=== PATIENT | female | born 1975 | race Two or more races ===

== ENCOUNTER 2021-11-03 13:07 | Emergency (ER) | payer MEDICAID, SELFPAY ==
[2021-11-03 13:34] VITALS: BP 158/85; PULSE 93; RESP 18; TEMP 36.6; O2SAT 100
[2021-11-03 13:57] LABS: MANUAL DIFF FLAG NO
[2021-11-03 14:00] LABS: Basophils Percent Auto 0.3 % (0-2); Eosinophils Absolute Auto 0.1 X10*3/uL (0.0-0.4); Eosinophils Percent Auto 0.8 % (0-4); Hematocrit 40.9 % (37.0-47.0); Hemoglobin 13.8 g/dl (12.0-16.0); Imm Gran Abs Auto 0.03 X10*3/uL (0.00-0.03); Imm Gran Pct Auto 0.4 % (0.0-0.4); Lymphocytes Absolute Auto 1.8 X10*3/uL (1.2-4.9); Lymphocytes Percent Auto 22.6 % (20-40); Mean Corpuscular HGB Conc 33.7 g/dl (31.0-35.0); Mean Corpuscular Hemoglobin 32.9 pg (27.0-33.0); Mean Corpuscular Volume 97.6 fL (80.0-98.0); Mean Platelet Volume 8.8 fL (9.4-12.3); Monocytes Absolute Auto 0.4 X10*3/uL (0.1-1.2); Monocytes Percent Auto 4.5 % (2-11); Neutrophils Absolute Auto 5.6 x10*3/uL (2.0-8.3); Neutrophils Percent Auto 71.4 % (45-73); Platelet Count 179 X10*3/uL (160-400); Red Blood Count 4.19 X10*6/uL (4.20-5.50); Red Cell Distribution Width 12.6 % (11.0-16.0); White Blood Count 7.8 X10*3/uL (4.8-10.8)
[2021-11-03 14:09] LABS: Anion Gap 14 (12-20); Blood Urea Nitrogen 9 mg/dL (9-16); Calcium 9.4 mg/dL (8.4-10.2); Carbon Dioxide 28 mmol/L (22-29); Chloride 103 mmol/L (96-108); Creatinine Clr Calc Pharmacy 69.2; Estimated Glomerular Filt Rate > 60; Glucose Random 119 mg/dL (60-115); Potassium 4.5 mmol/L (3.3-5.1); Sodium 140 mmol/L (135-145)
== END 2021-11-03 16:56 | disposition left against medical advice (07) ==
PROVIDERS: Emergency Provider Emergency Medicine
DX: R51.9 Headache, unspecified (principal); R11.10 Vomiting, unspecified; I10 Essential (primary) hypertension
CPT/HCPCS: 36415; 80048; 85025; 99281; 99283

== ENCOUNTER 2022-01-15 13:10 | Outpatient (REF) | payer MEDICAID, SELFPAY ==
--- NOTE | ~2022-01-15 | MM_ITS ---
EXAMINATION: MM DIAGNOSTIC DIGITAL BREAST TOMOSYNTHESIS, BILATERAL TARGETED LEFT BREAST ULTRASOUND CLINICAL INFORMATION: Left breast pain. COMPARISON: Mammography: 03/10/2018. TECHNIQUE: Digital breast tomosynthesis is performed in both the craniocaudal and mediolateral oblique views along with computer-aided detection (CAD). Synthesized 2D images are generated from the tomosynthesis. Additional right breast exaggerated craniocaudal view was performed. Targeted left breast ultrasound. FINDINGS: There are scattered areas of fibroglandular density (ACR BI-RADS breast composition Category b). There has been symmetric increase in breast density since the previous study of 2019. I have no history of possible breast mammoplasty or significant loss of weight. There are no significant masses, abnormal calcifications, or other abnormalities. There is a question of asymmetric density in the deep lateral aspect of the right breast on craniocaudal view; however, on exaggerated craniocaudal view this is seen to have represented superimposition of fibroglandular tissue with no residual suspicious abnormality. Targeted left breast ultrasound in the region of the patients pain did not demonstrate any abnormal cystic or solid mass. No region of abnormal distal sound shadowing was identified. No edematous change within the parenchyma is seen. The results were discussed with the patient at the time of the visit. MM/MM tomosynthesis diagnostic BI IMPRESSION: No mammographic or ultrasound evidence of malignancy. ASSESSMENT: BI-RADS 1: Negative. RECOMMENDATION: Routine annual mammography screening. Clinical follow up. This patient's information was entered into a reminder system with a target due date for their next mammogram.
== END 2022-01-15 13:11 | disposition home or self-care (01) ==
LOC: HO.MAMMO 13:10
PROVIDERS: PCP Advanced Practice Midwife; Visit Provider Advanced Practice Midwife
DX: N64.4 Mastodynia (principal)
CPT/HCPCS: 76642; 77062; 77066

== ENCOUNTER → 2022-02-18 11:18 | Outpatient (BNVA) | payer MEDICAID, SELFPAY | PROVIDERS: PCP Advanced Practice Midwife; Referring Provider Advanced Practice Midwife; Visit Provider Physician Assistant | DX: Z12.11 Encounter for screening for malignant neoplasm of colon (principal); B20 Human immunodeficiency virus [HIV] disease; F17.210 Nicotine dependence, cigarettes, uncomplicated; F12.20 Cannabis dependence, uncomplicated; F14.20 Cocaine dependence, uncomplicated; Z91.14 Patient's other noncompliance with medication regimen | CPT/HCPCS: 99202 ==

== ENCOUNTER 2022-02-23 09:56 | Outpatient (REF) | payer MEDICAID, SELFPAY ==
--- NOTE | ~2022-02-23 | XR_ITS ---
EXAMINATION: XR chest 2V CLINICAL INFORMATION: Reason for Exam SYMPTOMS AND SIGNS INVOLVING THE CIRC AND RESP SYSTEM COMPARISON: Chest radiograph 04/28/2017 TECHNIQUE: 2 views of the chest FINDINGS: Clear lungs. No pneumothorax or pleural effusion. Normal cardiomediastinal silhouette. XR/XR chest 2V IMPRESSION: * Clear lungs.
== END 2022-02-23 09:57 | disposition home or self-care (01) ==
LOC: HO.RESP 09:56
PROVIDERS: PCP Registered Nurse; Visit Provider Registered Nurse
DX: R09.89 Other specified symptoms and signs involving the circulatory and respiratory systems (principal); R06.02 Shortness of breath
CPT/HCPCS: 71046

== ENCOUNTER 2022-07-13 10:09 | Emergency (ER) | payer MEDICAID, SELFPAY ==
--- NOTE | ~2022-07-13 | CT_ITS ---
EXAMINATION: CT ABDOMEN AND PELVIS WITH CONTRAST CLINICAL INFORMATION: Pelvic pain. Low back pain. COMPARISON: Previous CT of the abdomen and pelvis July 2017 TECHNIQUE: Multidetector volumetric images were obtained from the superior aspect of the liver through the pubic symphysis following administration 85 mL of Omnipaque 350 intravenous contrast. Sagittal and coronal reformatted images were obtained on the technologist's workstation. Oral contrast: Yes This CT examination was performed using dose optimization techniques as appropriate, variously including the following: *Automated exposure control *Adjustment of mA and/or kV according to patient size (this includes techniques or standardized protocols for targeted exams where dose is matched to indication/reason for exam; i.e. extremities or head) *Use of iterative reconstruction technique DLP: 601 mGy-cm FINDINGS: LUNG BASES: The visualized lung bases are unremarkable. LIVER, GALLBLADDER, AND BILIARY TREE: The liver is normal in size, shape and attenuation. No focal hepatic lesion or biliary ductal dilatation is present. The gallbladder has been removed. PANCREAS: Unremarkable. SPLEEN: Unremarkable. ADRENAL GLANDS: Unremarkable. KIDNEYS: Small nonobstructing stone. Small cyst in the upper pole. No imaging follow-up recommended. The right kidney is normal. BLADDER: Unremarkable. GASTROINTESTINAL TRACT: The small and large bowel are unremarkable. The appendix is unremarkable. ABDOMINAL WALL: No significant hernia is appreciated. LYMPH NODES: Normal. VASCULAR: Unremarkable. PELVIC VISCERA: Unremarkable. OSSEOUS STRUCTURES: Curvature of the lower lumbar spine to the left. CT/CT abdomen pelvis w IV con IMPRESSION: Small nonobstructing left renal stone. Fleischner guidelines were followed.
[2022-07-13 10:11] VITALS: BP 158/89; PULSE 108; RESP 17; TEMP 36.6; O2SAT 97; BMI 33.5
[2022-07-13 11:33] LABS: MANUAL DIFF FLAG NO
[2022-07-13 11:40] LABS: Basophils Percent Auto 0.5 % (0-2); Eosinophils Absolute Auto 0.1 X10*3/uL (0.0-0.4); Hematocrit 41.3 % (37.0-47.0); Hemoglobin 14.1 g/dl (12.0-16.0); Imm Gran Abs Auto 0.05 X10*3/uL (0.00-0.03); Imm Gran Pct Auto 0.6 % (0.0-0.4); Lymphocytes Absolute Auto 2.6 X10*3/uL (1.2-4.9); Lymphocytes Percent Auto 29.3 % (20-40); Mean Corpuscular HGB Conc 34.1 g/dl (31.0-35.0); Mean Corpuscular Hemoglobin 32.7 pg (27.0-33.0); Mean Corpuscular Volume 95.8 fL (80.0-98.0); Mean Platelet Volume 9.1 fL (9.4-12.3); Monocytes Absolute Auto 0.6 X10*3/uL (0.1-1.2); Monocytes Percent Auto 6.4 % (2-11); Neutrophils Absolute Auto 5.5 x10*3/uL (2.0-8.3); Neutrophils Percent Auto 62.2 % (45-73); Platelet Count 150 X10*3/uL (160-400); Red Blood Count 4.31 X10*6/uL (4.20-5.50); Red Cell Distribution Width 12.8 % (11.0-16.0); White Blood Count 8.9 X10*3/uL (4.8-10.8)
[2022-07-13 12:28] LABS: Alanine Aminotransferase 19 U/L (0-31); Albumin Level 3.8 g/dL (3.5-5.0); Alkaline Phosphatase 91 U/L (39-117); Anion Gap 13 (12-20); Aspartate Amino Transferase 24 U/L (5-31); Bilirubin Direct 0.2 mg/dL (0.0-0.5); Bilirubin Total 0.6 mg/dL (0.0-1.0); Blood Urea Nitrogen 9 mg/dL (9-16); Calcium 8.6 mg/dL (8.4-10.2); Carbon Dioxide 18 mmol/L (22-29); Chloride 111 mmol/L (96-108); Creatinine Clr Calc Pharmacy 106.5; Estimated Glomerular Filt Rate > 60; Glucose Random 96 mg/dL (60-115); Lipase 16 U/L (8-78); Potassium 4.2 mmol/L (3.3-5.1); Sodium 138 mmol/L (135-145)
--- NOTE | 2022-07-13 12:37 | ED.GENADULT ---
HPI - General Adult General Chief complaint: Abdominal Pain Stated complaint: Back pain/L flank pain Time Seen by Provider: 07/13/22 12:32 Source: patient Mode of arrival: ambulatory Limitations: no limitations History of Present Illness HPI narrative: Patient is a 46 year old female with a past medical history of HIV (viral load undetectable), Hypertension, and Asthma. She had a colposcopy done on 06/04 at and since then has been experiencing pelvic pain radiating to her lower back, and LLQ pain. She also endorses fever, LOPEZ, and SOB. She is able to urinate and stool, but is having pain with urination. She also endorses frequent white vaginal discharge. She states she has not noticed any vaginal bleeding. She has no vaginal itching. She has taken Tylenol for pain which has not helped. She is not experiencing any chest pain. Onset (ago): month(s) (1) Location: back, abdomen and pelvis Radiation: back and flank Severity scale (1-10): 4 Relieving factors: none Exacerbating factors: none Associated symptoms: denies other symptoms Treatments prior to arrival: other (Tylenol) Related Data Home Medications Medication Instructions Recorded Confirmed atovaquone 750 mg/5 mL oral 750 mg PO BID 02/18/22 suspension bictegravir 50 mg-emtricitabine 1 tab PO DAILY 02/18/22 200 mg-tenofovir alafenam 25 mg tablet (Biktarvy) blood pressure test kit-large #1 ea 02/18/22 budesonide-formoterol HFA 160 2 puff inhalation 02/18/22 mcg-4.5 mcg/actuation aerosol inhaler (Symbicort) cyanocobalamin (vitamin B-12) 1,000 mcg PO DAILY 02/18/22 1,000 mcg tablet lisinopril 20 mg tablet 20 mg PO DAILY 02/18/22 multivitamin with folic acid 400 1 tab PO DAILY 02/18/22 mcg tablet (Tab-A-Max) quetiapine 150 mg tablet,extended 150 mg PO QPM 02/18/22 release 24 hr rosuvastatin 20 mg tablet 20 mg PO BEDTIME 02/18/22 sertraline 25 mg tablet 25 mg PO DAILY 02/18/22 sulfamethoxazole 800 1 tab PO DAILY 02/18/22 mg-trimethoprim 160 mg tablet sumatriptan succinate 50 mg tablet 50 mg PO migraine 02/18/22 varenicline 0.5 mg (11)-1 mg (42) ea PO DIRECTED 02/18/22 tablets in a dose pack Previous Rx's Medication Instructions Recorded bisacodyl 5 mg tablet,delayed 10 mg PO ONCE colonoscopy prep 1 02/18/22 release (Dulcolax (bisacodyl)) day #2 tabs polyethylene glycol 3350 17 238 g PO ONCE 1 day #238 grams 02/18/22 gram/dose oral powder (Miralax) cephalexin 500 mg capsule 500 mg PO Q6H 7 days #28 caps 07/13/22 doxycycline hyclate 100 mg tablet 100 mg PO BID 7 days #14 tabs 07/13/22 fluconazole 150 mg tablet 150 mg PO Q3D 2 doses #2 tabs 07/13/22 (Diflucan) metronidazole 500 mg tablet 500 mg PO BID 7 days #14 tabs 07/13/22 naproxen 500 mg tablet 500 mg PO BID 7 days #14 tabs 07/13/22 prednisone 20 mg tablet 20 mg PO DAILY 7 days #7 tabs 07/13/22 tamsulosin 0.4 mg capsule 0.4 mg PO BEDTIME #7 caps 07/13/22 Allergies Allergy/AdvReac Type Severity Reaction Status Date / Time hydrocodone [From VICODIN] Allergy Intermediate RASH, Unverified 02/18/22 11:53 SWELLING acetaminophen [Vicodin] Allergy Unknown Unknown Verified 02/18/22 11:53 Review of Systems Constitutional: Constitutional: Reports fever(s) and Reports headache(s) Eyes: Eyes: Reports no additional eye complaints, Denies blurry vision, Denies change in vision, Denies diplopia, Denies eye discharge, Denies loss of vision and Denies eye pain ENT: Reports headache(s) and Reports nasal discharge Cardiovascular: Cardiovascular: Denies chest pain and Reports dyspnea Respiratory: Respiratory: Reports dyspnea Gastrointestinal: Gastrointestinal: Reports abdominal pain Genitourinary: Genitourinary: Denies abnormal vaginal bleeding, Denies genital pruritis, Reports dysuria, Reports pelvic pain, Reports flank pain and Reports vaginal discharge Musculoskeletal: Musculoskeletal: Reports back pain Neurologic: Reports headache(s) and Denies loss of vision Psychiatric: Psychiatric: Reports no additional psychiatric complaints Endocrine: Endocrine: Reports no additional endocrine complaints Hematologic/Lymphatic: Hematologic/Lymphatic: Reports no additional hematologic/lymphatic complaints Allergic/Immunologic: Allergic/Immunologic: Reports no additional allergic/immunologic complaints [facility] Past Medical History Attestation statement: The following information was validated with the patient. Source: old records reviewed and nursing notes reviewed Medical History HIV (human immunodeficiency virus infection) Surgical History History of esophagogastroduodenoscopy (EGD) Family History Family History Unknown No problems noted. Social History Social History Household Members Other:: Lives with her mother, 4 kids live in [place] Alcohol intake: former Patient Tobacco Use Status: Current everyday Tobacco user Cigarette Packs Per Day: 2 Advance Directives: No Advance Directives Information Provided: Yes Current occupational status: disabled Physical Exam ED Vital Signs: Vital Signs - 24 hr 07/13/22 10:11 07/13/22 14:05 07/13/22 16:00 Temperature 97.9 F 98.2 F Pulse Rate 108 H 109 H 105 H Respiratory Rate 17 16 16 Blood Pressure 158/89 H 151/71 H 158/90 H Pulse Oximetry 97 97 97 Oxygen Delivery Method Nasal Cannula Room Air Room Air BMI result Body Mass Index 33.5 Const General: acute distress and ill appearing Nutritional Appearance: well nourished Orientation/consciousness: patient oriented x3 Limitations: no limitations [facility] Head: Yes normal to inspection and Yes atraumatic Ears: hearing grossly normal bilaterally and external ears normal General nose exam: Normal external nose present, no nasal discharge noted and no epistaxis Face and sinus: Yes normal facial exam, No abrasion and No laceration Mouth: Normal oral and palatal mucosa present, no drooling and no muffled voice Eyes General: appearance normal, both eyes and all related structures Periorbital: periorbital findings normal Eyelids: Yes eyelids normal Conjunctivae: conjunctivae normal Pupils: Equal, round and reactive pupils present EOM: EOMs intact bilaterally Neck Neck: Yes normal visual inspection, Yes full ROM and Yes no lymphadenopathy Chest Chest palpation & inspection: normal inspection of the chest Resp Effort & Inspection: normal respiratory effort Auscultation: clear to auscultation bilaterally, no crackles, no rhonchi and no wheezes Cardio Rate: tachycardic Rhythm: regular rhythm Heart sounds: S1 normal heart sound present and S2 normal heart sound present GI Inspection: Yes normal to inspection Palpation (GI): Soft to palpation and Tenderness to palpation present (GI) Auscultation: normal bowel sounds General: Yes CVA tenderness Back/Spine/Pelvis Back: CVA tenderness and back tenderness Thoracic/Lumbar Spine: lumbar spinal tenderness Pelvis: Other pelvic findings (pelvic tenderness) Sacrum: tenderness Coccyx: Coccyx tenderness present and Other pelvic findings (pelvic tenderness) Neuro General: patient oriented x3 Cranial nerves: Yes Equal, round and reactive pupils present Cognition (Neuro): normal cognition Motor exam (neuro): 5/5 motor strength present throughout Sensory Exam: Normal double simultaneous stimulation for sensation Coordination: [id number] test normal Extrem General: Yes normal to inspection, Yes full ROM and Yes capillary refill normal Psych Appearance: grossly normal Mental Status: mental status grossly normal Affect: normal affect Attitude: cooperative Thought process: Normal thought process present Thought content: Normal thought content present Insight: Good insight present (Psych) Medications Administered Discontinued Medications Generic Name Dose Route Start Last Admin Trade Name Freq PRN Reason Stop Dose Admin Sodium Chloride 1,000 mls @ 999 mls/hr 07/13/22 13:00 07/13/22 14:35 Ns IV 07/13/22 14:00 Infused .Q1H1M JUAN Infusion Ceftriaxone Sodium 2 gm/ 50 mls @ 100 mls/hr 07/13/22 12:54 07/13/22 14:34 Sodium Chloride IV 07/13/22 13:23 Infused ONCE ONE Infusion Iohexol 100 ml 07/13/22 13:57 07/13/22 13:57 Iohexol 350 Mg/Ml 100 Ml Infus..Btl IV 07/13/22 13:58 85 ml ONCE ONE Administration Ketorolac Tromethamine 15 mg 07/13/22 12:48 07/13/22 13:14 Ketorolac Tromethamine 15 Mg/Ml Vial IVPUSH 07/13/22 12:49 15 mg ONCE ONE Administration Morphine Sulfate 4 mg 07/13/22 14:49 07/13/22 14:53 Morphine Sulfate 4 Mg/Ml Cartridge IVPUSH 07/13/22 14:50 4 mg ONCE ONE Administration Protocol Medical Decision Making Medical Decision Making [facility] Narrative: Patient is a 46 year old assigned female at with a history of HIV (non-detectable viral load) presenting to the emergency department today with vaginal discharge and left flank pain. Patient's physical exam showed left sided CVA tenderness. Patient deferred a vaginal examination. Patient's blood work was unremarkable. Patient's urine showed an acute urinary tract infection. Patient's abdomen/pelvis CT showed a left non-obstructing kidney stone. I called and spoke to the provider that performed the colposcopy on 06/04/2022 who agreed with the plan to cover the patient for BV, yeast, and the UTI as well as giving the patient medications to assist the passing of the stone. I explained my physical exam findings as well as all test results to the patient. I answered all questions asked by the patient. I stressed the importance of the patient taking her medication as prescribed. I stressed the importance of the patient following up with her primary care provider, a urologist, and her OBGYN. I stressed the importance of the patient returning to the emergency department immediately if her symptoms were to worsen or if she were to develop any dizziness, shortness of breath, difficulty breathing, chest pain, blurry vision, loss of vision, nausea, vomiting, abdominal pain, fever, chills, back pain, or any other complaints. Patient verbalized agreement and understanding with this treatment plan and discharge. Differential Diagnosis Differential Diagnoses: The differential diagnosis associated with the presentation includes BV, UTI, kidney stone Consult Healthcare Provider Management of the patient was discussed with: Dispatcher Chief [employer] Sl[employer] (as noted in the MDM portion of this chart) Lab Data [facility] Lab Attestation statement: I reviewed the patient's lab results. 07/13/22 11:29 07/13/22 11:30 Labs: Lab Results 07/13/22 07/13/22 07/13/22 Range/Units 11:29 11:29 11:30 WBC 8.9 (4.8-10.8) X10*3/uL RBC 4.31 (4.20-5.50) X10*6/uL Hgb 14.1 (12.0-16.0) g/dl Hct 41.3 (37.0-47.0) % MCV 95.8 (80.0-98.0) fL MCH 32.7 (27.0-33.0) pg MCHC 34.1 (31.0-35.0) g/dl RDW 12.8 (11.0-16.0) % Plt Count 150 L (160-400) X10*3/uL MPV 9.1 L (9.4-12.3) fL Immature Gran % (Auto) 0.6 H (0.0-0.4) % Neut % (Auto) 62.2 (45-73) % Lymph % (Auto) 29.3 (20-40) % Whiteside % (Auto) 6.4 (2-11) % Eos % (Auto) 1.0 (0-4) % Baso % (Auto) 0.5 (0-2) % Lymph # (Auto) 2.6 (1.2-4.9) X10*3/uL Whiteside # (Auto) 0.6 (0.1-1.2) X10*3/uL Eos # (Auto) 0.1 (0.0-0.4) X10*3/uL Baso # (Auto) 0.0 (0.0-0.2) X10*3/uL Abs Immat Gran (auto) 0.05 H (0.00-0.03) X10*3/uL Absolute Neuts (auto) 5.5 (2.0-8.3) x10*3/uL Absolute Nucleated RBC 0.000 (0.0-0.012) X10*3/uL Nucleated RBC % (auto) 0.0 (0.0-0.2) /100WBC ESR 12 (0-20) MM/HR Sodium 138 (135-145) mmol/L Potassium 4.2 (3.3-5.1) mmol/L Chloride 111 H (96-108) mmol/L Carbon Dioxide 18 L (22-29) mmol/L Anion Gap 13 (12-20) BUN 9 (9-16) mg/dL Creatinine 0.59 (0.5-1.4) mg/dL Estim Creat Clear Calc 106.5 Estimated GFR > 60 Random Glucose 96 (60-115) mg/dL Calcium 8.6 D (8.4-10.2) mg/dL Total Bilirubin 0.6 (0.0-1.0) mg/dL Direct Bilirubin 0.2 (0.0-0.5) mg/dL AST 24 (5-31) U/L ALT 19 (0-31) U/L Alkaline Phosphatase 91 (39-117) U/L C-Reactive Protein 0.47 (< or = 0.50) mg/dL Total Protein 7.0 (6.5-8.0) g/dL Albumin 3.8 (3.5-5.0) g/dL Lipase 16 (8-78) U/L Beta HCG, Quant < 2 mIU/mL Urine Color Urine Appearance Urine pH (5.0-9.0) Ur Specific [place] (1.005-1.025) Urine Protein (Neg-Trace) mg/dL Urine Glucose (UA) (Negative) mg/dL Urine Ketones (Negative) mg/dL Urine Blood (Negative) Urine Nitrite (Negative) Ur Leukocyte Esterase (Negative) Urine RBC (0-2) /HPF Urine WBC (0-5) /HPF Ur Squamous Epith Cells (0-2) /HPF Urine Bacteria (None Seen) Hyaline Casts (0-2) /LPF Urine Test (NEGATIVE) 07/13/22 07/13/22 Range/Units 13:04 13:04 WBC (4.8-10.8) X10*3/uL RBC (4.20-5.50) X10*6/uL Hgb (12.0-16.0) g/dl Hct (37.0-47.0) % MCV (80.0-98.0) fL MCH (27.0-33.0) pg MCHC (31.0-35.0) g/dl RDW (11.0-16.0) % Plt Count (160-400) X10*3/uL MPV (9.4-12.3) fL Immature Gran % (Auto) (0.0-0.4) % Neut % (Auto) (45-73) % Lymph % (Auto) (20-40) % Whiteside % (Auto) (2-11) % Eos % (Auto) (0-4) % Baso % (Auto) (0-2) % Lymph # (Auto) (1.2-4.9) X10*3/uL Whiteside # (Auto) (0.1-1.2) X10*3/uL Eos # (Auto) (0.0-0.4) X10*3/uL Baso # (Auto) (0.0-0.2) X10*3/uL Abs Immat Gran (auto) (0.00-0.03) X10*3/uL Absolute Neuts (auto) (2.0-8.3) x10*3/uL Absolute Nucleated RBC (0.0-0.012) X10*3/uL Nucleated RBC % (auto) (0.0-0.2) /100WBC ESR (0-20) MM/HR Sodium (135-145) mmol/L Potassium (3.3-5.1) mmol/L Chloride (96-108) mmol/L Carbon Dioxide (22-29) mmol/L Anion Gap (12-20) BUN (9-16) mg/dL Creatinine (0.5-1.4) mg/dL Estim Creat Clear Calc Estimated GFR Random Glucose (60-115) mg/dL Calcium (8.4-10.2) mg/dL Total Bilirubin (0.0-1.0) mg/dL Direct Bilirubin (0.0-0.5) mg/dL AST (5-31) U/L ALT (0-31) U/L Alkaline Phosphatase (39-117) U/L C-Reactive Protein (< or = 0.50) mg/dL Total Protein (6.5-8.0) g/dL Albumin (3.5-5.0) g/dL Lipase (8-78) U/L Beta HCG, Quant mIU/mL Urine Color Yellow Urine Appearance Cloudy Urine pH 7.0 (5.0-9.0) Ur Specific [place] 1.025 (1.005-1.025) Urine Protein Trace (Neg-Trace) mg/dL Urine Glucose (UA) Negative (Negative) mg/dL Urine Ketones Negative (Negative) mg/dL Urine Blood Negative (Negative) Urine Nitrite Negative (Negative) Ur Leukocyte Esterase Moderate (2+) H (Negative) Urine RBC 3-5 H (0-2) /HPF Urine WBC 21-50 H (0-5) /HPF Ur Squamous Epith Cells 3-5 (0-2) /HPF Urine Bacteria 1+ (None Seen) Hyaline Casts 0-2 (0-2) /LPF Urine Test NEGATIVE (NEGATIVE) Independent Interpretation I performed an independent interpretation of an: CT Scan Interpretation: My interpretation is in agreement with the radiologist's impression of this imaging study. EXAMINATION: CT ABDOMEN AND PELVIS WITH CONTRAST? CLINICAL INFORMATION: Pelvic pain. Low back pain.? COMPARISON: Previous CT of the abdomen and pelvis July 2017 TECHNIQUE: Multidetector volumetric images were obtained from the superior aspect of the liver through the pubic symphysis following administration 85 mL of Omnipaque 350 intravenous contrast. Sagittal and coronal reformatted images were obtained on the technologist's workstation.? Oral contrast: Yes This CT examination was performed using dose optimization techniques as appropriate, variously including the following: *Automated exposure control *Adjustment of mA and/or kV according to patient size (this includes techniques or standardized protocols for targeted exams where dose is matched to indication/reason for exam; i.e. extremities or head) *Use of iterative reconstruction technique DLP: 601 mGy-cm FINDINGS: LUNG BASES: The visualized lung bases are unremarkable.? LIVER, GALLBLADDER, AND BILIARY TREE: The liver is normal in size, shape and attenuation. No focal hepatic lesion or biliary ductal dilatation is present. The gallbladder has been removed. PANCREAS: Unremarkable.? SPLEEN: Unremarkable.? ADRENAL GLANDS: Unremarkable.? KIDNEYS: Small nonobstructing stone. Small cyst in the upper pole. No imaging follow-up recommended. The right kidney is normal. BLADDER: Unremarkable.? GASTROINTESTINAL TRACT: The small and large bowel are unremarkable. The appendix is unremarkable.? ABDOMINAL WALL: No significant hernia is appreciated.? LYMPH NODES: Normal. VASCULAR: Unremarkable. PELVIC VISCERA: Unremarkable.? OSSEOUS STRUCTURES: Curvature of the lower lumbar spine to the left. CT/CT abdomen pelvis w IV con IMPRESSION: Small nonobstructing left renal stone. ? Fleischner guidelines were followed. Dictated By: Tamica Benoit MD Signed By: Electronically signed by Tamica Benoit MD 07/13/22 1526 Critical Care Time Critical Care Time Critical Care Time: Yes Total Critical Care Time: 45 Attestation: I spent 45 minutes of Critical Care Time with this patient. This does not include time spent on separately reported billable procedures. Discharge Plan Discharge Clinical Impression: Kidney stone, Vaginal discharge Patient Disposition: Home, Self-Care Instructions: Kidney Stones (ED), Vaginal Discharge (ED) Additional Instructions: Follow up with your primary care provider, your urologist, and an OBGYN. Keep your appointment at your OBGYN for 07/26/2022. Return to the emergency department immediately if your symptoms worsen or if you develop any dizziness, shortness of breath, difficulty breathing, chest pain, blurry vision, loss of vision, nausea, vomiting, abdominal pain, fever, chills, back pain, or any other complaints. Prescriptions: New fluconazole [Diflucan] 150 mg tablet 150 mg PO Q3D Qty: 2 0RF prednisone 20 mg tablet 20 mg PO DAILY 7 Days Qty: 7 0RF cephalexin 500 mg capsule 500 mg PO Q6H 7 Days Qty: 28 0RF doxycycline hyclate 100 mg tablet 100 mg PO BID 7 Days Qty: 14 0RF naproxen 500 mg tablet 500 mg PO BID 7 Days Qty: 14 0RF tamsulosin 0.4 mg capsule 0.4 mg PO BEDTIME Qty: 7 0RF metronidazole 500 mg tablet 500 mg PO BID 7 Days Qty: 14 0RF No Action Biktarvy 50-200-25 mg tablet 1 tab PO DAILY quetiapine 150 mg tablet extended release 24 hr 150 mg PO QPM sertraline 25 mg tablet 25 mg PO DAILY budesonide-formoterol [Symbicort] 160-4.5 mcg/actuation HFA aerosol inhaler 2 puff inhalation sumatriptan succinate 50 mg tablet 50 mg PO lisinopril 20 mg tablet 20 mg PO DAILY (DME) blood pressure test kit-large Kit See Rx Instructions .ROUTE .MEDSUPPLY Qty: 1 Rx Instructions: As directed varenicline 0.5 mg (11)- 1 mg (42) tablets,dose pack PO DIRECTED cyanocobalamin (vitamin B-12) 1,000 mcg tablet 1,000 mcg PO DAILY sulfamethoxazole-trimethoprim 800-160 mg tablet 1 tab PO DAILY rosuvastatin 20 mg tablet 20 mg PO BEDTIME multivitamin with folic acid [Tab-A-Max] 400 mcg tablet 1 tab PO DAILY atovaquone 750 mg/5 mL suspension 750 mg PO BID bisacodyl [Dulcolax (bisacodyl)] 5 mg tablet,delayed release (DR/EC) 10 mg PO ONCE 1 Days Qty: 2 0RF Rx Instructions: Take 2 tablets by mouth at 12:00pm the day before your procedure. polyethylene glycol 3350 [Miralax] 17 gram/dose powder 238 g PO ONCE 1 Days Qty: 238 0RF Rx Instructions: Take as directed by mouth the day before your procedure. [place]: [facility] [place] [facility] [place]] (Call to establish and follow up with a urologist. ) Fanny Pedersen, TEXTILE SCIENCE TECHNICIAN [Primary Care Provider] - Stand Alone Forms: Work/School Release Print Language: Romansh
[2022-07-13] MEDS: 0.9 % Sodium Chloride 1,000 ML 999 ML IV (13:14)
[2022-07-13] MEDS: Ketorolac Tromethamine 15 MG/ML VIAL IVPUSH (13:14)
[2022-07-13] MEDS: cefTRIAXone sodium 2 GM in 0.9 % Sodium Chloride 50 ML IV (13:14)
[2022-07-13 13:21] LABS: Appearance Urine Cloudy; Color Urine Yellow; Glucose Urine UA Negative (Negative); Leukocyte Esterase Urine Moderate (2+) (Negative); Nitrite Urine Negative (Negative); Specific Gravity - Urine 1.025 (1.005-1.025); UMIC TRIGGER UACC YES; Urine Blood Negative (Negative); Urine Ketones Negative (Negative); Urine Protein Trace mg/dL (Neg-Trace)
[2022-07-13 13:23] LABS: UPreg QC Valid YES; Urine Pregnancy NEGATIVE (NEGATIVE)
[2022-07-13 13:26] LABS: Bacteria Urine 1+ (None Seen); Hyaline Casts Urine 0-2 /LPF (0-2); UACC Culture Trigger YES; WBC Urine 21-50 /HPF (0-5)
[2022-07-13 13:28] LABS: C Reactive Protein 0.47 mg/dL (< or = 0.50)
[2022-07-13 13:46] LABS: HCG Quantitative < 2 mIU/mL
[2022-07-13 13:57] LABS: Erythrocyte Sedimentation Rate 12 MM/HR (0-20)
[2022-07-13] MEDS: iohexoL 350 MG/ML 100 ML INFUS..BTL IV (13:57)
[2022-07-13 14:05] VITALS: BP 151/71; PULSE 109; RESP 16; O2SAT 97
[2022-07-13] MEDS: Morphine Sulfate 4 MG/ML CARTRIDGE IVPUSH (14:53)
[2022-07-13 16:00] VITALS: BP 158/90; PULSE 105; RESP 16; TEMP 36.8; O2SAT 97
[2022-07-13] MEDS: oxyCODONE HCl Immed Release 5 MG TABLET 10 MG PO (17:58)
[2022-07-13] MEDS: cefTRIAXone sodium 500 MG, Lidocaine HCl 1 % MPF 1 ML IM (17:58)
== END 2022-07-13 18:02 | disposition home or self-care (01) ==
PROVIDERS: Physician Assistant Medical; Emergency Provider Emergency Medicine; PCP Registered Nurse
DX: N20.0 Calculus of kidney (principal); N89.8 Other specified noninflammatory disorders of vagina; B20 Human immunodeficiency virus [HIV] disease; F17.210 Nicotine dependence, cigarettes, uncomplicated; Z79.02 Long term (current) use of antithrombotics/antiplatelets; Z79.899 Other long term (current) drug therapy
CPT/HCPCS: 36415; 74177; 80048; 80076; 81001; 81025; 83690; 84702; 85025; 85652; 86140; 87086; 96365; 96372; 96375; 99285; J0696; J1885; J2270; Q9967

== ENCOUNTER 2022-08-26 15:35 | Emergency (ER) | payer MEDICAID, SELFPAY ==
[2022-08-26] VITALS (7 sets, daily range): BP systolic 144–166; BP diastolic 68–81; PULSE 83–92; RESP 16–19; TEMP 36.7–37.3; O2SAT 97–100; BMI 35.9
--- NOTE | ~2022-08-26 | CT_ITS ---
EXAMINATION: CT ABDOMEN AND PELVIS WITHOUT CONTRAST CLINICAL INFORMATION: Left-sided abdominal pain. History of obstructing ureter stone COMPARISON: None available. TECHNIQUE: Multidetector volumetric imaging was performed from the superior aspect of the liver through the pubic symphysis. Sagittal and coronal reformatted images were obtained on the technologist's workstation. This CT examination was performed using dose optimization techniques as appropriate, variously including the following: *Automated exposure control *Adjustment of mA and/or kV according to patient size (this includes techniques or standardized protocols for targeted exams where dose is matched to indication/reason for exam; i.e. extremities or head) *Use of iterative reconstruction technique DLP: 6:30 mGy-cm FINDINGS: LUNG BASES: There is minimal left basilar atelectasis. Heart size is normal. LIVER, GALLBLADDER, AND BILIARY TREE: The liver is normal in size, shape, and attenuation. No focal hepatic lesion or biliary ductal dilatation is present. The gallbladder has been surgically removed. PANCREAS: Unremarkable. SPLEEN: Unremarkable. ADRENAL GLANDS: Unremarkable. KIDNEYS AND URETERS: The kidneys are normal in size, shape, and attenuation. There is a nonobstructive 3 mm radiopaque calculi mid pole left kidney. Right kidney is unremarkable. No caliectasis or hydronephrosis seen. A 7 mm hypodensity seen upper pole left kidney probable small cyst. BLADDER: Unremarkable. GASTROINTESTINAL TRACT: There is a large amount of stool and gas seen in the colon without any significant distention. The small bowel loops are normal caliber. Appendix is normal caliber with intraluminal hyperdense material likely appendicolith. There is no fat stranding. ABDOMINAL WALL: No significant hernia is appreciated. LYMPH NODES: No abnormal retroperitoneal lymph nodes. VASCULAR: There is atherosclerotic calcification of abdominal aorta and common iliac vessels PELVIC VISCERA: There are several phleboliths in the pelvis. The uterus is anteverted and unremarkable. No adnexal mass or free fluid seen. OSSEOUS STRUCTURES: No aggressive lytic or sclerotic process seen. CT/CT abdomen pelvis wo IV con IMPRESSION: 1. Nonobstructive 3 mm radiopaque calculi mid pole left kidney. No caliectasis or hydronephrosis seen. Probable small cyst upper pole left kidney. No change from CT abdomen and pelvis 07/13/2022. 2. Moderate constipation without obstruction. Fleischner guidelines were followed.
--- NOTE | 2022-08-26 15:49 | ED_ITS ---
HPI - General Adult General Chief complaint: Abdominal Pain Stated complaint: Lower back pain/abd pain/feet swollen/n Time Seen by Provider: 08/26/22 19:16 Source: patient and family Mode of arrival: ambulatory Limitations: no limitations History of Present Illness HPI narrative: 46-year-old female presented with left flank pain/left side abdominal pain with the decrease urine output for the last 3 days patient also has been complaining of lower extremity swelling. Patient had a history of kidney stone in the past, patient also feels nauseous. No dysuria, no frequency urination. Normal bowel movement, passing flatus. Related Data Home Medications Medication Instructions Recorded Confirmed atovaquone 750 mg/5 mL oral 750 mg PO BID 02/18/22 suspension bictegravir 50 mg-emtricitabine 1 tab PO DAILY 02/18/22 200 mg-tenofovir alafenam 25 mg tablet (Biktarvy) blood pressure test kit-large #1 ea 02/18/22 budesonide-formoterol HFA 160 2 puff inhalation 02/18/22 mcg-4.5 mcg/actuation aerosol inhaler (Symbicort) cyanocobalamin (vitamin B-12) 1,000 mcg PO DAILY 02/18/22 1,000 mcg tablet lisinopril 20 mg tablet 20 mg PO DAILY 02/18/22 multivitamin with folic acid 400 1 tab PO DAILY 02/18/22 mcg tablet (Tab-A-Max) quetiapine 150 mg tablet,extended 150 mg PO QPM 02/18/22 release 24 hr rosuvastatin 20 mg tablet 20 mg PO BEDTIME 02/18/22 sertraline 25 mg tablet 25 mg PO DAILY 02/18/22 sulfamethoxazole 800 1 tab PO DAILY 02/18/22 mg-trimethoprim 160 mg tablet sumatriptan succinate 50 mg tablet 50 mg PO migraine 02/18/22 varenicline 0.5 mg (11)-1 mg (42) ea PO DIRECTED 02/18/22 tablets in a dose pack Previous Rx's Medication Instructions Recorded bisacodyl 5 mg tablet,delayed 10 mg PO ONCE colonoscopy prep 1 02/18/22 release (Dulcolax (bisacodyl)) day #2 tabs polyethylene glycol 3350 17 238 g PO ONCE 1 day #238 grams 02/18/22 gram/dose oral powder (Miralax) cephalexin 500 mg capsule 500 mg PO Q6H 7 days #28 caps 07/13/22 doxycycline hyclate 100 mg tablet 100 mg PO BID 7 days #14 tabs 07/13/22 fluconazole 150 mg tablet 150 mg PO Q3D 2 doses #2 tabs 07/13/22 (Diflucan) metronidazole 500 mg tablet 500 mg PO BID 7 days #14 tabs 07/13/22 naproxen 500 mg tablet 500 mg PO BID 7 days #14 tabs 07/13/22 prednisone 20 mg tablet 20 mg PO DAILY 7 days #7 tabs 07/13/22 tamsulosin 0.4 mg capsule 0.4 mg PO BEDTIME #7 caps 07/13/22 Allergies Allergy/AdvReac Type Severity Reaction Status Date / Time hydrocodone [From VICODIN] Allergy Intermediate RASH, Verified 08/26/22 20:33 SWELLING acetaminophen [Vicodin] Allergy Unknown Unknown Verified 08/26/22 20:33 Review of Systems Review of Systems: All other systems are reviewed and are negative Constitutional: Reports as per HPI and Reports no additional constitutional complaints Eyes: Reports as per HPI and Reports no additional eye complaints Reports system reviewed and no additional complaints, except as documented Cardiovascular: Reports as per HPI and Reports no additional cardiovascular complaints Respiratory: Reports as per HPI and Reports no additional respiratory complaints Gastrointestinal: Reports as per HPI and Reports no additional gastrointestinal complaints Genitourinary: Reports no additional female genitourinary complaints Musculoskeletal: Reports no additional musculoskeletal complaints Skin/Breast: Reports system reviewed and no additional complaints, except as docu Psychiatric: Reports no additional psychiatric complaints Endocrine: Reports no additional endocrine complaints Hematologic/Lymphatic: Reports no additional hematologic/lymphatic complaints Allergic/Immunologic: Reports no additional allergic/immunologic complaints Reports system reviewed and no additional complaints, except as documented and Reports Abnormal speech present [facility] Past Medical History Medical History HIV (human immunodeficiency virus infection) Surgical History History of esophagogastroduodenoscopy (EGD) Family History Family History Unknown No problems noted. Social History Social History Household Members Other:: Lives with her mother, 4 kids live in [place] Alcohol intake: former Patient Tobacco Use Status: Current everyday Tobacco user Cigarette Packs Per Day: 2 Smoked in Last 30 Days: Yes Advance Directives: No Advance Directives Information Provided: No Current occupational status: disabled Physical Exam ED Vital Signs: Vital Signs - 24 hr 08/26/22 16:13 08/26/22 20:00 08/26/22 20:27 Temperature 98.1 F 99.2 F 98.8 F Pulse Rate 90 92 89 Respiratory Rate 16 18 19 Blood Pressure 166/80 H 150/76 H 149/81 H Pulse Oximetry 99 98 100 Oxygen Delivery Method Room Air Room Air 08/26/22 20:34 08/26/22 21:27 08/26/22 21:54 Temperature 98.4 F Pulse Rate 91 Respiratory Rate 18 16 18 Blood Pressure 144/68 H Pulse Oximetry 97 Oxygen Delivery Method Room Air BMI result Body Mass Index 35.9 Vital signs have been reviewed as appeared to be correct. Blood pressure normal. Heart rate normal. Respiration rate normal. Temperature normal. Oxygen saturation normal. Appearance: Alert. Oriented X3. No acute distress. Head: Normal external exam. Normocephalic. Atraumatic. No Harvey signs noted. No raccoon eyes noted Eyes: PERRLA. EOMI. Conjunctiva and sclera normal. Eyelids normal. ENT: TM's Normal. Pharynx normal. Uvula midline. Moist mucous membranes. No t rismus noted. No drooling noted. No muffled voice noted. Neck: Normal inspection. Neck supple. FROM. No adenopathy. Thyroid Normal. No meningeal signs. No neck mass noted. CVS: Normal heart rate and rhythm. Heart sound normal. No murmurs noted. Pulses normal throughout. Respiratory: No respiratory distress. Painless inspiration. Breath sounds normal. No wheezes/rales/rhonchi noted. Chest nontender. No accessory muscle usage noted or decreased air movement noted. Abdomen: Soft and nontender. Bowel sounds normal in all 4 quadrants. No distention noted. No organomegaly noted. No visible injury noted. Back: Left CVA tenderness. Full range of motion noted. Skin: Skin warm and dry. Normal skin color. Normal skin turgor. No rashes/lesions/lacerations noted. Extremities: No lower extremity edema. Extremities exhibit normal range of motion. Extremities nontender. Neuro: Oriented X 3. Cranial nerve exam: II-XII are grossly intact No motor deficit. No sensory deficit. Reflexes normal. Course Course Course Narrative: 46-year-old female a past history of HIV (viral load undetectable), Hypertension, and Asthma presenting to the emergency for evaluation of left pain and decreased urine output since tuesday. The patient has a history of kidney stones, was seen in July. Vital signs stable. Plan: Labs, UA ordered Reevaluation(s) Reevaluation #1: 46-year-old female came in for evaluation of left-sided abdominal pain and decrease urine output, patient had a CT of the abdomen pelvis which showed nono bstructive uropathy, patient has unremarkable normal BUN/creatinine, no UTI. Patient feels better after was given pain medication in the emergency department. Will discharge to follow-up with PCP. Time: 23:21 Medications Administered Discontinued Medications Generic Name Dose Route Start Last Admin Trade Name Freq PRN Reason Stop Dose Admin Sodium Chloride 1,000 mls @ 999 mls/hr 08/26/22 20:25 08/26/22 20:35 Ns IV 08/26/22 21:25 999 mls/hr .Q1H1M ONE Administration Morphine Sulfate 1 mg 08/26/22 20:25 08/26/22 20:34 Morphine Sulfate 2 Mg/Ml Cartridge IVPUSH 08/26/22 20:26 1 mg ONCE ONE Administration Protocol Morphine Sulfate 2 mg 08/26/22 21:28 08/26/22 21:54 Morphine Sulfate 2 Mg/Ml Cartridge IVPUSH 08/26/22 21:29 2 mg ONCE ONE Administration Protocol Medical Decision Making Differential Diagnosis Differential Diagnoses: The differential diagnosis associated with the presentation includes (UTI, obstructive uropathy, dehydration, electrolytes abn ormalities, severe anemia, .) Admission/Observation Consideration of admission/observation: Escalation of care including admission/observation considered Lab Data MDM Lab Attestation statement: I reviewed the patient's lab results. 08/26/22 16:08 08/26/22 16:08 Labs: Lab Results 08/26/22 08/26/22 08/26/22 Range/Units 16:08 16:08 16:08 WBC 7.7 (4.8-10.8) X10*3/uL RBC 4.23 (4.20-5.50) X10*6/uL Hgb 13.6 (12.0-16.0) g/dl Hct 39.9 (37.0-47.0) % MCV 94.3 (80.0-98.0) fL MCH 32.2 (27.0-33.0) pg MCHC 34.1 (31.0-35.0) g/dl RDW 12.8 (11.0-16.0) % Plt Count 154 L (160-400) X10*3/uL MPV 9.1 L (9.4-12.3) fL Immature Gran % (Auto) 0.7 H (0.0-0.4) % Neut % (Auto) 56.4 (45-73) % Lymph % (Auto) 35.0 (20-40) % Sioux % (Auto) 6.3 (2-11) % Eos % (Auto) 1.2 (0-4) % Baso % (Auto) 0.4 (0-2) % Lymph # (Auto) 2.7 (1.2-4.9) X10*3/uL Sioux # (Auto) 0.5 (0.1-1.2) X10*3/uL Eos # (Auto) 0.1 (0.0-0.4) X10*3/uL Baso # (Auto) 0.0 (0.0-0.2) X10*3/uL Abs Immat Gran (auto) 0.05 H (0.00-0.03) X10*3/uL Absolute Neuts (auto) 4.3 (2.0-8.3) x10*3/uL Absolute Nucleated RBC 0.000 (0.0-0.012) X10*3/uL Nucleated RBC % (auto) 0.0 (0.0-0.2) /100WBC Sodium 139 (135-145) mmol/L Potassium 3.9 (3.3-5.1) mmol/L Chloride 110 H (96-108) mmol/L Carbon Dioxide 24 (22-29) mmol/L Anion Gap 9 L (12-20) BUN 9 (9-16) mg/dL Creatinine 0.65 (0.5-1.4) mg/dL Estim Creat Clear Calc 100.4 Estimated GFR > 60 Random Glucose 95 (60-115) mg/dL Calcium 8.8 (8.4-10.2) mg/dL Total Bilirubin 0.4 (0.0-1.0) mg/dL Direct Bilirubin 0.1 (0.0-0.5) mg/dL AST 19 (5-31) U/L ALT 15 (0-31) U/L Alkaline Phosphatase 81 (39-117) U/L B-Natriuretic Peptide (<100) pg/mL Total Protein 6.9 (6.5-8.0) g/dL Albumin 3.9 (3.5-5.0) g/dL Urine Color Urine Appearance Urine pH (5.0-9.0) Ur Specific Jefferson (1.005-1.025) Urine Protein (Neg-Trace) mg/dL Urine Glucose (UA) (Negative) mg/dL Urine Ketones (Negative) mg/dL Urine Blood (Negative) Urine Nitrite (Negative) Ur Leukocyte Esterase (Negative) Urine Test (NEGATIVE) Influenza Type A (PCR) NEGATIVE (Negative) Influenza Type B (PCR) NEGATIVE (Negative) RSV RNA Qual (PCR) NEGATIVE (Negative) SARS-CoV-2 RNA (RT-PCR) NEGATIVE (Negative) 08/26/22 08/26/22 08/26/22 Range/Units 20:03 20:03 20:08 WBC (4.8-10.8) X10*3/uL RBC (4.20-5.50) X10*6/uL Hgb (12.0-16.0) g/dl Hct (37.0-47.0) % MCV (80.0-98.0) fL MCH (27.0-33.0) pg MCHC (31.0-35.0) g/dl RDW (11.0-16.0) % Plt Count (160-400) X10*3/uL MPV (9.4-12.3) fL Immature Gran % (Auto) (0.0-0.4) % Neut % (Auto) (45-73) % Lymph % (Auto) (20-40) % Sioux % (Auto) (2-11) % Eos % (Auto) (0-4) % Baso % (Auto) (0-2) % Lymph # (Auto) (1.2-4.9) X10*3/uL Sioux # (Auto) (0.1-1.2) X10*3/uL Eos # (Auto) (0.0-0.4) X10*3/uL Baso # (Auto) (0.0-0.2) X10*3/uL Abs Immat Gran (auto) (0.00-0.03) X10*3/uL Absolute Neuts (auto) (2.0-8.3) x10*3/uL Absolute Nucleated RBC (0.0-0.012) X10*3/uL Nucleated RBC % (auto) (0.0-0.2) /100WBC Sodium (135-145) mmol/L Potassium (3.3-5.1) mmol/L Chloride (96-108) mmol/L Carbon Dioxide (22-29) mmol/L Anion Gap (12-20) BUN (9-16) mg/dL Creatinine (0.5-1.4) mg/dL Estim Creat Clear Calc Estimated GFR Random Glucose (60-115) mg/dL Calcium (8.4-10.2) mg/dL Total Bilirubin (0.0-1.0) mg/dL Direct Bilirubin (0.0-0.5) mg/dL AST (5-31) U/L ALT (0-31) U/L Alkaline Phosphatase (39-117) U/L B-Natriuretic Peptide 10 (<100) pg/mL Total Protein (6.5-8.0) g/dL Albumin (3.5-5.0) g/dL Urine Color Yellow Urine Appearance Clear Urine pH 6.5 (5.0-9.0) Ur Specific Jefferson 1.010 (1.005-1.025) Urine Protein Negative (Neg-Trace) mg/dL Urine Glucose (UA) Negative (Negative) mg/dL Urine Ketones Negative (Negative) mg/dL Urine Blood Negative (Negative) Urine Nitrite Negative (Negative) Ur Leukocyte Esterase Negative (Negative) Urine Test NEGATIVE (NEGATIVE) Influenza Type A (PCR) (Negative) Influenza Type B (PCR) (Negative) RSV RNA Qual (PCR) (Negative) SARS-CoV-2 RNA (RT-PCR) (Negative) Independent Interpretation I performed an independent interpretation of an: CT Scan (Abdomen pelvis:1. Nonobstructive 3 mm radiopaque calculi mid pole left kidney. No caliectasis or hydronephrosis seen. Probable small cyst upper pole left kidney. No change from CT abdomen and pelvis 07/13/2022. 2. Moderate constipation without obstruction. ) Radiology Impression Discussion of test interpretation with radiology: I have reviewed the radiologist's reading. Discharge Plan Discharge Clinical Impression: Abdominal pain Patient Disposition: Home, Self-Care Instructions: Abdominal Pain (ED) Prescriptions: No Action fluconazole [Diflucan] 150 mg tablet 150 mg PO Q3D Qty: 2 0RF prednisone 20 mg tablet 20 mg PO DAILY 7 Days Qty: 7 0RF cephalexin 500 mg capsule 500 mg PO Q6H 7 Days Qty: 28 0RF doxycycline hyclate 100 mg tablet 100 mg PO BID 7 Days Qty: 14 0RF naproxen 500 mg tablet 500 mg PO BID 7 Days Qty: 14 0RF tamsulosin 0.4 mg capsule 0.4 mg PO BEDTIME Qty: 7 0RF metronidazole 500 mg tablet 500 mg PO BID 7 Days Qty: 14 0RF Biktarvy 50-200-25 mg tablet 1 tab PO DAILY quetiapine 150 mg tablet extended release 24 hr 150 mg PO QPM sertraline 25 mg tablet 25 mg PO DAILY budesonide-formoterol [Symbicort] 160-4.5 mcg/actuation HFA aerosol inhaler 2 puff inhalation sumatriptan succinate 50 mg tablet 50 mg PO lisinopril 20 mg tablet 20 mg PO DAILY (DME) blood pressure test kit-large Kit See Rx Instructions .ROUTE .MEDSUPPLY Qty: 1 Rx Instructions: As directed varenicline 0.5 mg (11)- 1 mg (42) tablets,dose pack PO DIRECTED cyanocobalamin (vitamin B-12) 1,000 mcg tablet 1,000 mcg PO DAILY sulfamethoxazole-trimethoprim 800-160 mg tablet 1 tab PO DAILY rosuvastatin 20 mg tablet 20 mg PO BEDTIME multivitamin with folic acid [Tab-A-Max] 400 mcg tablet 1 tab PO DAILY atovaquone 750 mg/5 mL suspension 750 mg PO BID bisacodyl [Dulcolax (bisacodyl)] 5 mg tablet,delayed release (DR/EC) 10 mg PO ONCE 1 Days Qty: 2 0RF Rx Instructions: Take 2 tablets by mouth at 12:00pm the day before your procedure. polyethylene glycol 3350 [Miralax] 17 gram/dose powder 238 g PO ONCE 1 Days Qty: 238 0RF Rx Instructions: Take as directed by mouth the day before your procedure. Referrals: Julian,[facility] [Primary Care Provider] -
[2022-08-26 16:13] LABS: MANUAL DIFF FLAG NO
[2022-08-26 16:18] LABS: Basophils Percent Auto 0.4 % (0-2); Eosinophils Absolute Auto 0.1 X10*3/uL (0.0-0.4); Eosinophils Percent Auto 1.2 % (0-4); Hematocrit 39.9 % (37.0-47.0); Hemoglobin 13.6 g/dl (12.0-16.0); Imm Gran Abs Auto 0.05 X10*3/uL (0.00-0.03); Imm Gran Pct Auto 0.7 % (0.0-0.4); Lymphocytes Absolute Auto 2.7 X10*3/uL (1.2-4.9); Mean Corpuscular HGB Conc 34.1 g/dl (31.0-35.0); Mean Corpuscular Hemoglobin 32.2 pg (27.0-33.0); Mean Corpuscular Volume 94.3 fL (80.0-98.0); Mean Platelet Volume 9.1 fL (9.4-12.3); Monocytes Absolute Auto 0.5 X10*3/uL (0.1-1.2); Monocytes Percent Auto 6.3 % (2-11); Neutrophils Absolute Auto 4.3 x10*3/uL (2.0-8.3); Neutrophils Percent Auto 56.4 % (45-73); Platelet Count 154 X10*3/uL (160-400); Red Blood Count 4.23 X10*6/uL (4.20-5.50); Red Cell Distribution Width 12.8 % (11.0-16.0); White Blood Count 7.7 X10*3/uL (4.8-10.8)
[2022-08-26 16:29] LABS: Alanine Aminotransferase 15 U/L (0-31); Albumin Level 3.9 g/dL (3.5-5.0); Alkaline Phosphatase 81 U/L (39-117); Anion Gap 9 (12-20); Aspartate Amino Transferase 19 U/L (5-31); Bilirubin Direct 0.1 mg/dL (0.0-0.5); Bilirubin Total 0.4 mg/dL (0.0-1.0); Blood Urea Nitrogen 9 mg/dL (9-16); Calcium 8.8 mg/dL (8.4-10.2); Carbon Dioxide 24 mmol/L (22-29); Chloride 110 mmol/L (96-108); Creatinine Clr Calc Pharmacy 100.4; Estimated Glomerular Filt Rate > 60; Glucose Random 95 mg/dL (60-115); Potassium 3.9 mmol/L (3.3-5.1); Sodium 139 mmol/L (135-145); Total Protein 6.9 g/dL (6.5-8.0)
[2022-08-26 17:08] LABS: Influenza A PCR NEGATIVE (Negative); Influenza B PCR NEGATIVE (Negative); Resp Syncy Virus RNA Qual PCR NEGATIVE (Negative); SARS COV2 PCR INHOUSE NEGATIVE (Negative)
--- NOTE | 2022-08-26 20:11 | MHC.EDTECH ---
this pct assumed care of pt at 1999 vitals sign taken ,pt watching television .
[2022-08-26 20:17] LABS: Appearance Urine Clear; Color Urine Yellow; Glucose Urine UA Negative (Negative); Leukocyte Esterase Urine Negative (Negative); Nitrite Urine Negative (Negative); PH 6.5 (5.0-9.0); Urine Blood Negative (Negative); Urine Ketones Negative (Negative); Urine Protein Negative (Neg-Trace)
[2022-08-26 20:18] LABS: UPreg QC Valid YES; Urine Pregnancy NEGATIVE (NEGATIVE)
[2022-08-26 20:34] LABS: B Type Natriuretic Peptide 10 pg/mL (<100)
[2022-08-26] MEDS: Morphine Sulfate 2 MG/ML CARTRIDGE 1 MG IVPUSH (20:34)
[2022-08-26] MEDS: 0.9 % Sodium Chloride 1,000 ML 999 ML IV (20:35)
[2022-08-26] MEDS: Morphine Sulfate 2 MG/ML CARTRIDGE IVPUSH (21:54)
== END 2022-08-26 23:46 | disposition home or self-care (01) ==
PROVIDERS: Physician Assistant Medical; Emergency Provider Emergency Medicine
DX: R10.9 Unspecified abdominal pain (principal); N20.0 Calculus of kidney; Z20.822 Contact with and (suspected) exposure to COVID-19; Z20.828 Contact with and (suspected) exposure to other viral communicable diseases; I10 Essential (primary) hypertension; B20 Human immunodeficiency virus [HIV] disease; F17.210 Nicotine dependence, cigarettes, uncomplicated; Z79.899 Other long term (current) drug therapy
CPT/HCPCS: 0241U; 36415; 74176; 80048; 80076; 81003; 81025; 83880; 85025; 96374; 96376; 99284; 99285; J2270

== ENCOUNTER 2022-09-01 15:29 | Outpatient (REF) | payer MEDICAID, SELFPAY ==
--- NOTE | ~2022-09-01 | XR_ITS ---
EXAMINATION: XR CHEST CLINICAL INFORMATION: Shortness of breath for one month COMPARISON: February 23, 2022 TECHNIQUE: 2 views of the chest were obtained. FINDINGS: No significant abnormality is noted involving the heart, lungs, mediastinum, bony thorax or soft tissues. XR/XR chest 2V IMPRESSION: No acute disease.
== END 2022-09-01 15:30 | disposition home or self-care (01) ==
LOC: HO.HHCX 15:29
PROVIDERS: Visit Provider Registered Nurse
DX: R06.02 Shortness of breath (principal); R60.1 Generalized edema
CPT/HCPCS: 71046

== ENCOUNTER 2022-09-17 13:24 | Outpatient (REF) | payer MEDICAID, SELFPAY ==
[2022-09-17 14:58] LABS: MANUAL DIFF FLAG NO
[2022-09-17 16:08] LABS: Basophils Percent Auto 0.3 % (0-2); Eosinophils Absolute Auto 0.1 X10*3/uL (0.0-0.4); Eosinophils Percent Auto 0.8 % (0-4); Hemoglobin 13.5 g/dl (12.0-16.0); Imm Gran Abs Auto 0.06 X10*3/uL (0.00-0.03); Imm Gran Pct Auto 0.7 % (0.0-0.4); Lymphocytes Absolute Auto 2.7 X10*3/uL (1.2-4.9); Lymphocytes Percent Auto 31.6 % (20-40); Mean Corpuscular HGB Conc 34.6 g/dl (31.0-35.0); Mean Corpuscular Hemoglobin 32.3 pg (27.0-33.0); Mean Corpuscular Volume 93.3 fL (80.0-98.0); Mean Platelet Volume 9.2 fL (9.4-12.3); Monocytes Absolute Auto 0.5 X10*3/uL (0.1-1.2); Monocytes Percent Auto 5.7 % (2-11); Neutrophils Absolute Auto 5.2 x10*3/uL (2.0-8.3); Neutrophils Percent Auto 60.9 % (45-73); Platelet Count 195 X10*3/uL (160-400); Red Blood Count 4.18 X10*6/uL (4.20-5.50); Red Cell Distribution Width 12.1 % (11.0-16.0); White Blood Count 8.6 X10*3/uL (4.8-10.8)
== END 2022-09-17 13:25 | disposition home or self-care (01) ==
LOC: HO.LAB 13:24
PROVIDERS: Visit Provider Internal Medicine Pulmonary Disease
DX: J45.909 Unspecified asthma, uncomplicated (principal); R06.09 Other forms of dyspnea; G47.33 Obstructive sleep apnea (adult) (pediatric); Z91.09 Other allergy status, other than to drugs and biological substances; K21.9 Gastro-esophageal reflux disease without esophagitis
CPT/HCPCS: 36415; 82785; 85025; 86003; 99202

== ENCOUNTER 2022-09-17 13:24 | Outpatient (AMB) | payer MEDICAID, SELFPAY ==
[2022-09-17 13:35] VITALS: BP 110/62; PULSE 98; BMI 35.6
--- NOTE | 2022-09-17 13:35 | A.OFFVIS_ITS ---
Intake Vital Signs 09/17/22 13:35 Height 4 ft 11 in Weight 176 lb 5.917 oz BMI 35.6 BP 110/62 Blood Pressure Location Rt brachial Position Sitting Pulse 98 Pulse Source Pulse Oximeter Oxygen Delivery Method Room Air Intake Visit Reasons: Asthma Intake Note: Pt was last seen 02/23/22 for symptoms of circulatory and respiratory systems. Last chest x-ray 09/01/22. Pt reports coughing, wheezing, and short of breath. She has been smoking for 46 years. No previous pulmonary hx. Did not complete breathing test. Allergies hydrocodone [From VICODIN] Allergy (Intermediate, Verified 09/17/22 13:42) RASH, SWELLING acetaminophen [Vicodin] Allergy (Unknown, Verified 09/17/22 13:42) Unknown HPI Asthma HPI Details 46-year-old lady, active 50 pack-year smoker, also smokes marijuana since 10 years of age, HIV on HAART, with clinical history consistent with asthma referred for evaluation of her pulmonary concerns. Patient states that she has been experiencing significant wheezing with dyspnea on exertion and nonproductive cough, particularly at night. She does complain of acid reflux. She denies exposure to industrial dusts. Patient does have family history of asthma in her mother. Patient does have a dog and a cat. She denies seasonal allergies. FOR[facility]LY [facility], [facility] Medical History HIV (human immunodeficiency virus infection) Surgical History History of esophagogastroduodenoscopy (EGD) Family History Unknown No problems noted. Social History (Updated 09/17/22 @ 13:40 by Iliana Hunter CMA) Household Members Other:: Lives with her mother, 4 kids live in [place] Alcohol intake: former Patient Tobacco Use Status: Current everyday Tobacco user Cigarette Packs Per Day: 3 Years Smoked: 46 Current occupational status: disabled Review of Systems Const Denies daytime sleepiness, Denies excessive sweating, Denies fatigue, Denies fever(s), Denies lethargy, Denies malaise, Denies night sweats, Denies snoring and Denies weight loss Eyes Denies blurry vision and Denies itchy eyes ENT Denies nasal congestion, Denies post nasal drip, Denies sinus pain, Denies sinus pressure and Denies other ( Thrush) Card Denies chest pain, Reports pedal edema, Denies dyspnea, Reports dyspnea on exertion, Denies orthopnea and Denies paroxysmal nocturnal dyspnea Resp Denies cough, Denies hemoptysis, Denies excessive phlegm production, Denies dyspnea, Reports dyspnea on exertion, Denies snoring and Reports wheezing GI Denies abdominal pain and Reports heartburn Musc Denies myalgias, Denies arthralgias and Denies joint swelling Skin/Breast Denies rash Neuro Denies memory loss and Denies seizure-like activity Psych Denies abnormal sleep pattern, Denies anxiety and Denies memory loss Endo Denies excessive sweating, Denies fatigue and Denies heat intolerance Itz/Lymph Denies easy bruising Aller/Immun Denies itchy eyes, Denies seasonal rhinorrhea and Reports wheezing Physical Exam Vital Signs: Last Vital Signs Pulse 98 09/17/22 13:35 BP 110/62 09/17/22 13:35 Oxygen Delivery Method Room Air 09/17/22 13:35 BMI result Body Mass Index 35.6 Const General: no acute distress and alert Nutritional Appearance: obese Orientation/consciousness: Other orientation findings ( oriented) HEENT Head: Yes atraumatic Eyes General: appearance normal, both eyes and all related structures Sclerae: sclerae normal EOM: EOMs intact bilaterally Neck Neck: Yes supple Lymphatic: no lymphadenopathy noted Resp Effort & Inspection: normal respiratory effort and no use of accessory muscles Auscultation: clear to auscultation bilaterally Cardio Rate: regular rate Rhythm: regular rhythm Heart sounds: no gallops, no murmurs and no rubs Skin General skin exam: other ( warm) Extrem General: No clubbing, No cyanosis and No edema Assessment & Plan Assessment & Plan (1) SANDOVAL (dyspnea on exertion): Code(s): R06.09 - Other forms of dyspnea Plan: Likely multifactorial with contribution from underlying pulmonary, cardiac, and possible obesity/deconditioning etiologies. Will obtain 2D echocardiogram to evaluate cardiac component. (2) MAURICE (obstructive sleep apnea): Code(s): G47.33 - Obstructive sleep apnea (adult) (pediatric) Plan: Likely underlying obstructive sleep apnea. Unrestful sleep, daytime somnolence. [place] Sleepiness Scale score of 15. Will obtain home sleep study. (3) Asthma: Code(s): J45.909 - Unspecified asthma, uncomplicated Plan: Likely underlying asthma or asthma/COPD overlap syndrome suboptimally controlled on Symbicort. Will switch to Trelegy. Continue albuterol MDI. Will obtain full PFT. Patient previously tried and was unable to complete pulmonary function test. (4) Environmental allergies: Code(s): Z91.09 - Other allergy status, other than to drugs and biological substances Plan: Will obtain IgE level, CBC with differential, and RAST for further evaluation. (5) GERD (gastroesophageal reflux disease): Code(s): K21.9 - Gastro-esophageal reflux disease without esophagitis Plan: Appears to have significant GERD component will start on b.i.d. omeprazole 40 mg. Orders: Orders Rast Allergen Today J45.909 - Unspecified asthma, uncomplicated Complete Blood Count Auto Diff Today J45.909 - Unspecified asthma, uncomplicated PFT pulmonary function test Today J45.909 - Unspecified asthma, uncomplicated CA echo transthorac w con Today R06.09 - Other forms of dyspnea RT home sleep study Today G47.33 - Obstructive sleep apnea (adult) (pediatric) Medications: New Trelegy Ellipta 100-62.5-25 mcg ([id number]) 1 inh inhalation DAILY 30 days 1 ea 6RF NS omeprazole 40 mg PO BID 60 caps 6RF 30 days G47.33 - Obstructive sleep apnea (adult) (pediatric) Coding Level of Care Code New Pt Level 5 (79832) Diagnoses SANDOVAL (dyspnea on exertion) R06.09 MAURICE (obstructive sleep apnea) G47.33 Asthma J45.909 Environmental allergies Z91.09 GERD (gastroesophageal reflux disease) K21.9
== END 2022-09-17 14:19 | disposition home or self-care (01) ==
PROVIDERS: Visit Provider Internal Medicine Pulmonary Disease
DX: R06.09 Other forms of dyspnea (principal); G47.33 Obstructive sleep apnea (adult) (pediatric); J45.909 Unspecified asthma, uncomplicated; Z91.09 Other allergy status, other than to drugs and biological substances; K21.9 Gastro-esophageal reflux disease without esophagitis
CPT/HCPCS: 99204

== ENCOUNTER → 2022-09-24 13:15 | Outpatient (REF) | payer MEDICAID, SELFPAY ==
--- NOTE | 2022-09-24 13:17 | CA_ITS ---
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 There is mildly increased left ventricular wall thickness. The visually estimated ejection fraction is between 60-65%. There is no evidence of regional wall motion abnormalities. Diastolic function is normal for age. - Normal right ventricular cavity size and systolic function. - There is mild dilatation of the ascending aorta measuring 3.50 cm. Findings Left Ventricle Normal left ventricular size and systolic function. There is mildly increased left ventricular wall thickness. The visually estimated ejection fraction is between 60-65%. There is no evidence of regional wall motion abnormalities. Diastolic function is normal for age. Right Ventricle Normal right ventricular cavity size and systolic function. Atria The left atrium is normal in size. Aortic Valve Normal aortic valve structure and function. There is no aortic valve stenosis. There is trace (trivial) aortic valve regurgitation. Mitral Valve Normal mitral valve structure and function. There is no mitral valve regurgitation. There is no mitral valve stenosis. Pulmonic Valve Normal pulmonic valve structure and function. There is no pulmonic valve regurgitation. Tricuspid Valve Normal tricuspid valve structure and function. Normal right atrial pressure. There is no evidence of pulmonary hypertension. Great Vessels There is mild dilatation of the ascending aorta measuring 3.50 cm. The visualized portions of the pulmonary artery and branches are normal. Venous The inferior vena cava is normal in size and collapses greater than 50% with inspiration. Pericardium/Pleural There is no evidence of pericardial effusion. Prior Study Comparison No prior study available for comparison. Measurements 2D Linear Measurements IVSd: 1.30 0.6-0.9/0.6-1.0 cm LVIDd: 4.10 3.9-5.3/4.2-5.9 cm LVIDd Index: 2.37 2.4-3.2/2.2-3.1 cm/m2 LVIDs: 2.70 2.0-3.6 cm LVPWd: 0.90 0.7-1.1 cm LA Diam: 3.20 2.7-3.8/3.0-4.0 cm LAIDs Index: 1.85 1.5-2.3 cm/m2 LV Mass: 188.37 67-162/88-224 g LV Mass Index: 108.88 43-95/49-115 g/m2 LVOT Diam: 2.00 3.0+(-)1.3 cm 2D Systolic Function EF 4C: 63.50 >55% EF 2C: 60.00 >55% EF BiP: 63.00 >55% Mitral Valve MV Pk E: 0.53 MV PK A: 0.65 MV Decel Time: 114.00 E/A: 0.80 E'Lateral: 11.70 E'Medial: 9.68 E/E' Med: 5.50 E/E' Lat: 4.50 PHT: 33.00 MVA PHT: 6.67 Decel [place]: 4.67 Aortic Valve AoV Pk Wood: 1.39 AoV Mn Wood: 0.94 AoV VTI: 0.22 AoV Pk Grad: 8.00 Aov Mn Grad: 4.00 TI Cont.VTI: 2.42 LVOT LVOT Pk Wood: 0.88 LVOT Mn Wood: 0.63 LVOT VTI: 0.17 LVOT Pk Grad: 3.00 LVOT Mn Grad: 2.00 LVOT Diam: 2.00 LVOT Area: 3.14 Diastolic Function MV Pk E: 0.53 MV Pk A: 0.65 E/A: 0.80 E'Medial: 9.68 E/E' Med: 5.50 E' Laterial: 11.70 E/E' Lat: 4.50 Right Ventricle TAPSE (mm): 19.10 TVS' Wood: 10.10 Tricuspid Valve RA Press: 3.00 Great Vessels Aorta Sinus of Valsalva: 3.00 2.0-3.[address] [place]: 2.10 1.7-3.4 cm Ao Asc: 3.50 2.1-3.4 cm Updated in Other Vendor System with Status of Final Derick Swan MD electronically signed on 09/25/2022 9:19:00 PM with status of Final
== END ==
LOC: HO.CARD 13:15
PROVIDERS: PCP Registered Nurse; Visit Provider Registered Nurse
DX: R60.1 Generalized edema (principal)
CPT/HCPCS: 93306

== ENCOUNTER → 2022-09-24 13:17 | Outpatient (BNV) | payer MEDICAID, SELFPAY | PROVIDERS: PCP Registered Nurse; Visit Provider Internal Medicine Cardiovascular Disease | DX: R06.09 Other forms of dyspnea (principal) | CPT/HCPCS: 93306 ==

== ENCOUNTER → 2022-10-15 13:04 | Outpatient (BNVA) | payer MEDICAID, SELFPAY | PROVIDERS: PCP Registered Nurse; Visit Provider Urology ==

== ENCOUNTER → 2022-10-25 10:44 | Outpatient (REF) | payer MEDICAID, SELFPAY | LOC: HO.SL 10:44 | PROVIDERS: PCP Registered Nurse; Visit Provider Internal Medicine Pulmonary Disease | DX: G47.33 Obstructive sleep apnea (adult) (pediatric) (principal) | CPT/HCPCS: 95806 ==

== ENCOUNTER → 2022-10-25 10:50 | Outpatient (BNV) | payer MEDICAID, SELFPAY | PROVIDERS: PCP Registered Nurse; Visit Provider Internal Medicine | DX: R06.83 Snoring (principal) | CPT/HCPCS: 95806 ==

== ENCOUNTER 2022-10-27 15:19 | Outpatient (AMB) | payer MEDICAID, SELFPAY ==
--- NOTE | 2022-10-27 11:14 | A.OFFVIS_ITS ---
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-Renal Calculi Intake Note: NEW Patient presents today to established treatment for Renal Calculi: Meds- None Allergies to Antibiotic- No Known Allergies Blood Thinner- None Safety Deposit Boxes Custodian Required: No Accompanied by: Self / Same As Patient Allergies hydrocodone [From VICODIN] Allergy (Intermediate, Verified 11/02/22 13:43) RASH, SWELLING acetaminophen [Vicodin] Allergy (Unknown, Verified 11/02/22 13:43) Unknown Medication List - Last Reconciled 10/27/22 by Tracey Allan MD atovaquone 750 mg PO BID yoibkpebi-dfzpcsvo-uuoueon ala 50-200-25 mg (Biktarvy) 1 tab PO DAILY blood pressure test kit-large As directed chlorhexidine gluconate 0.12% 15 mL PO chlorthalidone 25 mg PO QAM cyanocobalamin (vitamin B-12) 1,000 mcg PO DAILY fluticasone furoate-vilanterol 200-25 mcg/dose (Breo Ellipta) 1 inh inhalation DAILY 30 days ibuprofen 800 mg PO TID PRN multivitamin with folic acid 400 mcg (Tab-A-Max) 1 tab PO DAILY omeprazole 40 mg PO BID 30 days quetiapine 400 mg PO BEDTIME rosuvastatin 20 mg PO BEDTIME sumatriptan succinate 50 mg PO umeclidinium 62.5 mcg/actuation (Incruse Ellipta) 1 inh inhalation DAILY 30 days HPI HPI Comments History of Present Illness Details Ishmael is a 47-year-old female who presents today to the office to establish as a new patient for an evaluation of renal calculi. 10/27/2022? 47-year-old female a past history of HIV (viral load undetectable), Hypertension, and Asthma presented to the emergency 08/26/22 for back pain. Ishmael is present today for an evaluation of renal calculi. I reviewed the CT scan of the abdomen/pelvis without IV contrast results from 08/26/2022 revealed nonobstructive 3 mm radiopaque calculi mid pole left kidney.? No caliectasis or hydronephrosis seen. Probable small cyst upper pole left kidney. No change from CT abdomen and pelvis 07/13/2022. Moderate constipation without obstruction. I reviewed the urine culture results from 07/13/2022 which came back 50,000 to 100,000 cfu/ml mixed bacterial khurram characteristic of urogenital contamination. Patient has a history of kidney stones. She denies any kidney procedure done, and she has not passed any kidney stones. She reports intermittent left kidney pain which is getting worse. She reports mild burning with urination. Diet sheet for renal calculi prevention was provided to the patient. Discussed to reduce sodium intake. Discussed to consume adequate amount of water. Discussed Low oxalate diet---green leafy vegetable, nuts, and tea in moderation as they are rich in oxalate. Plan: 24-hour urine collection was ordered. Renal US was ordered. Diet sheet for renal calculi prevention was provided to the patient. Discussed to reduce sodium intake. Discussed to consume adequate amount of water. Discussed Low oxalate diet---green leafy vegetable, nuts, and tea in moderation as they are rich in oxalate. Follow up in 2 months to discuss the results. [facility] Medical History HIV (human immunodeficiency virus infection) Surgical History History of esophagogastroduodenoscopy (EGD) History of partial hysterectomy Family History Unknown No problems noted. Social History Household Members Other:: Lives with her mother, 4 kids live in [place] Alcohol intake: former Patient Tobacco Use Status: Current everyday Tobacco user Cigarette Packs Per Day: 3 Years Smoked: 46 Current occupational status: disabled Review of Systems Const All systems reviewed & are unremarkable except as noted in HPI and below Reports no additional complaints Eyes Reports no additional complaints ENT Reports no additional complaints Card Denies dyspnea Resp Denies cough and Denies dyspnea GI Reports no additional complaints Reports no additional complaints Musc Reports no additional complaints Skin/Breast Denies rash and Denies unusual bruising Neuro Reports no additional complaints Psych Reports no additional complaints Endo Reports no additional complaints Itz/Lymph Reports no additional complaints Aller/Immun Reports no additional complaints Physical Exam Const General: cooperative, healthy appearing and no acute distress Orientation/consciousness: patient oriented x3 HEENT Head: Yes normal to inspection, Yes normocephalic and Yes atraumatic Eyes Conjunctivae: conjunctivae normal Neck Neck: Yes normal visual inspection and Yes trachea midline Chest Chest palpation & inspection: normal inspection of the chest Resp Effort & Inspection: normal respiratory effort Cardio Rate: regular rate GI Inspection: Yes normal to inspection Skin General skin exam: no rashes or lesions noted Neuro General: patient oriented x3 Extrem General: No edema Psych Appearance: grossly normal Results AMB Urinalysis, Automated UA Leukoctes 0 Yamil/uL Last Edit by Madeline Kulkarni [facility] on 10/27/22 15:46 UA Nitrite Negative Last Edit by Madeline Kulkarni [facility] on 10/27/22 15:46 UA Urobilinogen 0.2 mg/dL Last Edit by Madeline Kulkarni [facility] on 10/27/22 15:4 6 UA Protein 0 mg/dL Last Edit by Madeline Kulkarni [facility] on 10/27/22 15:46 UA pH 6.0 Last Edit by Madeline Kulkarni [facility] on 10/27/22 15:46 UA Blood 0 Haroon/uL Last Edit by Madeline Kulkarni [facility] on 10/27/22 15:46 UA Specific [place] 1.015 Last Edit by Madeline Kulkarni [facility] on 10/27/22 15: 46 UA Ketone Negative Last Edit by Madeline Kulkarni [facility] on 10/27/22 15:46 UA Bilirubin 0 mg/dL Last Edit by Madeline Kulkarni [facility] on 10/27/22 15:46 UA Glucose 0 mg/dL Last Edit by Madeline Kulkarni [facility] on 10/27/22 15:46 Results Reviewed Results Reviewed: Laboratory Last Values Urine pH (Auto) 6.0 10/27/22 15:42 Specific [place] (Auto) 1.015 10/27/22 15:42 Urine Protein (Auto) 0 mg/dL 10/27/22 15:42 Glucose (UA)(Auto) 0 mg/dL 10/27/22 15:42 Urine Ketones (Auto) Negative 10/27/22 15:42 Urine Blood (Auto) 0 Haroon/uL 10/27/22 15:42 Urine Nitrite (Auto) Negative 10/27/22 15:42 Urine Bilirubin (Auto) 0 mg/dL 10/27/22 15:42 Urine Urobilinogen (Auto) 0.2 mg/dL 10/27/22 15:42 Leukocyte Esterase (Auto) 0 Yamil/uL 10/27/22 15:42 Ordered:? Urine Culture? Procedure?Result?Verified?Site ? Urine Culture? Final?07/14/22-1040 ? Report Result?50,000 to 100,000 cfu/ml ? Mixed bacterial khurram characteristic of ? urogenital contamination. Date of Service: 08/26/22 EXAMINATION: CT ABDOMEN AND PELVIS WITHOUT CONTRAST? CLINICAL INFORMATION: Left-sided abdominal pain. History of obstructing ureter stone COMPARISON: None available. FINDINGS: LUNG BASES: There is minimal left basilar atelectasis. Heart size is normal.? LIVER, GALLBLADDER, AND BILIARY TREE: The liver is normal in size, shape, and attenuation. No focal hepatic lesion or biliary ductal dilatation is present. The gallbladder has been surgically removed.? PANCREAS: Unremarkable.? SPLEEN: Unremarkable.? ADRENAL GLANDS: Unremarkable.? KIDNEYS AND URETERS: The kidneys are normal in size, shape, and attenuation. There is a nonobstructive 3 mm radiopaque calculi mid pole left kidney. Right kidney is unremarkable. No caliectasis or hydronephrosis seen. A 7 mm hypodensity seen upper pole left kidney probable small cyst. BLADDER: Unremarkable.? GASTROINTESTINAL TRACT: There is a large amount of stool and gas seen in the colon without any significant distention. The small bowel loops are normal caliber. Appendix is normal caliber with? intraluminal hyperdense material likely appendicolith. There is no fat stranding. ABDOMINAL WALL: No significant hernia is appreciated.? LYMPH NODES: No abnormal retroperitoneal lymph nodes. VASCULAR: There is atherosclerotic calcification of abdominal aorta and common iliac vessels PELVIC VISCERA: There are several phleboliths in the pelvis. The uterus is anteverted and unremarkable. No adnexal mass or free fluid seen.? OSSEOUS STRUCTURES: No aggressive lytic or sclerotic process seen.? IMPRESSION: 1.? Nonobstructive 3 mm radiopaque calculi mid pole left kidney.? No caliectasis or hydronephrosis seen. Probable small cyst upper pole left kidney. No change from CT abdomen and pelvis 07/13/2022. 2.? Moderate constipation without obstruction. Assessment & Plan Assessment & Plan (1) Kidney stone on left side: Code(s): N20.0 - Calculus of kidney Orders: Orders AMB Urinalysis Automated 10/27/22 Z13.9 - Encounter for screening, unspecified US renal BI 10/27/22 N20.0 - Calculus of kidney Patient Instructions: The patient had an opportunity to ask questions regarding treatment plan. All questions were answered. Imaging, Laboratory studies and physical exam results were discussed and reviewed in detail. No major barriers to understanding were identified. The patient expressed understanding and agreement with the above treatment plan.? ? ? The patient is aware they should contact our office by phone for worsening of their current condition or the appearance of new symptoms. Compliance is encouraged with any medications and followup testing that is ordered.? ? ? It is a privilege to be allowed the opportunity to participate in the urologic care of your patient. If you have any questions or concerns regarding treatment for the above conditions please do not hesitate to contact me. The office telephone contact is [phone].? ? ? This note is constructed in part using voice recognition software. While every effort has been made to ensure accuracy accounting advisory services manager errors may have been included.? ? ? Yours sincerely,? ? ? Tracey Allan MD? ? Coding Level of Care Code New Pt Level 4 (91854) Diagnoses Kidney stone on left side N20.0
== END 2022-10-27 16:03 | disposition home or self-care (01) ==
PROVIDERS: PCP Registered Nurse; Visit Provider Urology
DX: N20.0 Calculus of kidney (principal)
CPT/HCPCS: 99204

== ENCOUNTER → 2022-10-27 15:19 | Outpatient (BNVA) | payer MEDICAID, SELFPAY | PROVIDERS: PCP Registered Nurse; Visit Provider Urology | DX: N20.0 Calculus of kidney (principal) | CPT/HCPCS: 81003; 99202 ==

== ENCOUNTER 2022-11-02 13:35 | Outpatient (AMB) | payer MEDICAID, SELFPAY ==
[2022-11-02 13:38] VITALS: BP 107/72; PULSE 127; O2SAT 99; BMI 37.0
--- NOTE | 2022-11-02 13:38 | MHC.OFFVIS ---
Intake Vital Signs 11/02/22 13:38 Height 4 ft 11 in Weight 182 lb 15.739 oz BMI 37.0 BP 107/72 Blood Pressure Location Rt brachial Position Sitting Pulse 127 H Pulse Source Doppler Pulse Oximetry (%) 99 Oxygen Delivery Method Room Air Intake Visit Reasons: Asthma Allergies hydrocodone [From VICODIN] Allergy (Intermediate, Verified 11/02/22 13:43) RASH, SWELLING acetaminophen [Vicodin] Allergy (Unknown, Verified 11/02/22 13:43) Unknown HPI Asthma HPI Details 47-year-old lady, active 50 pack-year smoker, also smokes marijuana since 10 years of age, HIV on HAART, followed for asthma, though patient is unable to tolerate pulmonary function testing. After the last office visit patient was started on Breo, Incruse, and albuterol MDI with significant improvement in her symptom control. She denies any acute exacerbations. She did complete her 2D echocardiogram, sleep study, and immunologic testing that are essentially normal. COUNTS INCLUDE 234 BEDS AT THE [facility] Medical History HIV (human immunodeficiency virus infection) Surgical History History of esophagogastroduodenoscopy (EGD) History of partial hysterectomy Family History Unknown No problems noted. Social History Household Members Other:: Lives with her mother, 4 kids live in [place] Alcohol intake: former Patient Tobacco Use Status: Current everyday Tobacco user Cigarette Packs Per Day: 3 Years Smoked: 47 Current occupational status: disabled Review of Systems Const Denies daytime sleepiness, Denies excessive sweating, Denies fatigue, Denies fever(s), Denies lethargy, Denies malaise, Denies night sweats, Denies snoring and Denies weight loss Eyes Denies blurry vision and Denies itchy eyes ENT Denies nasal congestion, Denies post nasal drip, Denies sinus pain, Denies sinus pressure and Denies other ( Thrush) Card Denies chest pain, Denies pedal edema, Denies dyspnea, Denies orthopnea and Denies paroxysmal nocturnal dyspnea Resp Denies cough, Denies hemoptysis, Denies excessive phlegm production, Denies dyspnea, Denies snoring and Denies wheezing GI Denies abdominal pain and Denies heartburn Musc Denies myalgias, Denies arthralgias and Denies joint swelling Skin/Breast Denies rash Neuro Denies memory loss and Denies seizure-like activity Psych Denies abnormal sleep pattern, Denies anxiety and Denies memory loss Endo Denies excessive sweating, Denies fatigue and Denies heat intolerance Itz/Lymph Denies easy bruising Aller/Immun Denies itchy eyes, Denies seasonal rhinorrhea and Denies wheezing Physical Exam Vital Signs: Last Vital Signs Pulse 127 H 11/02/22 13:38 BP 107/72 11/02/22 13:38 Pulse Ox 99 11/02/22 13:38 Oxygen Delivery Method Room Air 11/02/22 13:38 BMI result Body Mass Index 37.0 Const General: no acute distress and alert Nutritional Appearance: obese Orientation/consciousness: Other orientation findings ( oriented) HEENT Head: Yes atraumatic Eyes General: appearance normal, both eyes and all related structures Sclerae: sclerae normal EOM: EOMs intact bilaterally Neck Neck: Yes supple Lymphatic: no lymphadenopathy noted Resp Effort & Inspection: normal respiratory effort and no use of accessory muscles Auscultation: clear to auscultation bilaterally Cardio Rate: regular rate Rhythm: regular rhythm Heart sounds: no gallops, no murmurs and no rubs Skin General skin exam: other ( warm) Extrem General: No clubbing, No cyanosis and No edema Assessment & Plan Assessment & Plan (1) Asthma: Code(s): J45.909 - Unspecified asthma, uncomplicated Plan: Well controlled on current regimen of Incruse, Breo, and albuterol MDI. Continue current regimen. Coding Level of Care Code Est Pt Level 3 (15284) Diagnoses Asthma J45.909
== END 2022-11-02 13:58 | disposition home or self-care (01) ==
PROVIDERS: Visit Provider Internal Medicine Pulmonary Disease
DX: J45.909 Unspecified asthma, uncomplicated (principal)
CPT/HCPCS: 99213

== ENCOUNTER → 2022-11-02 13:35 | Outpatient (BNVA) | payer MEDICAID, SELFPAY | PROVIDERS: Visit Provider Internal Medicine Pulmonary Disease | DX: J45.909 Unspecified asthma, uncomplicated (principal); F17.210 Nicotine dependence, cigarettes, uncomplicated; Z79.899 Other long term (current) drug therapy | CPT/HCPCS: 99212 ==

== ENCOUNTER 2023-01-04 13:26 | Day surgery (SDC) | payer MEDICAID, SELFPAY ==
[2023-01-04 13:43] VITALS: BMI 35.9
[2023-01-04 13:58] VITALS: BP 150/80; PULSE 102; RESP 20; TEMP 36.3; O2SAT 99
[2023-01-04] MEDS: Lactated Ringers 1,000 ML 100 ML IVCONT (14:02)
--- NOTE | 2023-01-04 14:30 | HO.ANESPROP2 ---
Documented by User: Fabienne Mckenzie NP 01/03/23 11:44 HPI - Anesthesia Eval Consult details Narrative: 47yo F for Colonoscopy PMFSH Active Problems Active Problems: All Active Problems (Updated 10/27/22 @ 15:23 by Tracey Allan MD) Kidney stone on left side (Acute) GERD (gastroesophageal reflux disease) (Acute) Environmental allergies (Acute) MAURICE (obstructive sleep apnea) (Acute) SANDOVAL (dyspnea on exertion) (Acute) HIV (human immunodeficiency virus infection) (Acute) Asthma (Acute) Encounter for screening colonoscopy (Acute) Past Medical History Medical History HIV (human immunodeficiency virus infection) Family History Family History Unknown No problems noted. Surgical History Surgical History History of esophagogastroduodenoscopy (EGD) History of partial hysterectomy Social History Social History Household Members Other:: Lives with her mother, 4 kids live in [place] Alcohol intake: former Patient Tobacco Use Status: Current everyday Tobacco user Cigarette Packs Per Day: 2 Cigarettes Per Day: 40.0 Years Smoked: 47 Use of substances other than those prescribed or required for medical reasons: No Are you DNR?: No Advance Directives: No Advance Directives Information Provided: Yes Patient : No (Partial hysterectomy) Current occupational status: disabled Meds Allergies Allergy/AdvReac Type Severity Reaction Status Date / Time hydrocodone [From VICODIN] Allergy Intermediate RASH, Verified 11/02/22 13:43 SWELLING acetaminophen [Vicodin] Allergy Unknown Unknown Verified 11/02/22 13:43 Home Medications Medication Instructions Recorded Confirmed Last Taken Type atovaquone 750 mg/5 mL oral 750 mg PO BID 02/18/22 10/27/22 Unknown History suspension bictegravir 50 mg-emtricitabine 1 tab PO DAILY 02/18/22 10/27/22 Unknown History 200 mg-tenofovir alafenam 25 mg tablet (Biktarvy) blood pressure test kit-large #1 ea 02/18/22 10/27/22 Unknown History cyanocobalamin (vitamin B-12) 1,000 mcg PO DAILY 02/18/22 10/27/22 Unknown History 1,000 mcg tablet multivitamin with folic acid 400 1 tab PO DAILY 02/18/22 10/27/22 Unknown History mcg tablet (Tab-A-Max) rosuvastatin 20 mg tablet 20 mg PO BEDTIME 02/18/22 10/27/22 Unknown History sumatriptan succinate 50 mg tablet 50 mg PO migraine 02/18/22 10/27/22 Unknown History chlorhexidine gluconate 0.12 % 15 ml PO 09/17/22 10/27/22 Unknown History mouthwash chlorthalidone 25 mg tablet 25 mg PO QAM 09/17/22 10/27/22 Unknown History ibuprofen 800 mg tablet 800 mg PO TID PRN pain 09/17/22 10/27/22 Unknown History quetiapine 400 mg tablet 400 mg PO BEDTIME 09/17/22 10/27/22 Unknown History olmesartan 20 mg tablet 20 mg PO DAILY 01/04/23 01/04/23 01/04/23 07:00 History Exam Exam Date and Time: January 03, 2023 1142 Pertinent Lab Results Pertinent Lab Results: Laboratory Tests 08/26/22 09/17/22 16:08 14:56 WBC 8.6 Hgb 13.5 Hct 39.0 Plt Count 195 D Sodium 139 Potassium 3.9 Chloride 110 H Carbon Dioxide 24 BUN 9 Creatinine 0.65 Narrative Narrative: ECHO 09/2022 Conclusions: - Normal left ventricular size and systolic function. There is mildly increased left ventricular wall thickness. The visually estimated ejection fraction is between 60-65%. There is no evidence of regional wall motion abnormalities. Diastolic function is normal for age. - Normal right ventricular cavity size and systolic function. - There is mild dilatation of the ascending aorta measuring 3.50 cm. Assessment and Plan Assessment Anesthesia Assessment: Chart Reviewed Documented by User: Letty Britt DO 01/04/23 14:34 PMFSH Past Medical History Medical History HIV (human immunodeficiency virus infection) Family History Family History Unknown No problems noted. Surgical History Surgical History History of esophagogastroduodenoscopy (EGD) History of partial hysterectomy History of Problems with Anesthesia: No Social History Social History Household Members Other:: Lives with her mother, 4 kids live in [place] Alcohol intake: former Patient Tobacco Use Status: Current everyday Tobacco user Cigarette Packs Per Day: 2 Cigarettes Per Day: 40.0 Years Smoked: 47 Use of substances other than those prescribed or required for medical reasons: No Are you DNR?: No Advance Directives: No Advance Directives Information Provided: Yes Patient : No (Partial hysterectomy) Current occupational status: disabled Meds Allergies Allergy/AdvReac Type Severity Reaction Status Date / Time hydrocodone [From VICODIN] Allergy Intermediate RASH, Verified 11/02/22 13:43 SWELLING acetaminophen [Vicodin] Allergy Unknown Unknown Verified 11/02/22 13:43 Home Medications Medication Instructions Recorded Confirmed Last Taken Type atovaquone 750 mg/5 mL oral 750 mg PO BID 02/18/22 10/27/22 Unknown History suspension bictegravir 50 mg-emtricitabine 1 tab PO DAILY 02/18/22 10/27/22 Unknown History 200 mg-tenofovir alafenam 25 mg tablet (Biktarvy) blood pressure test kit-large #1 ea 02/18/22 10/27/22 Unknown History cyanocobalamin (vitamin B-12) 1,000 mcg PO DAILY 02/18/22 10/27/22 Unknown History 1,000 mcg tablet multivitamin with folic acid 400 1 tab PO DAILY 02/18/22 10/27/22 Unknown History mcg tablet (Tab-A-Max) rosuvastatin 20 mg tablet 20 mg PO BEDTIME 02/18/22 10/27/22 Unknown History sumatriptan succinate 50 mg tablet 50 mg PO migraine 02/18/22 10/27/22 Unknown History chlorhexidine gluconate 0.12 % 15 ml PO 09/17/22 10/27/22 Unknown History mouthwash chlorthalidone 25 mg tablet 25 mg PO QAM 09/17/22 10/27/22 Unknown History ibuprofen 800 mg tablet 800 mg PO TID PRN pain 09/17/22 10/27/22 Unknown History quetiapine 400 mg tablet 400 mg PO BEDTIME 09/17/22 10/27/22 Unknown History olmesartan 20 mg tablet 20 mg PO DAILY 01/04/23 01/04/23 01/04/23 07:00 History Exam Exam Date and Time: January 04, 2023 1432 Height,Weight and Vital Signs: Vital Signs Temperature 97.3 F 01/04/23 13:58 Pulse Rate 102 H 01/04/23 13:58 Respiratory Rate 20 01/04/23 13:58 Blood Pressure 150/80 H 01/04/23 13:58 Pulse Oximetry 99 01/04/23 13:58 Oxygen Delivery Method Room Air 01/04/23 13:58 Temperature 97.3 F 01/04/23 13:58 Pulse Rate 102 H 01/04/23 13:58 Respiratory Rate 20 01/04/23 13:58 Blood Pressure 150/80 H 01/04/23 13:58 Pulse Oximetry 99 01/04/23 13:58 Oxygen Delivery Method Room Air 01/04/23 13:58 Height 4 ft 11 in Weight 80.739 kg Airway Mallampati Class: II TM Dist: >3cm Neck ROM: Full Loose/Missing/Broken Teeth: No Heart: S1S2 Lungs: CTAB Assessment and Plan Assessment Anesthesia Assessment: Anesthesia Plan Discussed and Chart Reviewed Final Anesthetic Review History of Problems with Anesthesia: No NPO: Yes ASA Class: III Final Preanesthetic Review: No Changes in Pt Med Stat, Meds/Allgs Chart Reviewed, Consent Obtained/Reviewed and Anes Risks/Benef Reviewed Patient Risk: Low Procedure Risk: Low Anesthetic Plan Anesthetic Plan: MAC: and Agree w/ Assess. and Plan Disposition: Standard PACU
--- NOTE | 2023-01-04 14:32 | MHC.SHP ---
Pre-Procedural Eval Section A Date of Service: 01/04/23 Section B Chief Complaint: screening Relevant Family History (Specify if Yes): No Relevant Social History: Tobacco Use Present Medications: see Short Stay Collaborative assessment Medical History: Significant History (HIV (viral load undetectable), Hypertension, and Asthma) History of Previous Operations: Relevant previous surgery/procedure and date(s) (History of esophagogastroduodenoscopy (EGD) History of partial hysterectomy) Allergies: Allergies Allergy/AdvReac Type Severity Reaction Status Date / Time hydrocodone [From VICODIN] Allergy Intermediate RASH, Verified 11/02/22 13:43 SWELLING acetaminophen [Vicodin] Allergy Unknown Unknown Verified 11/02/22 13:43 Review of Systems Sugical H&P ROS: Negative: Constitution, Cardiovascular, Respiratory, Neurological, Psychiatric, Hem-Onc, Allergic/Immunologic, Gastrointestinal, Genitourinary, Musculoskeletal, Integumentary, Endocrine and Eyes/Ears/Nose/Throat Exam Surgical H&P Exam: Normal: HEENT, Normal: Heart, Normal: Lungs, Normal: Extremities, Normal: Abdomen, Normal: Skin and Normal: Neurological Plan Diagnosis/Plan: Unchanged I have reviewed the history and physical and performed a pertinent physical examination on my patient. No changes have occurred unless specified. Time Spent With Patient Time: Total time managing care of this patient today ____ minutes.
--- NOTE | 2023-01-04 14:36 | P.OP_ITS ---
Operative Note Operative Note Date of Service: 01/04/23 Narrative: Operative Information Procedure Description: Colonoscopy Indication: screening Anesthesia: MAC COLONOSCOPY Instrument: Olympus variable stiffness pediatric scope 190L Colonoscopy Monitoring: Vital signs and clinical assessment, continuous EKG monitoring, Pulse oximetry, Carbon Dioxide monitoring and blood pressure monitoring were done throughout the procedure. Colon withdrawal time was 7 minutes. Procedure: The patient was placed in the left lateral decubitis position and pre-procedure medications were administered. After a digital rectal examination of the ano-rectum, the video colonoscope was inserted into the rectum and advanced through the colon to the cecum/TI. The colonoscope was slowly withdrawn in a retrograde panoramic fashion and the colon mucosa was carefully examined including a retroflexed view of the rectum. Findings and interventions are described below. Procedure Difficulty: moderate Findings: Terminal Ileum-not intubated Cecum:normal Ascending Colon: normal Transverse Colon -normal Descending Colon:normal Sigmoid Colon: normal Rectum: Retroflexion done but unable to see due to poor prep Anorectum - normal Colon preparation: [place] Bowel Preparation Scale Right colon; 1 Transverse colon: 1 Left colon; 1 (0 = Unprepared colon segment with mucosa not seen due to solid stool that cannot be cleared. 1 = Portion of mucosa of the colon segment seen, but other areas of the colon segment not well seen due to staining, residual stool and/or opaque liquid. 2 = Minor amount of residual staining, small fragments of stool and/or opaque liquid, but mucosa of colon segment seen well. 3 = Entire mucosa of colon segment seen well with no residual staining, small fragments of stool or opaque liquid) Impression and Post Procedure Diagnosis: poor prep Plan: High fiber diet leaflet Avoid straining at stool, epsom salts and sitz bath, anusol supps or cream Repeat Colonoscopy in 3-6 months with compliance to prep next time or earlier if clinically indicated Above findings were reviewed with the patient and relevant handouts were provided if indicated.
[2023-01-04 15:03] VITALS: BP 157/87; PULSE 105; RESP 18; TEMP 36.3; O2SAT 99
[2023-01-04 15:18] VITALS: BP 156/58; PULSE 101; RESP 18; TEMP 36.6; O2SAT 99
== END 2023-01-04 15:38 | disposition home or self-care (01) ==
PROVIDERS: PCP Registered Nurse; Visit Provider Internal Medicine Gastroenterology
PROC: 0DJD8ZZ Inspection of Lower Intestinal Tract, Via Natural or Artificial Opening Endoscopic (ICD-10-PCS; CPT 45378; principal; 2023-01-04 11:40)
DX: Z12.11 Encounter for screening for malignant neoplasm of colon (principal); K59.00 Constipation, unspecified; K21.9 Gastro-esophageal reflux disease without esophagitis; B20 Human immunodeficiency virus [HIV] disease; J45.909 Unspecified asthma, uncomplicated; G47.33 Obstructive sleep apnea (adult) (pediatric); Z79.899 Other long term (current) drug therapy; Z88.8 Allergy status to other drugs, medicaments and biological substances; F17.210 Nicotine dependence, cigarettes, uncomplicated
CPT/HCPCS: 45378

== ENCOUNTER → 2023-01-04 13:26 | Outpatient (BNV) | payer MEDICAID, SELFPAY | PROVIDERS: PCP Registered Nurse; Visit Provider Internal Medicine Gastroenterology | DX: Z12.11 Encounter for screening for malignant neoplasm of colon (principal); Z91.198 Patient's noncompliance with other medical treatment and regimen for other reason | CPT/HCPCS: 45378 ==

== ENCOUNTER 2023-02-02 14:25 | Outpatient (AMB) | payer MEDICAID, SELFPAY ==
--- NOTE | 2023-02-02 14:28 | A.OFFVIS_ITS ---
Intake Vital Signs 02/02/23 14:31 Height 4 ft 11 in Weight 196 lb BMI 39.6 BP 129/77 Blood Pressure Location Lt brachial Position Sitting Pulse 122 H Intake Visit Reasons: discuss prep colon Intake Note: Patient follow up for discuss pre colonoscopy screening. Patient denies any GI issues. Coo Required: No Accompanied by: Self / Same As Patient Allergies hydrocodone [From VICODIN] Allergy (Intermediate, Verified 02/02/23 14:28) RASH, SWELLING acetaminophen [Vicodin] Allergy (Unknown, Verified 02/02/23 14:28) Unknown Medication List - Last Reconciled 02/02/23 by Aster Cedillo PA-C atovaquone 750 mg PO BID ugrhywhxf-ypuidjfw-hiokfbh ala 50-200-25 mg (Biktarvy) 1 tab PO DAILY blood pressure test kit-large As directed chlorhexidine gluconate 0.12% 15 mL PO chlorthalidone 25 mg PO QAM cyanocobalamin (vitamin B-12) 1,000 mcg PO DAILY fluticasone furoate-vilanterol 200-25 mcg/dose (Breo Ellipta) 1 inh inhalation DAILY 30 days ibuprofen 800 mg PO TID PRN multivitamin with folic acid 400 mcg (Tab-A-Max) 1 tab PO DAILY olmesartan 20 mg PO DAILY omeprazole 40 mg PO BID 30 days quetiapine 400 mg PO BEDTIME rosuvastatin 20 mg PO BEDTIME sumatriptan succinate 50 mg PO umeclidinium 62.5 mcg/actuation (Incruse Ellipta) 1 inh inhalation DAILY 30 days HPI HPI Comments History of Present Illness Details A 47-year-old female follows up after recent colonoscopy with inadequat e prep. Reviewed procedure report, and recommendations to repeat colonoscopy in 3-6 months In she admits she did not follow prep instructions correctly typically her mother is hopeful had however she was not available at the time of prepping. She is here with her nephew she has no GI or general complaints Appetite is good She does have chronic constipation, however she is not using any remedy. She has no nausea, vomiting, hematemesis, hematochezia fever chills she has no abdominal pain [facility] Medical History (Updated 02/02/23 @ 14:59 by Aster Cedillo PA-C) HIV (human immunodeficiency virus infection) Surgical History Hx of colonoscopy History of partial hysterectomy History of esophagogastroduodenoscopy (EGD) Family History Unknown No problems noted. Social History Household Members Other:: Lives with her mother, 4 kids live in [place] Alcohol intake: former Patient Tobacco Use Status: Current everyday Tobacco user Cigarette Packs Per Day: 2 Cigarettes Per Day: 40.0 Years Smoked: 46 Current occupational status: disabled Review of Systems Const All systems reviewed & are unremarkable except as noted in HPI and below Card Denies chest pain and Denies dyspnea Resp Denies dyspnea GI Denies abdominal pain, Reports constipation and Denies heartburn Psych Reports depression, Denies homicidal ideation and Denies suicidal ideation Physical Exam Vital Signs: Last Vital Signs Pulse 122 H 02/02/23 14:31 BP 129/77 02/02/23 14:31 BMI result Body Mass Index 39.6 Const General: cooperative, comfortable and no acute distress Eyes Sclerae: sclerae normal Resp Effort & Inspection: normal respiratory effort and able to speak in complete sentences Auscultation: clear to auscultation bilaterally, no rales, no rhonchi and no wheezes Cardio Rate: tachycardic (apr 100) Rhythm: regular rhythm Heart sounds: S1 normal heart sound present and S2 normal heart sound present GI Palpation (GI): Soft to palpation and nontender Auscultation: normal bowel sounds Skin General skin exam: no rashes or lesions noted Extrem General: Yes full ROM Psych Mental Status: mental status grossly normal Speech and movement: Clear speech present Affect: Labile affect present Attitude: cooperative Thought content: Normal thought content present Results Reviewed Results Reviewed: Impression and Post Procedure Diagnosis: poor prep Plan: High fiber diet leaflet Avoid straining at stool, epsom salts and sitz bath, anusol supps or cream Repeat Colonoscopy in 3-6 months with compliance to prep next time or earlier if clinically indicated Assessment & Plan Assessment & Plan (1) Hx of colonoscopy: Comment: 12/2022 Rebecca-inadequate prep Code(s): Z98.890 - Other specified postprocedural states Plan: Reinforce instructions for prep (2) Chronic constipation: Code(s): K59.09 - Other constipation Plan: Consistent bowel regimen Maintain high-fiber diet Plan Repeat colonoscopy- 3-6 month- Rebecca walshiq- given to pt Orders: Orders Colonoscopy - GI Use Only 02/02/23 Z98.890 - Other specified postprocedural sta donny Medications: New polyethylene glycol 3350 (Miralax) 17 grams PO DAILY 510 grams 6RF calcium polycarbophil (FiberCon) 1,250 mg (2 x 625 mg) PO DAILY 30 days 60 tabs 3RF docusate sodium (Colace) 200 mg (2 x 100 mg) PO BEDTIME 60 caps 5RF Patient Instructions: Repeat colonoscopy- 3-6 month- Rebecca walshiq- given to pt-reviewed instructions Maintain high-fiber diet Maintain consistent bowel regimen Encouraged to call questions or concerns Appreciate the opportunity assist in the care the patient Coding Level of Care Code Est Pt Level 3 (84260) Diagnoses Hx of colonoscopy Z98.890 Chronic constipation K59.09 Time Spent (min) 25
[2023-02-02 14:31] VITALS: BP 129/77; PULSE 122; BMI 39.6
== END 2023-02-02 15:37 | disposition home or self-care (01) ==
PROVIDERS: PCP Registered Nurse; Visit Provider Physician Assistant
DX: K59.09 Other constipation (principal); Z91.199 Patient's noncompliance with other medical treatment and regimen due to unspecified reason
CPT/HCPCS: 99213

== ENCOUNTER → 2023-02-02 14:25 | Outpatient (BNVA) | payer MEDICAID, SELFPAY | PROVIDERS: PCP Registered Nurse; Visit Provider Physician Assistant | DX: K59.09 Other constipation (principal); Z98.890 Other specified postprocedural states | CPT/HCPCS: 99212 ==

== ENCOUNTER 2023-02-14 11:43 | Outpatient (REF) | payer MEDICAID, SELFPAY ==
[2023-02-14 13:25] LABS: MANUAL DIFF FLAG NO
[2023-02-14 13:46] LABS: Basophils Percent Auto 0.5 % (0-2); Eosinophils Absolute Auto 0.1 X10*3/uL (0.0-0.4); Eosinophils Percent Auto 1.2 % (0-4); Hematocrit 38.1 % (37.0-47.0); Hemoglobin 13.1 g/dl (12.0-16.0); Imm Gran Abs Auto 0.05 X10*3/uL (0.00-0.03); Imm Gran Pct Auto 0.8 % (0.0-0.4); Lymphocytes Absolute Auto 2.3 X10*3/uL (1.2-4.9); Lymphocytes Percent Auto 35.6 % (20-40); Mean Corpuscular HGB Conc 34.4 g/dl (31.0-35.0); Mean Corpuscular Hemoglobin 33.6 pg (27.0-33.0); Mean Corpuscular Volume 97.7 fL (80.0-98.0); Mean Platelet Volume 9.5 fL (9.4-12.3); Monocytes Absolute Auto 0.4 X10*3/uL (0.1-1.2); Monocytes Percent Auto 6.3 % (2-11); Neutrophils Absolute Auto 3.6 x10*3/uL (2.0-8.3); Neutrophils Percent Auto 55.6 % (45-73); Platelet Count 212 X10*3/uL (160-400); White Blood Count 6.5 X10*3/uL (4.8-10.8)
[2023-02-14 14:08] LABS: Alanine Aminotransferase 16 U/L (0-31); Albumin Level 3.9 g/dL (3.5-5.0); Alkaline Phosphatase 89 U/L (39-117); Anion Gap 13 (12-20); Aspartate Amino Transferase 17 U/L (5-31); Bilirubin Total 0.2 mg/dL (0.0-1.0); Blood Urea Nitrogen 9 mg/dL (9-16); Calcium 9.2 mg/dL (8.4-10.2); Carbon Dioxide 21 mmol/L (22-29); Chloride 108 mmol/L (96-108); Estimated Glomerular Filt Rate > 60; Glucose Random 107 mg/dL (60-115); Potassium 4.1 mmol/L (3.3-5.1); Sodium 138 mmol/L (135-145); Total Protein 7.4 g/dL (6.5-8.0)
[2023-02-15 11:13] LABS: Absolute CD3 Count 1687 cells/uL (840-3060); Absolute CD4 Count 653 cells/uL (490-1740); Absolute CD8 Count 1048 cells/uL (180-1170); Absolute Lymphocytes 2203 cells/uL (850-3900); CD4 CD8 Ratio 0.62 (0.86-5.00); Percent CD3 Cells 77 % (57-85); Percent CD4 Cells 30 % (30-61); Percent CD8 Cells 48 % (12-42)
[2023-02-15 14:19] LABS: HIV RNA PCR Qn Copies 72 copies/mL (NOT DETECTED); HIV RNA PCR Qn Log Copies 1.86 (NOT DETECTED)
== END 2023-02-14 11:44 | disposition home or self-care (01) ==
LOC: HO.HHCL 11:43
PROVIDERS: Visit Provider Internal Medicine
DX: B20 Human immunodeficiency virus [HIV] disease (principal)
CPT/HCPCS: 36415; 80053; 85025; 86359; 86360; 87536

== ENCOUNTER 2023-03-29 10:26 | Outpatient (REF) | payer MEDICAID, SELFPAY | END 2023-03-29 10:27 | disposition home or self-care (01) | LOC: HO.HHCL 10:26 | PROVIDERS: Visit Provider Internal Medicine | DX: B20 Human immunodeficiency virus [HIV] disease (principal) | CPT/HCPCS: 36415; 82550 ==

== ENCOUNTER 2023-04-20 10:35 | Outpatient (REF) | payer MEDICAID, SELFPAY ==
[2023-04-20 11:26] LABS: MANUAL DIFF FLAG NO
[2023-04-20 11:43] LABS: Basophils Percent Auto 0.5 % (0-2); Eosinophils Absolute Auto 0.1 X10*3/uL (0.0-0.4); Eosinophils Percent Auto 1.3 % (0-4); Hematocrit 41.8 % (37.0-47.0); Hemoglobin 14.4 g/dl (12.0-16.0); Imm Gran Abs Auto 0.06 X10*3/uL (0.00-0.03); Lymphocytes Absolute Auto 2.3 X10*3/uL (1.2-4.9); Lymphocytes Percent Auto 38.5 % (20-40); Mean Corpuscular HGB Conc 34.4 g/dl (31.0-35.0); Mean Corpuscular Hemoglobin 33.2 pg (27.0-33.0); Mean Corpuscular Volume 96.3 fL (80.0-98.0); Monocytes Absolute Auto 0.4 X10*3/uL (0.1-1.2); Monocytes Percent Auto 6.8 % (2-11); Neutrophils Absolute Auto 3.1 x10*3/uL (2.0-8.3); Neutrophils Percent Auto 51.9 % (45-73); Platelet Count 199 X10*3/uL (160-400); Red Blood Count 4.34 X10*6/uL (4.20-5.50); Red Cell Distribution Width 13.2 % (11.0-16.0); White Blood Count 6.1 X10*3/uL (4.8-10.8)
[2023-04-22 13:28] LABS: HIV RNA PCR Qn Copies NOT DETECTED copies/mL (NOT DETECTED); HIV RNA PCR Qn Log Copies NOT DETECTED (NOT DETECTED)
== END 2023-04-20 10:36 | disposition home or self-care (01) ==
LOC: HO.HHCL 10:35
PROVIDERS: Visit Provider Internal Medicine
DX: B20 Human immunodeficiency virus [HIV] disease (principal)
CPT/HCPCS: 36415; 82550; 85025; 87536

== ENCOUNTER 2023-05-19 10:09 | Outpatient (REF) | payer MEDICAID, SELFPAY ==
[2023-05-19 11:32] LABS: MANUAL DIFF FLAG NO
[2023-05-19 11:42] LABS: Basophils Percent Auto 0.5 % (0-2); Eosinophils Absolute Auto 0.1 X10*3/uL (0.0-0.4); Eosinophils Percent Auto 1.1 % (0-4); Hematocrit 43.2 % (37.0-47.0); Hemoglobin 14.8 g/dl (12.0-16.0); Imm Gran Abs Auto 0.05 X10*3/uL (0.00-0.03); Imm Gran Pct Auto 0.6 % (0.0-0.4); Lymphocytes Absolute Auto 2.8 X10*3/uL (1.2-4.9); Lymphocytes Percent Auto 33.3 % (20-40); Mean Corpuscular HGB Conc 34.3 g/dl (31.0-35.0); Mean Corpuscular Hemoglobin 32.7 pg (27.0-33.0); Mean Corpuscular Volume 95.6 fL (80.0-98.0); Mean Platelet Volume 9.5 fL (9.4-12.3); Monocytes Absolute Auto 0.6 X10*3/uL (0.1-1.2); Monocytes Percent Auto 7.3 % (2-11); Neutrophils Absolute Auto 4.8 x10*3/uL (2.0-8.3); Neutrophils Percent Auto 57.2 % (45-73); Platelet Count 193 X10*3/uL (160-400); Red Blood Count 4.52 X10*6/uL (4.20-5.50); White Blood Count 8.5 X10*3/uL (4.8-10.8)
[2023-05-19 12:04] LABS: Cholesterol 124 mg/dL (<200); HDL Cholesterol 27 mg/dL (>40); LDL Cholesterol Calculated 68 mg/dL (<100); Triglycerides 147 mg/dL (<150)
[2023-05-19 12:32] LABS: TSH reflex Free T4 2.81 uIU/mL (0.32-4.0)
== END 2023-05-19 10:10 | disposition home or self-care (01) ==
LOC: HO.HHCL 10:09
PROVIDERS: PCP Internal Medicine; Visit Provider Registered Nurse
DX: B20 Human immunodeficiency virus [HIV] disease (principal); R13.10 Dysphagia, unspecified; E04.9 Nontoxic goiter, unspecified; I10 Essential (primary) hypertension
CPT/HCPCS: 36415; 80061; 82550; 84443; 85025

== ENCOUNTER 2023-06-13 13:35 | Outpatient (REF) | payer MEDICAID, SELFPAY ==
--- NOTE | ~2023-06-13 | US_ITS ---
EXAMINATION: US THYROID CLINICAL INFORMATION: 47-year-old female with dysphagia and questionable goiter on PE. COMPARISON: None available. TECHNIQUE: Linear transducer son-scale and color Doppler examination with attention to the region of the thyroid. FINDINGS: SIZE: Measurements of the thyroid lobes and nodules are given in sagittal, anteroposterior and transverse dimensions respectively. Right Thyroid Lobe: 4.7 x 1.7 x 1.5 cm, volume 6.2 mL. Parenchyma: The gland echotexture is homogeneous. Thyroid vascularity is normal. Left Thyroid Lobe: 3.6 x 0.90 x 1.4 cm, volume 2.3 mL. Parenchyma: The gland echotexture is homogeneous. Thyroid vascularity is normal. Isthmus: 0.58 cm in maximum AP dimension. No focal thyroid nodule is seen. NODES: No lymphadenopathy is seen in the tissue surrounding the thyroid gland. US/US thyroid IMPRESSION: Normal thyroid ultrasound.
== END 2023-06-13 13:36 | disposition home or self-care (01) ==
LOC: HO.US 13:35
PROVIDERS: PCP Registered Nurse; Visit Provider Registered Nurse
DX: R13.10 Dysphagia, unspecified (principal); E04.9 Nontoxic goiter, unspecified
CPT/HCPCS: 76536

== ENCOUNTER 2023-06-14 12:55 | Outpatient (REF) | payer MEDICAID, SELFPAY | END 2023-06-14 12:56 | disposition home or self-care (01) | LOC: HO.HHCL 12:55 | PROVIDERS: Visit Provider Internal Medicine | DX: Z13.89 Encounter for screening for other disorder (principal) ==

== ENCOUNTER 2023-06-15 11:30 | Outpatient (REF) | payer MEDICAID, SELFPAY ==
[2023-06-15 13:33] LABS: MANUAL DIFF FLAG NO
[2023-06-15 13:57] LABS: Basophils Percent Auto 0.4 % (0-2); Eosinophils Absolute Auto 0.1 X10*3/uL (0.0-0.4); Eosinophils Percent Auto 1.8 % (0-4); Hematocrit 39.3 % (37.0-47.0); Hemoglobin 13.4 g/dl (12.0-16.0); Imm Gran Abs Auto 0.03 X10*3/uL (0.00-0.03); Imm Gran Pct Auto 0.4 % (0.0-0.4); Lymphocytes Absolute Auto 2.9 X10*3/uL (1.2-4.9); Lymphocytes Percent Auto 40.6 % (20-40); Mean Corpuscular HGB Conc 34.1 g/dl (31.0-35.0); Mean Corpuscular Hemoglobin 32.4 pg (27.0-33.0); Mean Corpuscular Volume 95.2 fL (80.0-98.0); Mean Platelet Volume 9.7 fL (9.4-12.3); Monocytes Absolute Auto 0.4 X10*3/uL (0.1-1.2); Monocytes Percent Auto 6.2 % (2-11); Neutrophils Absolute Auto 3.6 x10*3/uL (2.0-8.3); Neutrophils Percent Auto 50.6 % (45-73); Platelet Count 198 X10*3/uL (160-400); Red Blood Count 4.13 X10*6/uL (4.20-5.50); Red Cell Distribution Width 12.8 % (11.0-16.0); White Blood Count 7.1 X10*3/uL (4.8-10.8)
[2023-06-15 14:21] LABS: Alanine Aminotransferase 24 U/L (0-31); Albumin Level 4.2 g/dL (3.5-5.0); Alkaline Phosphatase 90 U/L (39-117); Anion Gap 14 (12-20); Aspartate Amino Transferase 22 U/L (5-31); Bilirubin Total 0.3 mg/dL (0.0-1.0); Blood Urea Nitrogen 15 mg/dL (9-16); Calcium 8.9 mg/dL (8.4-10.2); Carbon Dioxide 21 mmol/L (22-29); Chloride 107 mmol/L (96-108); Estimated Glomerular Filt Rate > 60; Glucose Random 121 mg/dL (60-115); Sodium 138 mmol/L (135-145); Total Protein 7.8 g/dL (6.5-8.0)
[2023-06-16 04:46] LABS: Syphilis Screen Reactive (Nonreactive)
[2023-06-16 10:14] LABS: Absolute CD3 Count 2059 cells/uL (840-3060); Absolute CD4 Count 807 cells/uL (490-1740); Absolute CD8 Count 1240 cells/uL (180-1170); Absolute Lymphocytes 2630 cells/uL (850-3900); CD4 CD8 Ratio 0.65 (0.86-5.00); Percent CD3 Cells 78 % (57-85); Percent CD4 Cells 31 % (30-61); Percent CD8 Cells 47 % (12-42)
[2023-06-16 13:59] LABS: HCV Log PCR <1.18 NOT DETECTED Log IU/mL (NOT DETECTED); HepC Viral Load <15 NOT DETECTED IU/mL (NOT DETECTED)
[2023-06-17 14:49] LABS: HIV RNA PCR Qn Copies 199 copies/mL (NOT DETECTED)
[2023-06-17 22:18] LABS: TS Negative Control Passed; TS Panel A 0; TS Panel B 1; TS Positive Control Passed; TSpotTB Negative (Negative)
[2023-06-22 15:17] LABS: RPR Quantitative Reactive 1:8 (Nonreactive); T.Pallidum Particle Agg Test Reactive (Nonreactive)
== END 2023-06-15 11:31 | disposition home or self-care (01) ==
LOC: HO.HHCL 11:30
PROVIDERS: Visit Provider Internal Medicine
DX: Z00.00 Encounter for general adult medical examination without abnormal findings (principal); Z11.4 Encounter for screening for human immunodeficiency virus [HIV]; Z11.1 Encounter for screening for respiratory tuberculosis
CPT/HCPCS: 36415; 80053; 82550; 85025; 86359; 86360; 86481; 86592; 86780; 87522; 87536

== ENCOUNTER 2023-06-27 13:35 | Outpatient (REF) | payer MEDICAID, SELFPAY | END 2023-06-27 13:36 | disposition home or self-care (01) | LOC: HO.MAMMO 13:35 | PROVIDERS: PCP Registered Nurse; Visit Provider Registered Nurse | DX: Z12.31 Encounter for screening mammogram for malignant neoplasm of breast (principal) | CPT/HCPCS: 77063; 77067 ==

== ENCOUNTER → 2023-06-27 14:00 | Outpatient (BNV) | payer MEDICAID, SELFPAY | PROVIDERS: PCP Registered Nurse; Visit Provider Radiology Diagnostic Radiology | DX: Z12.31 Encounter for screening mammogram for malignant neoplasm of breast (principal) | CPT/HCPCS: 77063; 77067 ==

== ENCOUNTER 2023-07-20 06:55 | Day surgery (SDC) | payer MEDICAID, SELFPAY ==
[2023-07-19 09:11] VITALS: BMI 39.6
--- NOTE | 2023-07-19 09:28 | P.CONAN_ITS ---
Documented by User: Fabienne Mckenzie NP 07/19/23 09:29 HPI - Anesthesia Eval Consult details Narrative: 47yo F for Colonoscopy PMFSH Active Problems Active Problems: All Active Problems Chronic constipation (Acute) Hx of colonoscopy (Acute) Kidney stone on left side (Acute) GERD (gastroesophageal reflux disease) (Acute) Environmental allergies (Acute) MAURICE (obstructive sleep apnea) (Acute) SANDOVAL (dyspnea on exertion) (Acute) HIV (human immunodeficiency virus infection) (Acute) Asthma (Acute) Encounter for screening colonoscopy (Acute) Past Medical History Medical History Asthma MAURICE (obstructive sleep apnea) GERD (gastroesophageal reflux disease) HIV (human immunodeficiency virus infection) Family History Family History Unknown No problems noted. Surgical History Surgical History Hx of colonoscopy History of partial hysterectomy History of esophagogastroduodenoscopy (EGD) History of Problems with Anesthesia: No Social History Social History Household Members Other:: Lives with her mother, 4 kids live in [place] Alcohol intake: former Patient Tobacco Use Status: Current everyday Tobacco user Cigarette Packs Per Day: 1.5 Cigarettes Per Day: 30.0 Years Smoked: 46 Smoked in Last 30 Days: Yes Use of substances other than those prescribed or required for medical reasons: No Are you DNR?: No Advance Directives: No Advance Directives Information Provided: Yes Current occupational status: disabled Meds Allergies Allergy/AdvReac Type Severity Reaction Status Date / Time hydrocodone [From VICODIN] Allergy Intermediate RASH, Verified 07/20/23 07:23 SWELLING acetaminophen [Vicodin] Allergy Unknown Unknown Verified 07/20/23 07:23 Home Medications ?Medication ?Instructions ?Recorded ?Confirmed ?Last Taken ?Type atovaquone 750 mg/5 mL oral 750 mg PO BID 02/18/22 07/20/23 Unknown History suspension bictegravir 50 mg-emtricitabine 1 tab PO DAILY 02/18/22 07/20/23 Unknown History 200 mg-tenofovir alafenam 25 mg tablet (vBrandvy) blood pressure test kit-large #1 ea 02/18/22 10/27/22 Unknown History rosuvastatin 20 mg tablet 20 mg PO BEDTIME 02/18/22 07/20/23 Unknown History sumatriptan succinate 50 mg tablet 50 mg PO Q8H PRN migraine 02/18/22 07/20/23 Unknown History chlorthalidone 25 mg tablet 25 mg PO QAM 09/17/22 07/20/23 Unknown History quetiapine 400 mg tablet 400 mg PO BEDTIME 09/17/22 07/20/23 Unknown History olmesartan 20 mg tablet 20 mg PO DAILY 01/04/23 07/20/23 01/04/23 07:00 History Exam Height,Weight and Vital Signs: Height 4 ft 11 in Weight 88.904 kg Assessment and Plan Assessment Anesthesia Assessment: Chart Reviewed Final Anesthetic Review History of Problems with Anesthesia: No Documented by User: Gale Maldonado MD 07/20/23 08:04 [facility] Past Medical History Medical History Asthma MAURICE (obstructive sleep apnea) GERD (gastroesophageal reflux disease) HIV (human immunodeficiency virus infection) Family History Family History Unknown No problems noted. Family history of problems with anesthesia: No Surgical History Surgical History Hx of colonoscopy History of partial hysterectomy History of esophagogastroduodenoscopy (EGD) Social History Social History Household Members Other:: Lives with her mother, 4 kids live in [place] Alcohol intake: former Patient Tobacco Use Status: Current everyday Tobacco user Cigarette Packs Per Day: 1.5 Cigarettes Per Day: 30.0 Years Smoked: 46 Smoked in Last 30 Days: Yes Use of substances other than those prescribed or required for medical reasons: No Are you DNR?: No Advance Directives: No Advance Directives Information Provided: Yes Current occupational status: disabled Meds Allergies Allergy/AdvReac Type Severity Reaction Status Date / Time hydrocodone [From VICODIN] Allergy Intermediate RASH, Verified 07/20/23 07:23 SWELLING acetaminophen [Vicodin] Allergy Unknown Unknown Verified 07/20/23 07:23 Home Medications ?Medication ?Instructions ?Recorded ?Confirmed ?Last Taken ?Type atovaquone 750 mg/5 mL oral 750 mg PO BID 02/18/22 07/20/23 Unknown History suspension bictegravir 50 mg-emtricitabine 1 tab PO DAILY 02/18/22 07/20/23 Unknown History 200 mg-tenofovir alafenam 25 mg tablet (Biktarvy) blood pressure test kit-large #1 ea 02/18/22 10/27/22 Unknown History rosuvastatin 20 mg tablet 20 mg PO BEDTIME 02/18/22 07/20/23 Unknown History sumatriptan succinate 50 mg tablet 50 mg PO Q8H PRN migraine 02/18/22 07/20/23 Unknown History chlorthalidone 25 mg tablet 25 mg PO QAM 09/17/22 07/20/23 Unknown History quetiapine 400 mg tablet 400 mg PO BEDTIME 09/17/22 07/20/23 Unknown History olmesartan 20 mg tablet 20 mg PO DAILY 01/04/23 07/20/23 01/04/23 07:00 History Exam Airway Mallampati Class: III TM Dist: >3cm Neck ROM: Full Heart: rrr Lungs: cta Assessment and Plan Assessment Anesthesia Assessment: Anesthesia Plan Discussed Final Anesthetic Review Family History of Problems with Anesthesia: No NPO: Yes ASA Class: III Final Preanesthetic Review: No Changes in Pt Med Stat, Meds/Allgs Chart Reviewed and Consent Obtained/Reviewed Patient Risk: Low Procedure Risk: Low Anesthetic Plan Anesthetic Plan: MAC: Disposition: Standard PACU
--- NOTE | 2023-07-20 06:25 | P.HPSUR_ITS ---
Pre-Procedural Eval Section A - 24 Hr Update-Section A only Date of Service: 07/20/23 Section B - Complete if H&P > 30 days Chief Complaint: Encounter for screening for malignant neoplasm of Relevant Family History (Specify if Yes): No Relevant Social History: None Present Medications: see Short Stay Collaborative assessment Medical History: Significant History ( HIV (human immunodeficiency virus infec tion)) History of Previous Operations: Relevant previous surgery/procedure and date(s) ( Hx of colonoscopy History of partial hysterectomy History of esophagogastroduodenoscopy (EGD)) Allergies: Allergies Allergy/AdvReac Type Severity Reaction Status Date / Time hydrocodone [From VICODIN] Allergy Intermediate RASH, Verified 02/02/23 14:28 SWELLING acetaminophen [Vicodin] Allergy Unknown Unknown Verified 02/02/23 14:28 Review of Systems Sugical H&P ROS: Negative: Constitution, Cardiovascular, Respiratory, Neurological, Psychiatric, Hem-Onc, Allergic/Immunologic, Gastrointestinal, Genitourinary, Musculoskeletal, Integumentary, Endocrine and E yes/Ears/Nose/Throat Exam Surgical H&P Exam: Normal: HEENT, Normal: Heart, Normal: Lungs, Normal: Extremities, Normal: Abdomen, Normal: Skin and Normal: Neurological Plan Diagnosis/Plan: Unchanged I have reviewed the history and physical and performed a pertinent physical examination on my patient. No changes have occurred unless specified. Time Spent With Patient Time: Total time managing care of this patient today ____ minutes.
[2023-07-20 07:34] VITALS: BP 107/67; PULSE 109; RESP 16; TEMP 36.7; O2SAT 94; BMI 41.6
[2023-07-20] MEDS: Lactated Ringers 1,000 ML 100 ML IVCONT (07:51)
[2023-07-20] MEDS: Albuterol Sulfate (0.083%) 2.5 MG/3 ML VIAL.NEB INHALE (08:04)
[2023-07-20 08:06] VITALS: PULSE 103; RESP 16; O2SAT 100
--- NOTE | 2023-07-20 08:31 | P.OPN-COLO_ITS ---
Colonoscopy Operative Note Operative Note Date of Service: 07/20/23 Narrative: Operative Information Procedure Description: Colonoscopy Indication: screening Anesthesia: MAC COLONOSCOPY Instrument: Olympus variable stiffness ADULT scope 190L Colonoscopy Monitoring: Vital signs and clinical assessment, continuous EKG monitoring, Pulse oximetry, Carbon Dioxide monitoring and blood pressure monitoring were done throughout the procedure. Colon withdrawal time was 7 minutes. Procedure: The patient was placed in the left lateral decubitis position and pre-procedure medications were administered. After a digital rectal examination of the ano-rectum, the video colonoscope was inserted into the rectum and advanced through the colon to the cecum/TI. The colonoscope was slowly withdrawn in a retrograde panoramic fashion and the colon mucosa was carefully examined including a retroflexed view of the rectum. Findings and interventions are described below. Procedure Difficulty: easy Findings: Terminal Ileum-normal Cecum:normal Ascending Colon: normal Transverse Colon -normal Descending Colon:normal Sigmoid Colon: normal Rectum: Retroflexion with small internal hemorrhoids seen, grade I Anorectum - normal Intervention: none Colon preparation: [place] Bowel Preparation Scale Right colon; 1-2 (cecum with thick debris) Transverse colon: 3 Left colon; 3 (0 = Unprepared colon segment with mucosa not seen due to solid stool that cannot be cleared. 1 = Portion of mucosa of the colon segment seen, but other areas of the colon segment not well seen due to staining, residual stool and/or opaque liquid. 2 = Minor amount of residual staining, small fragments of stool and/or opaque liquid, but mucosa of colon segment seen well. 3 = Entire mucosa of colon segment seen well with no residual staining, small fragments of stool or opaque liquid) Impression and Post Procedure Diagnosis: internal hemorrhoids Plan: High fiber diet leaflet Avoid straining at stool, epsom salts and sitz bath, anusol supps or cream Repeat Colonoscopy in 1-2 years due to fair right sided prep or earlier if clinically indicated Above findings were reviewed with the patient and relevant handouts were provided if indicated.
[2023-07-20 08:55] VITALS: BP 93/56; PULSE 110; RESP 16; TEMP 36.6; O2SAT 97
[2023-07-20 09:10] VITALS: BP 94/60; PULSE 103; RESP 18; TEMP 37; O2SAT 97
== END 2023-07-20 10:04 | disposition home or self-care (01) ==
PROVIDERS: PCP Registered Nurse; Visit Provider Internal Medicine Gastroenterology
PROC: 0DJD8ZZ Inspection of Lower Intestinal Tract, Via Natural or Artificial Opening Endoscopic (ICD-10-PCS; CPT 45378; principal; 2023-07-20 08:30)
DX: Z12.11 Encounter for screening for malignant neoplasm of colon (principal); K64.0 First degree hemorrhoids; Z21 Asymptomatic human immunodeficiency virus [HIV] infection status; Z88.5 Allergy status to narcotic agent; Z88.6 Allergy status to analgesic agent
CPT/HCPCS: 45378; 94640; J2704

== ENCOUNTER → 2023-07-20 06:55 | Outpatient (BNV) | payer MEDICAID, SELFPAY | PROVIDERS: PCP Registered Nurse; Visit Provider Internal Medicine Gastroenterology | DX: Z12.11 Encounter for screening for malignant neoplasm of colon (principal); K64.0 First degree hemorrhoids | CPT/HCPCS: 45378 ==

== ENCOUNTER 2023-08-17 15:15 | Outpatient (REF) | payer MEDICAID, SELFPAY ==
[2023-08-17 16:26] LABS: Estimated Average Glucose 128 mg/dL; Hemoglobin A1C 149.0148 umol/L; Hemoglobin A1c % 6.1 % (<6.0)
[2023-08-17 16:42] LABS: Alanine Aminotransferase 26 U/L (0-31); Albumin Level 4.4 g/dL (3.5-5.0); Alkaline Phosphatase 108 U/L (39-117); Anion Gap 13 (12-20); Aspartate Amino Transferase 22 U/L (5-31); Bilirubin Total 0.3 mg/dL (0.0-1.0); Blood Urea Nitrogen 22 mg/dL (9-16); Calcium 9.7 mg/dL (8.4-10.2); Carbon Dioxide 24 mmol/L (22-29); Chloride 104 mmol/L (96-108); Estimated Glomerular Filt Rate 59; Glucose Random 104 mg/dL (60-115); Potassium 3.7 mmol/L (3.3-5.1); Sodium 137 mmol/L (135-145); Total Protein 8.3 g/dL (6.5-8.0)
[2023-08-17 16:59] LABS: Vitamin D 25-OH Total 23.2 ng/mL (>30)
== END 2023-08-17 15:16 | disposition home or self-care (01) ==
LOC: HO.HHCL 15:15
PROVIDERS: Visit Provider Registered Nurse
DX: R63.5 Abnormal weight gain (principal)
CPT/HCPCS: 36415; 80053; 82306; 83036

== ENCOUNTER 2023-09-15 09:26 | Outpatient (REF) | payer MEDICAID, SELFPAY ==
[2023-09-15 11:42] LABS: MANUAL DIFF FLAG NO
[2023-09-15 11:48] LABS: Basophils Percent Auto 0.4 % (0-2); Eosinophils Absolute Auto 0.1 X10*3/uL (0.0-0.4); Eosinophils Percent Auto 1.3 % (0-4); Hematocrit 32.7 % (37.0-47.0); Hemoglobin 11.4 g/dl (12.0-16.0); Imm Gran Abs Auto 0.04 X10*3/uL (0.00-0.03); Imm Gran Pct Auto 0.6 % (0.0-0.4); Lymphocytes Absolute Auto 2.8 X10*3/uL (1.2-4.9); Lymphocytes Percent Auto 39.5 % (20-40); Mean Corpuscular HGB Conc 34.9 g/dl (31.0-35.0); Mean Corpuscular Hemoglobin 33.3 pg (27.0-33.0); Mean Corpuscular Volume 95.6 fL (80.0-98.0); Mean Platelet Volume 9.6 fL (9.4-12.3); Monocytes Absolute Auto 0.4 X10*3/uL (0.1-1.2); Monocytes Percent Auto 5.4 % (2-11); Neutrophils Absolute Auto 3.7 x10*3/uL (2.0-8.3); Neutrophils Percent Auto 52.8 % (45-73); Platelet Count 198 X10*3/uL (160-400); Red Blood Count 3.42 X10*6/uL (4.20-5.50); Red Cell Distribution Width 13.2 % (11.0-16.0); White Blood Count 7.1 X10*3/uL (4.8-10.8)
[2023-09-16 14:33] LABS: HIV RNA PCR Qn Copies 257 copies/mL (NOT DETECTED); HIV RNA PCR Qn Log Copies 2.41 (NOT DETECTED)
[2023-09-16 15:38] LABS: HCG Tumor Marker <5 mIU/mL
[2023-09-16 23:19] LABS: RPR Rapid Plasma Reagin REACTIVE (NON-REACTIVE)
[2023-09-17 14:58] LABS: HCV Log PCR <1.18 NOT DETECTED Log IU/mL (NOT DETECTED); HepC Viral Load <15 NOT DETECTED IU/mL (NOT DETECTED)
[2023-09-17 21:44] LABS: TS Negative Control Passed; TS Panel A 0; TS Panel B 0; TS Positive Control Passed; TSpotTB Negative (Negative)
[2023-09-18 18:13] LABS: Absolute CD3 Count 2758 cells/uL (840-3060); Absolute CD4 Count 1000 cells/uL (490-1740); Absolute CD8 Count 1702 cells/uL (180-1170); Absolute Lymphocytes 3493 cells/uL (850-3900); CD4 CD8 Ratio 0.59 (0.86-5.00); Percent CD3 Cells 79 % (57-85); Percent CD4 Cells 29 % (30-61); Percent CD8 Cells 49 % (12-42)
[2023-09-28 00:54] LABS: HPV mRNA E6/E7 rflx Not Detected (Not Detected)
== END 2023-09-15 09:27 | disposition home or self-care (01) ==
LOC: HO.HHCL 09:26
PROVIDERS: Visit Provider Internal Medicine
DX: B20 Human immunodeficiency virus [HIV] disease (principal)
CPT/HCPCS: 36415; 82550; 84702; 85025; 86359; 86360; 86481; 86592; 86593; 87522; 87536; 87624; 88112

== ENCOUNTER 2023-10-24 09:23 | Outpatient (AMB) | payer MEDICAID, SELFPAY ==
--- NOTE | 2023-10-24 09:34 | MHC.OFFVIS ---
Vital Signs 10/24/23 09:35 Height 4 ft 11 in Weight 199 lb BMI 40.2 BP 121/80 Blood Pressure Location Rt brachial Position Sitting Pulse 108 H Intake Visit Reasons: Dysplasia of Rectum Intake Note: This patient presents for Dysplasia of Rectum, HIV infection. Pt c/o; reports no complaints. 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 Services: Inspector Subassemblies Present Inspector Subassemblies Name: Maddison Information Interpreted: non-clinical & clinical Accompanied by: Self / Same As Patient Allergies hydrocodone [From VICODIN] Allergy (Intermediate, Verified 10/24/23 09:39) RASH, SWELLING acetaminophen [Vicodin] Allergy (Unknown, Verified 10/24/23 09:39) Unknown Medication List - Last Reconciled 10/24/23 by Cesario Lynch MD atovaquone 750 mg PO BID hpjmyqfsn-nhmjyspe-auhmayu ala 50-200-25 mg (Biktarvy) 1 tab PO DAILY blood pressure test kit-large As directed calcium polycarbophil (FiberCon) 1,250 mg (2 x 625 mg) PO DAILY 30 days chlorthalidone 25 mg PO QAM docusate sodium (Colace) 200 mg (2 x 100 mg) PO BEDTIME fluticasone furoate-vilanterol 200-25 mcg/dose (Breo Ellipta) 1 inh inhalation DAILY 30 days olmesartan 20 mg PO DAILY omeprazole 40 mg PO .bid quetiapine 400 mg PO BEDTIME rosuvastatin 20 mg PO BEDTIME sumatriptan succinate 50 mg PO Q8H PRN umeclidinium 62.5 mcg/actuation (Incruse Ellipta) 1 inh inhalation DAILY 30 days HPI HPI Dysplasia of Rectum: Details: 48-year-old female referred for an abnormal anal Pap. She had AIN 1 on anal Pap last September,. She denies any complaints with regards to her anus. She had been diagnosed with HIV since 2009. She says her viral load has been undetectable. She feels well overall. [facility] Medical History (Updated 10/24/23 @ 09:52 by Cesario Lynch MD) AIN grade I Morbid obesity Asthma MAURICE (obstructive sleep apnea) GERD (gastroesophageal reflux disease) HIV (human immunodeficiency virus infection) Surgical History Hx of colonoscopy History of partial hysterectomy History of esophagogastroduodenoscopy (EGD) Family History Unknown No problems noted. Social History Household Members Other:: Lives with her mother, 4 kids live in [place] Alcohol intake: former Patient Tobacco Use Status: Current everyday Tobacco user Cigarette Packs Per Day: 1.5 Cigarettes Per Day: 30.0 Years Smoked: 46 Current occupational status: disabled Review of Systems Const Denies chills and Denies fever(s) Card Denies chest pain, Denies dyspnea and Denies dyspnea on exertion Resp Denies cough, Denies dyspnea and Denies dyspnea on exertion GI Denies hematochezia and Denies change in bowel habits Denies hematuria Musc Denies back pain and Denies limited range of motion Neuro Denies focal weakness and Denies convulsions Psych Denies depression and Denies mood swings Physical Exam Vital Signs: Last Vital Signs Pulse 108 H 10/24/23 09:35 BP 121/80 10/24/23 09:35 BMI result Body Mass Index 40.2 Const General: comfortable and no acute distress Orientation/consciousness: patient oriented x3 Neck Neck: Yes no lymphadenopathy Resp Auscultation: clear to auscultation bilaterally Cardio Rhythm: regular rhythm GI Other: Rectal exam shows no perianal lesions Palpation (GI): Soft to palpation, nontender and no guarding Neuro General: patient oriented x3 Assessment & Plan Assessment & Plan (1) AIN grade I: Code(s): K62.82 - Dysplasia of anus Category: Medical Plan: 48-year-old female with HIV, with AIN 1 on anal Pap. Anoscopy as well as as well as rectal exam does not reveal any suggestion of a high-grade lesion. She denies any history of anoreceptive intercourse. She denies any complaints with regards to her anus I have instructed her to come back to the office in about 6 months so we can repeat her anoscopy. She otherwise seems to be at low risk for higher grade lesions at this time. Coding Level of Care Code New Pt Level 3 (61199) Diagnoses AIN grade I K62.82
[2023-10-24 09:35] VITALS: BP 121/80; PULSE 108; BMI 40.2
== END 2023-10-24 09:53 | disposition home or self-care (01) ==
PROVIDERS: PCP Registered Nurse; Visit Provider Surgery
DX: K62.82 Dysplasia of anus (principal)
CPT/HCPCS: 99203

== ENCOUNTER → 2023-10-24 09:23 | Outpatient (BNVA) | payer MEDICAID, SELFPAY | PROVIDERS: PCP Registered Nurse; Visit Provider Surgery | DX: K62.82 Dysplasia of anus (principal) | CPT/HCPCS: 99202 ==

== ENCOUNTER 2024-01-17 11:28 | Outpatient (REF) | payer MEDICAID, SELFPAY ==
[2024-01-17 13:28] LABS: MANUAL DIFF FLAG NO
[2024-01-17 13:38] LABS: Basophils Percent Auto 0.6 % (0-2); Eosinophils Absolute Auto 0.1 X10*3/uL (0.0-0.4); Eosinophils Percent Auto 1.3 % (0-4); Hematocrit 42.8 % (37.0-47.0); Hemoglobin 14.7 g/dl (12.0-16.0); Imm Gran Abs Auto 0.11 X10*3/uL (0.00-0.03); Imm Gran Pct Auto 1.6 % (0.0-0.4); Lymphocytes Absolute Auto 2.8 X10*3/uL (1.2-4.9); Lymphocytes Percent Auto 40.7 % (20-40); Mean Corpuscular HGB Conc 34.3 g/dl (31.0-35.0); Mean Corpuscular Hemoglobin 32.6 pg (27.0-33.0); Mean Corpuscular Volume 94.9 fL (80.0-98.0); Mean Platelet Volume 9.8 fL (9.4-12.3); Monocytes Absolute Auto 0.4 X10*3/uL (0.1-1.2); Monocytes Percent Auto 5.5 % (2-11); Neutrophils Absolute Auto 3.5 x10*3/uL (2.0-8.3); Neutrophils Percent Auto 50.3 % (45-73); Platelet Count 181 X10*3/uL (160-400); Red Blood Count 4.51 X10*6/uL (4.20-5.50); Red Cell Distribution Width 13.9 % (11.0-16.0); White Blood Count 6.9 X10*3/uL (4.8-10.8)
[2024-01-18 16:39] LABS: HIV RNA PCR Qn Copies 92 copies/mL (NOT DETECTED); HIV RNA PCR Qn Log Copies 1.96 (NOT DETECTED)
[2024-01-20 19:48] LABS: Absolute CD3 Count 1987 cells/uL (840-3060); Absolute CD4 Count 823 cells/uL (490-1740); Absolute CD8 Count 1200 cells/uL (180-1170); Absolute Lymphocytes 2734 cells/uL (850-3900); CD4 CD8 Ratio 0.69 (0.86-5.00); Percent CD3 Cells 73 % (57-85); Percent CD4 Cells 30 % (30-61); Percent CD8 Cells 44 % (12-42)
== END 2024-01-17 11:29 | disposition home or self-care (01) ==
LOC: HO.HHCL 11:28
PROVIDERS: Visit Provider Internal Medicine
DX: Z21 Asymptomatic human immunodeficiency virus [HIV] infection status (principal)
CPT/HCPCS: 36415; 80053; 82550; 85025; 86359; 86360; 87536

== ENCOUNTER 2024-01-28 15:57 | Emergency (ER) | payer MEDICAID, SELFPAY ==
--- NOTE | 2024-01-28 16:02 | ED_ITS ---
HPI - Headache General Chief Complaint: Headache Stated Complaint: headache,fever Time Seen by Provider: 01/28/24 16:42 Source: patient Mode of arrival: ambulatory Limitations: no limitations History of Present Illness ED Provider: librado KAUR Narrative: Patient's history of migraine headache does take Imitrex complaining of similar headache on the right side for last 3 days with nausea and light sensitivity no vomiting no high fever neck pain Related Data Home Medications ?Medication ?Instructions ?Recorded ?Confirmed atovaquone 750 mg/5 mL oral 750 mg PO BID 02/18/22 10/24/23 suspension bictegravir 50 mg-emtricitabine 1 tab PO DAILY 02/18/22 10/24/23 200 mg-tenofovir alafenam 25 mg tablet (Biktarvy) blood pressure test kit-large #1 ea 02/18/22 10/24/23 rosuvastatin 20 mg tablet 20 mg PO BEDTIME 02/18/22 10/24/23 sumatriptan succinate 50 mg tablet 50 mg PO Q8H PRN migraine 02/18/22 10/24/23 chlorthalidone 25 mg tablet 25 mg PO QAM 09/17/22 10/24/23 quetiapine 400 mg tablet 400 mg PO BEDTIME 09/17/22 10/24/23 olmesartan 20 mg tablet 20 mg PO DAILY 01/04/23 10/24/23 Previous Rx's ?Medication ?Instructions ?Recorded calcium polycarbophil 625 mg 1,250 mg (2 x 625 mg) PO DAILY 30 02/02/23 tablet (FiberCon) days #60 tabs omeprazole 40 mg capsule,delayed 40 mg PO .bid #60 caps 05/27/23 release fluticasone furoate 200 1 inh inhalation DAILY 30 days #1 06/21/23 mcg-vilanterol 25 mcg/dose ea inhalation powder (Breo Ellipta) umeclidinium 62.5 mcg/actuation 1 inh inhalation DAILY 30 days #1 06/21/23 blister powder for inhalation ea (Incruse Ellipta) docusate sodium 100 mg capsule 200 mg (2 x 100 mg) PO BEDTIME #60 11/08/23 (Stool Softener) caps xexnzncknl-yghkzmocvmsih-ndckhgyg 1 tab PO Q6H PRN haeadace #20 tabs 01/28/24 50 mg-325 mg-40 mg tablet ondansetron 4 mg disintegrating 4 mg PO Q6-8H PRN nausea and 01/28/24 tablet vomiting #7 tabs sumatriptan succinate 50 mg tablet 50 mg PO Q2H PRN migraine headache 01/28/24 (Imitrex) #10 tabs Allergies Allergy/AdvReac Type Severity Reaction Status Date / Time hydrocodone [From VICODIN] Allergy Intermediate RASH, Verified 01/28/24 16:04 SWELLING Review of Systems 2 Review of Systems: Yes all other systems are reviewed and are negative [facility] Past Medical History Medical History AIN grade I Morbid obesity Asthma MAURICE (obstructive sleep apnea) GERD (gastroesophageal reflux disease) HIV (human immunodeficiency virus infection) Surgical History Hx of colonoscopy History of partial hysterectomy History of esophagogastroduodenoscopy (EGD) Family History Family History Unknown No problems noted. Social History Social History Household Members Other:: Lives with her mother, 4 kids live in [place] Alcohol intake: former Patient Tobacco Use Status: Current everyday Tobacco user Cigarette Packs Per Day: 1.5 Cigarettes Per Day: 30.0 Years Smoked: 46 Smoked in Last 30 Days: Yes Use of substances other than those prescribed or required for medical reasons: No Advance Directives: No Advance Directives Information Provided: No Do you have a plan to hurt others: No Plan Current occupational status: disabled Physical Exam 2 Vital Signs: Vital Signs: Last Vital Signs Temp 97.6 F 01/28/24 18:45 Pulse 88 01/28/24 18:45 Resp 18 01/28/24 18:45 BP 136/59 L 01/28/24 18:45 Pulse Ox 99 01/28/24 18:45 O2 Del Method Room Air 01/28/24 18:45 BMI result Body Mass Index 38.6 Appearance: Alert. Oriented X3. No acute distress. Eyes: No pallor or icterus ENT: Pharynx normal. Oral Mucosa moist temporal artery nontender Neck: Normal inspection. Neck supple. CVS: Normal heart rate and rhythm. Pulses normal. Respiratory: No respiratory distress. Equal air entry bilateral, Abdomen: Soft and nontender. Bowel sounds are present, no mass palpable, no CVA tenderness Skin: Skin warm and dry. Normal skin color. Normal skin turgor. Extremities: No lower extremity edema. No calf tenderness Neuro: Oriented X 3. No motor deficit. Course Course Course Narrative: This is a Rapid Medical Exam performed in triage by Karla Hernández PA-C. Full HPI, ROS and PE to be performed by primary ED provider. 48-year-old female with a past medical history of renal stones, GERD, asthma, MAURICE, HIV, presenting to the ED c/o migraine LOPEZ x3 days w/nausea & vomiting & lightheadedness. Admits suffers from migraines, this is worse than normal, & is out of her Sumatriptan. PE: ambulating w/steady gait, no focal deficits Plan: Labs, viral testing, ur preg Medications Administered Discontinued Medications Generic Name Dose Route Start Last Admin Trade Name Freq PRN Reason Stop Dose Admin Acetaminophen/Butalbital/Caffeine 1 tab 01/28/24 18:29 01/28/24 18:42 Butalb/Acetamin/Caff 50/325/40 Tablet PO 01/28/24 18:30 1 tab ONCE ONE Administration Ondansetron HCl 4 mg 01/28/24 16:50 01/28/24 17:18 Ondansetron Odt 4 Mg Tab.Rapdis TRANSLINGU 01/28/24 16:51 4 mg ONCE ONE Administration Sumatriptan Succinate 6 mg 01/28/24 16:50 01/28/24 17:18 Sumatriptan Succinate 6 Mg/0.5 Ml Vial SUBCUT 01/28/24 16:51 6 mg ONCE ONE Administration Medical Decision Making Medical Decision Making MDM Narrative: Patient's migraine headache improved after Imitrex discharge patient home Lab Data 01/28/24 16:43 01/28/24 16:43 Labs: Lab Results 01/28/24 01/28/24 Range/Units 16:43 17:50 WBC 7.7 (4.8-10.8) X10*3/uL RBC 4.20 (4.20-5.50) X10*6/uL Hgb 13.5 (12.0-16.0) g/dl Hct 39.4 (37.0-47.0) % MCV 93.8 (80.0-98.0) fL MCH 32.1 (27.0-33.0) pg MCHC 34.3 (31.0-35.0) g/dl RDW 13.3 (11.0-16.0) % Plt Count 167 (160-400) X10*3/uL MPV 9.5 (9.4-12.3) fL Immature Gran % (Auto) 0.5 H (0.0-0.4) % Neut % (Auto) 52.3 (45-73) % Lymph % (Auto) 40.4 H (20-40) % [place] % (Auto) 5.5 (2-11) % Eos % (Auto) 0.8 (0-4) % Baso % (Auto) 0.5 (0-2) % Lymph # (Auto) 3.1 (1.2-4.9) X10*3/uL [place] # (Auto) 0.4 (0.1-1.2) X10*3/uL Eos # (Auto) 0.1 (0.0-0.4) X10*3/uL Baso # (Auto) 0.0 (0.0-0.2) X10*3/uL Abs Immat Gran (auto) 0.04 H (0.00-0.03) X10*3/uL Absolute Neuts (auto) 4.0 (2.0-8.3) x10*3/uL Absolute Nucleated RBC 0.000 (0.0-0.012) X10*3/uL Nucleated RBC % (auto) 0.0 (0.0-0.2) /100WBC Sodium 139 (135-145) mmol/L Potassium 4.0 (3.3-5.1) mmol/L Chloride 105 (96-108) mmol/L Carbon Dioxide 27 (22-29) mmol/L Anion Gap 11 L (12-20) BUN 6 L (9-16) mg/dL Creatinine 0.87 (0.5-1.4) mg/dL Estim Creat Clear Calc 76.5 Estimated GFR > 60 Random Glucose 118 H (60-115) mg/dL Calcium 9.4 (8.4-10.2) mg/dL Urine Test NEGATIVE (NEGATIVE) Influenza Type A (PCR) NEGATIVE (Negative) Influenza Type B (PCR) NEGATIVE (Negative) RSV RNA Qual (PCR) NEGATIVE (Negative) SARS-CoV-2 RNA (RT-PCR) NEGATIVE (Negative) Discharge Plan Discharge Clinical Impression: Migraine Patient Disposition: Home, Self-Care Instructions: Migraine Headache (ED) Additional Instructions: Rest at home Take Imitrex and Fioricet as advised Follow up with PCP Prescriptions: New sumatriptan succinate [Imitrex] 50 mg tablet 50 mg PO Q2H PRN (Reason: migraine headache) Qty: 10 0RF Rx Instructions: do not exceed 2 doses per 24 hrs nnstfgnpxi-vcygedljdbfve-glie 50-325-40 mg tablet 1 tab PO Q6H PRN (Reason: haeadace) Qty: 20 0RF ondansetron 4 mg tablet,disintegrating 4 mg PO Q6-8H PRN (Reason: nausea and vomiting) Qty: 7 0RF No Action omeprazole 40 mg capsule,delayed release(DR/EC) 40 mg PO .bid Qty: 60 6RF fluticasone furoate-vilanterol [Breo Ellipta] 200-25 mcg/dose blister with device 1 inh inhalation DAILY 30 Days Qty: 1 6RF Incruse Ellipta 62.5 mcg/actuation blister with device 1 inh inhalation DAILY 30 Days Qty: 1 6RF docusate sodium [Stool Softener] 100 mg capsule 200 mg PO BEDTIME Qty: 60 5RF olmesartan 20 mg tablet 20 mg PO DAILY Biktarvy 50-200-25 mg tablet 1 tab PO DAILY sumatriptan succinate 50 mg tablet 50 mg PO Q8H PRN (Reason: migraine) (DME) blood pressure test kit-large Kit See Rx Instructions .ROUTE .MEDSUPPLY Qty: 1 Rx Instructions: As directed rosuvastatin 20 mg tablet 20 mg PO BEDTIME atovaquone 750 mg/5 mL suspension 750 mg PO BID quetiapine 400 mg tablet 400 mg PO BEDTIME chlorthalidone 25 mg tablet 25 mg PO QAM calcium polycarbophil [FiberCon] 625 mg tablet 1,250 mg PO DAILY 30 Days Qty: 60 3RF Interventions: ED Discharge Assessment Last Done: 01/28/24 18:45 Discharge Date/Time: 01/28/24 18:50 Print Language: French
[2024-01-28 16:03] VITALS: BP 121/70; PULSE 94; RESP 18; TEMP 36.4; O2SAT 100; BMI 38.6
[2024-01-28 16:49] LABS: MANUAL DIFF FLAG NO
[2024-01-28 16:50] LABS: Basophils Percent Auto 0.5 % (0-2); Eosinophils Absolute Auto 0.1 X10*3/uL (0.0-0.4); Eosinophils Percent Auto 0.8 % (0-4); Hematocrit 39.4 % (37.0-47.0); Hemoglobin 13.5 g/dl (12.0-16.0); Imm Gran Abs Auto 0.04 X10*3/uL (0.00-0.03); Imm Gran Pct Auto 0.5 % (0.0-0.4); Lymphocytes Absolute Auto 3.1 X10*3/uL (1.2-4.9); Lymphocytes Percent Auto 40.4 % (20-40); Mean Corpuscular HGB Conc 34.3 g/dl (31.0-35.0); Mean Corpuscular Hemoglobin 32.1 pg (27.0-33.0); Mean Corpuscular Volume 93.8 fL (80.0-98.0); Mean Platelet Volume 9.5 fL (9.4-12.3); Monocytes Absolute Auto 0.4 X10*3/uL (0.1-1.2); Monocytes Percent Auto 5.5 % (2-11); Neutrophils Percent Auto 52.3 % (45-73); Platelet Count 167 X10*3/uL (160-400); Red Cell Distribution Width 13.3 % (11.0-16.0); White Blood Count 7.7 X10*3/uL (4.8-10.8)
[2024-01-28 17:05] LABS: Anion Gap 11 (12-20); Blood Urea Nitrogen 6 mg/dL (9-16); Calcium 9.4 mg/dL (8.4-10.2); Carbon Dioxide 27 mmol/L (22-29); Chloride 105 mmol/L (96-108); Creatinine Clr Calc Pharmacy 76.5; Estimated Glomerular Filt Rate > 60; Glucose Random 118 mg/dL (60-115); Sodium 139 mmol/L (135-145)
[2024-01-28] MEDS: Ondansetron ODT 4 MG TAB.RAPDIS TRANSLINGU (17:18)
[2024-01-28] MEDS: SUMAtriptan succinate 6 MG/0.5 ML VIAL SUBCUT (17:18)
--- NOTE | 2024-01-28 17:37 | ECG_ITS ---
Test Reason : CHEST PAIN Blood Pressure : / mmHG Vent. Rate : 083 BPM Atrial Rate : 083 BPM P-R Int : 170 ms QRS Dur : 078 ms QT Int : 356 ms P-R-T Axes : 036 021 -05 degrees QTc Int : 418 ms Normal sinus rhythm Nonspecific ST and T wave abnormality Abnormal ECG When compared with ECG of 01-AUG-2017 21:54, Non-specific change in ST segment in Inferior leads QT has shortened Referred By: Lopez Scott Electronically Signed By:KAIT MARIEE MD
[2024-01-28 17:39] LABS: Influenza A PCR NEGATIVE (Negative); Influenza B PCR NEGATIVE (Negative); Resp Syncy Virus RNA Qual PCR NEGATIVE (Negative); SARS COV2 PCR INHOUSE NEGATIVE (Negative)
--- NOTE | 2024-01-28 17:54 | PC.NURSE ---
Pt alerted she has chest pain, provider notified. EKG done and placed on gambling monitor.
[2024-01-28 17:58] VITALS: BP 136/59; PULSE 88; RESP 18; O2SAT 99
[2024-01-28 18:03] LABS: UPreg QC Valid YES; Urine Pregnancy NEGATIVE (NEGATIVE)
[2024-01-28] MEDS: Butalb/Acetamin/Caff 50/325/40 TABLET 1 TAB PO (18:42)
[2024-01-28 18:45] VITALS: BP 136/59; PULSE 88; RESP 18; TEMP 36.4; O2SAT 99
== END 2024-01-28 18:50 | disposition home or self-care (01) ==
PROVIDERS: Physician Assistant; Emergency Provider Internal Medicine; PCP Registered Nurse
DX: G43.909 Migraine, unspecified, not intractable, without status migrainosus (principal); Z03.818 Encounter for observation for suspected exposure to other biological agents ruled out; B20 Human immunodeficiency virus [HIV] disease; J45.909 Unspecified asthma, uncomplicated
CPT/HCPCS: 0241U; 80048; 81025; 85025; 93005; 96372; 99284; 99285; J3030

== ENCOUNTER → 2024-01-28 17:37 | Outpatient (BNV) | payer MEDICAID, SELFPAY | PROVIDERS: Emergency Provider Internal Medicine; PCP Registered Nurse; Visit Provider Internal Medicine Cardiovascular Disease | DX: R07.9 Chest pain, unspecified (principal); R94.31 Abnormal electrocardiogram [ECG] [EKG] | CPT/HCPCS: 93010 ==

== ENCOUNTER 2024-04-17 14:15 | Emergency (ER) | payer MEDICAID, SELFPAY ==
--- NOTE | ~2024-04-17 | XR_ITS ---
EXAMINATION: XR CHEST CLINICAL INFORMATION: pneumonia? COMPARISON: 09/01/2022. TECHNIQUE: Frontal view of the chest was obtained. FINDINGS: No significant abnormality is noted involving the heart, lungs, mediastinum, bony thorax or soft tissues. XR/XR chest 1V IMPRESSION: Normal chest. Electronically signed by: Yosef Stephens MD 04/17/2024 04:29 PM [facility]
[2024-04-17 15:32] VITALS: BP 132/69; PULSE 77; RESP 18; TEMP 36.1; O2SAT 99; BMI 40.4
--- NOTE | 2024-04-17 15:37 | ECG_ITS ---
Test Reason : CHEST PAIN Blood Pressure : */* mmHG Vent. Rate : 64 BPM Atrial Rate : 64 BPM P-R Int : 166 ms QRS Dur : 76 ms QT Int : 394 ms P-R-T Axes : 20 19 15 degrees QTcB Int : 406 ms Sinus rhythm with marked sinus arrhythmia Cannot rule out Anterior infarct , age undetermined Abnormal ECG When compared with ECG of 28-Jan-2024 17:41, No significant change was found Referred By: Juan Lees Electronically Signed By: KAIT MARIEE MD
--- NOTE | 2024-04-17 15:40 | ED.GENADULT ---
HPI - General Adult General Chief complaint: General Medical Stated complaint: SOB, nausea, dizziness History of Present Illness HPI narrative: Patient left before completion of treament by ED proider Related Data Home Medications ?Medication ?Instructions ?Recorded ?Confirmed atovaquone 750 mg/5 mL oral 750 mg PO BID 02/18/22 10/24/23 suspension bictegravir 50 mg-emtricitabine 1 tab PO DAILY 02/18/22 10/24/23 200 mg-tenofovir alafenam 25 mg tablet (Biktarvy) blood pressure test kit-large #1 ea 02/18/22 10/24/23 rosuvastatin 20 mg tablet 20 mg PO BEDTIME 02/18/22 10/24/23 sumatriptan succinate 50 mg tablet 50 mg PO Q8H PRN migraine 02/18/22 10/24/23 chlorthalidone 25 mg tablet 25 mg PO QAM 09/17/22 10/24/23 quetiapine 400 mg tablet 400 mg PO BEDTIME 09/17/22 10/24/23 olmesartan 20 mg tablet 20 mg PO DAILY 01/04/23 10/24/23 Previous Rx's ?Medication ?Instructions ?Recorded calcium polycarbophil 625 mg 1,250 mg (2 x 625 mg) PO DAILY 30 02/02/23 tablet (FiberCon) days #60 tabs omeprazole 40 mg capsule,delayed 40 mg PO .bid #60 caps 05/27/23 release fluticasone furoate 200 1 inh inhalation DAILY 30 days #1 06/21/23 mcg-vilanterol 25 mcg/dose ea inhalation powder (Breo Ellipta) umeclidinium 62.5 mcg/actuation 1 inh inhalation DAILY 30 days #1 06/21/23 blister powder for inhalation ea (Incruse Ellipta) docusate sodium 100 mg capsule 200 mg (2 x 100 mg) PO BEDTIME #60 11/08/23 (Stool Softener) caps lxfjwfzkhh-ihxmkxdffbwmd-lnwvarjt 1 tab PO Q6H PRN haeadace #20 tabs 01/28/24 50 mg-325 mg-40 mg tablet ondansetron 4 mg disintegrating 4 mg PO Q6-8H PRN nausea and 01/28/24 tablet vomiting #7 tabs sumatriptan succinate 50 mg tablet 50 mg PO Q2H PRN migraine headache 01/28/24 (Imitrex) #10 tabs Allergies Allergy/AdvReac Type Severity Reaction Status Date / Time hydrocodone [From VICODIN] Allergy Intermediate RASH, Verified 04/17/24 15:34 SWELLING PMFSH Past Medical History Medical History AIN grade I Morbid obesity Asthma MAURICE (obstructive sleep apnea) GERD (gastroesophageal reflux disease) HIV (human immunodeficiency virus infection) Surgical History Hx of colonoscopy History of partial hysterectomy History of esophagogastroduodenoscopy (EGD) Family History Family History Unknown No problems noted. Social History Social History Household Members Other:: Lives with her mother, 4 kids live in [place] Alcohol intake: former Patient Tobacco Use Status: Current everyday Tobacco user Cigarette Packs Per Day: 1.5 Cigarettes Per Day: 30.0 Years Smoked: 46 Advance Directives: No Advance Directives Information Provided: No Do you have a plan to hurt others: No Plan Current occupational status: disabled Physical Exam ED Vital Signs: Vital Signs - 24 hr 04/17/24 15:32 Temperature 97.0 F Pulse Rate 77 Respiratory Rate 18 Blood Pressure 132/69 Pulse Oximetry 99 Oxygen Delivery Method Room Air BMI result Body Mass Index 40.4 Course Course Course Narrative: RME: 48 yold female with pmh of HIV low CD4 count presents to the ED for chest pain, abdominal pain dizziness nausea vomiting for 1 week. Labs EKG chest x-ray ordered Medical Decision Making Lab Data 04/17/24 16:00 04/17/24 16:00 Labs: Lab Results 04/17/24 Range/Units 16:00 WBC 11.4 H (4.8-10.8) X10*3/uL RBC 4.41 (4.20-5.50) X10*6/uL Hgb 14.3 (12.0-16.0) g/dl Hct 41.2 (37.0-47.0) % MCV 93.4 (80.0-98.0) fL MCH 32.4 (27.0-33.0) pg MCHC 34.7 (31.0-35.0) g/dl RDW 14.2 (11.0-16.0) % Plt Count 169 (160-400) X10*3/uL MPV 9.1 L (9.4-12.3) fL Immature Gran % (Auto) 0.5 H (0.0-0.4) % Neut % (Auto) 69.8 (45-73) % Lymph % (Auto) 24.3 (20-40) % [place] % (Auto) 4.9 (2-11) % Eos % (Auto) 0.2 (0-4) % Baso % (Auto) 0.3 (0-2) % Lymph # (Auto) 2.8 (1.2-4.9) X10*3/uL [place] # (Auto) 0.6 (0.1-1.2) X10*3/uL Eos # (Auto) 0.0 (0.0-0.4) X10*3/uL Baso # (Auto) 0.0 (0.0-0.2) X10*3/uL Abs Immat Gran (auto) 0.06 H (0.00-0.03) X10*3/uL Absolute Neuts (auto) 8.0 (2.0-8.3) x10*3/uL Absolute Nucleated RBC 0.000 (0.0-0.012) X10*3/uL Nucleated RBC % (auto) 0.0 (0.0-0.2) /100WBC PT 12.2 (10.9-12.4) SEC INR 1.0 (0.9-1.1) APTT 35.3 (26.0-36.8) SEC Sodium 139 (135-145) mmol/L Potassium 3.9 (3.3-5.1) mmol/L Chloride 107 (96-108) mmol/L Carbon Dioxide 23 (22-29) mmol/L Anion Gap 13 (12-20) BUN 5 L (9-16) mg/dL Creatinine 0.76 (0.5-1.4) mg/dL Estim Creat Clear Calc 89.8 Estimated GFR > 60 Random Glucose 124 H (60-115) mg/dL Calcium 9.3 (8.4-10.2) mg/dL Total Bilirubin 0.4 (0.0-1.0) mg/dL AST 27 (5-31) U/L ALT 23 (0-31) U/L Alkaline Phosphatase 83 (39-117) U/L Troponin I High Sens < 2.7 (<3.5-17.0) ng/L Total Protein 8.1 H (6.5-8.0) g/dL Albumin 4.2 (3.5-5.0) g/dL Lipase 16 (8-78) U/L Beta HCG, Quant < 2 mIU/mL Influenza Type A (PCR) NEGATIVE (Negative) Influenza Type B (PCR) NEGATIVE (Negative) RSV RNA Qual (PCR) NEGATIVE (Negative) SARS-CoV-2 RNA (RT-PCR) NEGATIVE (Negative) Discharge Plan Discharge Clinical Impression: Abdominal pain Patient Disposition: Left W/O Completing Treatment Prescriptions: No Action omeprazole 40 mg capsule,delayed release(DR/EC) 40 mg PO .bid Qty: 60 6RF fluticasone furoate-vilanterol [Breo Ellipta] 200-25 mcg/dose blister with device 1 inh inhalation DAILY 30 Days Qty: 1 6RF Incruse Ellipta 62.5 mcg/actuation blister with device 1 inh inhalation DAILY 30 Days Qty: 1 6RF docusate sodium [Stool Softener] 100 mg capsule 200 mg PO BEDTIME Qty: 60 5RF sumatriptan succinate [Imitrex] 50 mg tablet 50 mg PO Q2H PRN (Reason: migraine headache) Qty: 10 0RF Rx Instructions: do not exceed 2 doses per 24 hrs sxdpptcpov-mjjcqbhipfjdn-bvbh 50-325-40 mg tablet 1 tab PO Q6H PRN (Reason: haeadace) Qty: 20 0RF ondansetron 4 mg tablet,disintegrating 4 mg PO Q6-8H PRN (Reason: nausea and vomiting) Qty: 7 0RF olmesartan 20 mg tablet 20 mg PO DAILY Biktarvy 50-200-25 mg tablet 1 tab PO DAILY sumatriptan succinate 50 mg tablet 50 mg PO Q8H PRN (Reason: migraine) (DME) blood pressure test kit-large Kit See Rx Instructions .ROUTE .MEDSUPPLY Qty: 1 Rx Instructions: As directed rosuvastatin 20 mg tablet 20 mg PO BEDTIME atovaquone 750 mg/5 mL suspension 750 mg PO BID quetiapine 400 mg tablet 400 mg PO BEDTIME chlorthalidone 25 mg tablet 25 mg PO QAM calcium polycarbophil [FiberCon] 625 mg tablet 1,250 mg PO DAILY 30 Days Qty: 60 3RF Discharge Date/Time: 04/17/24 22:46
[2024-04-17 16:08] LABS: MANUAL DIFF FLAG NO
[2024-04-17 16:15] LABS: Prothrombin Time 12.2 SEC (10.9-12.4)
[2024-04-17 16:17] LABS: Basophils Percent Auto 0.3 % (0-2); Eosinophils Percent Auto 0.2 % (0-4); Hematocrit 41.2 % (37.0-47.0); Hemoglobin 14.3 g/dl (12.0-16.0); Imm Gran Abs Auto 0.06 X10*3/uL (0.00-0.03); Imm Gran Pct Auto 0.5 % (0.0-0.4); Lymphocytes Absolute Auto 2.8 X10*3/uL (1.2-4.9); Lymphocytes Percent Auto 24.3 % (20-40); Mean Corpuscular HGB Conc 34.7 g/dl (31.0-35.0); Mean Corpuscular Hemoglobin 32.4 pg (27.0-33.0); Mean Corpuscular Volume 93.4 fL (80.0-98.0); Mean Platelet Volume 9.1 fL (9.4-12.3); Monocytes Absolute Auto 0.6 X10*3/uL (0.1-1.2); Monocytes Percent Auto 4.9 % (2-11); Neutrophils Percent Auto 69.8 % (45-73); Platelet Count 169 X10*3/uL (160-400); Red Blood Count 4.41 X10*6/uL (4.20-5.50); Red Cell Distribution Width 14.2 % (11.0-16.0); White Blood Count 11.4 X10*3/uL (4.8-10.8)
[2024-04-17 16:18] LABS: Partial Thromboplastin Time 35.3 SEC (26.0-36.8)
[2024-04-17 16:32] LABS: Alanine Aminotransferase 23 U/L (0-31); Albumin Level 4.2 g/dL (3.5-5.0); Anion Gap 13 (12-20); Aspartate Amino Transferase 27 U/L (5-31); Bilirubin Total 0.4 mg/dL (0.0-1.0); Blood Urea Nitrogen 5 mg/dL (9-16); Calcium 9.3 mg/dL (8.4-10.2); Carbon Dioxide 23 mmol/L (22-29); Chloride 107 mmol/L (96-108); Creatinine Clr Calc Pharmacy 89.8; Estimated Glomerular Filt Rate > 60; Glucose Random 124 mg/dL (60-115); HCG Quantitative < 2 mIU/mL; Lipase 16 U/L (8-78); Potassium 3.9 mmol/L (3.3-5.1); Sodium 139 mmol/L (135-145); Total Protein 8.1 g/dL (6.5-8.0)
[2024-04-17 16:37] LABS: Troponin-I High Sensitivity < 2.7 ng/L (<3.5-17.0)
[2024-04-17 16:50] LABS: Influenza A PCR NEGATIVE (Negative); Influenza B PCR NEGATIVE (Negative); Resp Syncy Virus RNA Qual PCR NEGATIVE (Negative); SARS COV2 PCR INHOUSE NEGATIVE (Negative)
[2024-04-17 17:10] LABS: Alkaline Phosphatase 83 U/L (39-117)
--- OUTSIDE RECORDS SUMMARY | 2024-04-17 22:47 | XMS_ITS | Clinical Summary ---
Author Organization [facility] Address [address] [place] [address] Care Team Providers Care Wind Turbine Electrical Engineer Name Role Phone Pcp, [facility] Primary Care Provider Unavailabl e Source Comments PLEASE NOTE, if this patient is a minor, it may be UNLAWFUL to discuss sensitive information that is contained in these records (such as FAMILY PLANNING, MENTAL HEALTH or SUBSTANCE ABUSE) with the minor patient's parent or other person without the patient's specific authorization.BURT Allergies Active Allergy Reactions Criticality Noted Date Comments Hydrocodone 04/22/2016 Hydrocodone-Acetaminophen Hives,Rash Low 09/27/2017 Medications cyanocobalamin 1,000 mcg tablet Take 1 Tablet by mouth once daily 2 Active sulfamethoxazol e-trimethoprim (BACTRIM DS) 800-160 mg per tablet Take 1 Tablet by mouth once daily 2 Active lisinopriL 20 mg tablet Take 1 Tablet by mouth nightly at bedtime 2 Active loperamide (IMODIUM A-D) 2 mg capsule Take 1 Capsule by mouth 4 (four) times daily as needed 0 Active rosuvastatin (CRESTOR) 20 mg tablet Take 1 Tablet by mouth once daily 2 Active albuterol HFA 90 mcg/actuation inhaler Inhale 2 Puffs into the lungs every 4 (four) hours as needed 3 Active CABENUVA 600 mg/3 mL- 900 mg/3 mL spER Inject 6 mL into the muscle every 8 (eight) weeks Active fiber (FIBERCON) 625 mg tablet Take 2 Tablets by mouth once daily 3 Active chlorthalidone (HYGROTEN) 25 mg tablet Take 25 mg by mouth every morning Active VITAMIN D3 10 mcg (400 unit) tablet Take 400 Units by mouth once daily 4 Active STOOL SOFTENER 100 mg capsule Take 200 mg by mouth daily. Active BREO ELLIPTA 200-25 mcg/dose Inhale 1 Puff into the lungs daily At same time Active ibuprofen 800 mg tablet Take 800 mg by mouth every 8 (eight) hours 4 Active olmesartan (BENICAR) 40 mg tablet Take 40 mg by mouth once daily Active omeprazole (PRILOSEC) [address] capsule Take 40 mg by mouth every morning before breakfast 3 Active WEGOVY 0.25 mg/0.5 mL pnij Inject 0.25 mg into the skin once a week Active SUMAtriptan succinate (IMITREX) 50 mg tablet Take 50 mg by mouth 1 (one) time as needed TAKE 1 TABLET BY MOUTH AT ONSET OF MIGRAINE. MAY REPEAT ONCE AFTER 2 HOURS IF NEEDED. DO NOT EXCEED 4 TABLETS PER 24 HOURS. 3 Active INCRUSE ELLIPTA 62.5 mcg/actuation dsdv Inhale 1 Puff into the lungs daily. Same time Active cloNIDine (CATAPRES) 0.1 mg tabletIndicatio ns:Generalized anxiety disorder Take 1 Tablet by mouth 2 (two) times daily for 30 days 60 Tablet 5 04/21/19 25 Active QUEtiapine 150 mg tabIndications: Severe recurrent major depression w/psychotic features, mood-congruent (HCC-CMS) Take 1 Tab PO nightly. 30 Tablet 5 Active cloNIDine (CATAPRES) 0.1 mg tabletIndicatio ns:Generalized anxiety disorder Take 1 Tablet by mouth 2 (two) times daily for 30 days 60 Tablet 5 03/22/19 25 Discontinu ed(Reorder (E-Cancel Not Sent)) perphenazine 2 mg tabletIndicatio ns:Severe recurrent major depression w/psychotic features, mood-congruent (HCC-CMS) Take 1 Tablet by mouth 2 (two) times daily for 7 days, THEN 0.5 Tablets 2 (two) times daily for 7 days. Then STOP. 21 Tablet 5 03/22/19 25 Discontinu ed(Therapy completed/ Not needed) QUEtiapine 150 mg tabIndications: Severe recurrent major depression w/psychotic features, mood-congruent (HCC-CMS) Take 1 Tab PO nightly. 15 Tablet 5 03/22/19 25 Discontinu ed(Reorder (E-Cancel Not Sent)) Active Problems Problem Noted Date Diagnosed Date Cervical stenosis (uterine cervix) 12/22/2023 History of cervical dysplasia 12/22/2023 HIV carrier ([facility]) 12/22/2023 FH: total abdominal hysterec prachi and bilateral salpingo-oophorectomy 08/17/2023 Severe recurrent major depre ssion w/psychotic features, mood-congruent ([facility]) 06/07/2023 Overview (12/29/2023): Patient presents with a complex psychiatric history including mood disorder with psychotic features, PTSD, and anxiety disorder, complicated by history of substance use disorder and significant trauma. Current symptoms appear exacerbated by discontinuation of Seroquel, however, I will continue to optimize perphenazine to manage psychosis. Last Assessment & Plan: PHQ9, WILLIAM-7 PHQ9: 27 GAD7: 21 STAGES OF CHANGE PREPARATION PLAN: (check all that apply) Behavioral Health Integration Plan Internal Follow up with [facility] 06/08 @ 11am Rule Out Diagnoses n/a Behavioral Health Diagnoses At this time Ishmael meets criteria for Visit Diagnoses: Problem List Items Addressed This Visit Generalized anxiety disorder PTSD (post-traumatic stress disorder) Cocaine abuse ([facility]) Severe major depression ([facility]) Assessment & Plan (03/22/2024 4:09 PM EST): Assessment: reports improved mood since stopping Perphenazine Plan Continue Seroquel to 150 mg nightly Follow- up in 4 weeks Monitor for auditory hallucinations and mood symptoms Assessment & Plan (03/08/2024 12:38 PM EST): Assessment: improving, no rebound AH, tolerating cross titration Plan Reduce Perphenazine to 2mg BID x 7 days then 0.5 tab BID x 7 days then STOP Increase Seroquel to 150 mg nightly Follow- up in two weeks Monitor for auditory hallucinations and mood symptoms Assessment & Plan (02/23/2024 2:45 PM EST): Assessment and Plan: Mood is depressed, irritable, self isolative, poor sleep and anhedonia, AV did resolve. Cross titrate perphenazine to 4mg three times daily to Seroquel Continue Perphenazine as ordered for 7 days Start Seroquel 50 mg for 4 days then then increase to 100 mg Starting day 8 take Perphenazine 4 mg in the morning and 0.5 tab at HS Follow- up in two weeks Stop Trazodone 50 mg PRN for sleep Monitor for auditory hallucinations and mood symptoms Assessment & Plan (12/29/2023 1:41 PM EDT): Assessment and Plan: Mood/Psychosis/Sleep Increase perphenazine to 4mg three times daily Start Trazodone 50 mg PRN for sleep Monitor for auditory hallucinations and mood symptoms Dysplasia of cervix, high grade DENISE 2 05/26/2023 Overview (12/22/2023): Last Assessment & Plan: Post surgery Rectal screening Pap done today. Severe obesity ([facility]) 05/15/2023 Periodontal disease 08/20/2022 Symptomatic irreversible pulpitis 08/20/2022 History of cocaine use 05/25/2022 Overview (12/22/2023): Last Assessment & Plan: Continue Clonidine 0.1 mg BID. F/U with [facility] and cocaine support group. Dental caries 05/21/2022 Health care maintenance 04/09/2022 Overview (12/22/2023): Pap: 12/2021 NIL, HPV +, referred to TELECOMMUNICATIONS SWITCH TECHNICIAN for colpo 02/2022- DENISE II, tx w/ cold knife cone 12/2022 ASCUS HPV +; ECC negative-->S/p YEYO. Needs yearly pap Anal pap: Needs yearly pap-->was followed by [facility] TELECOMMUNICATIONS SWITCH TECHNICIAN. Need records. Message sent to Infectious Disease to follow up Mammogram: 06/2023, Bi-rads 1 BMD: Routine age 66 CRC: 12/2022-poor prep repeat done 07/2023. Need records. Repeat 1 year per patient STI screening: Hx of syphilis dx/tx 2018 Last Assessment & Plan: Updated mammogram ordered today Discuss anal pap screening at follow up Declines flu/covid vaccine PTSD (post-traumatic stress disorder) 04/05/2022 Overview (12/22/2023): Last Assessment & Plan: With hx multiple traumas, multisubstance abuse. Presenting symptoms included constant frightening hallucinations: auditory commands; visual of person in the room. Poor sleep with nightmares. Hypervigilance. She had been doing very well without mood swings or hallucinations, and sleeping well with Seroquel 200 mg TID, plus Seroquel 400 mg at bedtime. Also Clonidine 0.1 mg BID for anxiety and cocaine cravings. Unfortunately she became very concerned about excessive weight gain which she attributed to the Seroquel, therefore stopped taking it abruptly a week ago and symptoms have recurred. She will be referred urgently to new [facility] Psychiatric prescriber for first appt within 1-2 months, but should not be without medication during that time. Therefore she will be started on Perphenazine 4 mg BID. Explained that this was a relatively low dose and would likely not be sufficient, but can be changed or adjusted by new provider. Continue Clonidine 0.1 mg BID. She is aware that appts will be via televisit and that the new provider will not be an employee of [facility]. Therefore she gives consent to share PHI. She will also F/U with [facility] Clinician as usual. Call [facility] with any issues or concerns. All her questions were answered and I have wished her well. She agrees with the plan. Assessment & Plan (03/22/2024 4:10 PM EST): A: Hypervigilance. P: Continue therapy Assessment & Plan (03/08/2024 12:41 PM EST): A: Hypervigilance. P: Continue therapy Assessment & Plan (12/29/2023 1:54 PM EDT): A: Poor sleep. Hypervigilance. P: Continue therapy Low vitamin B12 level 04/30/2021 Hyperlipemia 04/30/2021 Body mass index (BMI) of 21.0 to 21.9 in adult 0 04/28/2021 Encounter for screening exam ination for sexually transmitted disease 04/28/2021 Counseling on health promotion and disease preve ntion 04/28/2021 Encounter for dietary counseling and surveillanc e 04/28/2021 Exercise counseling 04/28/2021 General counseling and advice for contraceptive management 04/28/2021 Hypertension 04/28/2021 High risk HPV infection 04/01/2021 Overview (12/22/2023): COLPOSCOPY FLOWSHEET HIV Status Positive 03/27/21: VL 64,827 CD4: 719 Date PAP Colpo Biopsy ECC 03/19/21 NILM, hrHPV pos (16 neg, 18/45 pos) [ ] colposcopy - no show 07/02/21 final colpo letter sent PID (acute pelvic inflammatory disease) 03/19/19 Intractable abdominal pain 03/18/2021 Body mass index (BMI) of 23.0 to 23.9 in adult 0 11/01/2019 Chronic diarrhea 11/01/2019 Elevated LFTs 11/01/2019 Abnormal glucose 11/01/2019 Elevated cholesterol 11/01/2019 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

per [facility]. [facility] no record found and should be treated.

RN and HIV coordinator unable to reach pt by phone. Positive depression screening 08/04/2018 Tobacco dependence syndrome 03/08/2012 Overview (12/22/2023): ?? Decreased from 3 PPD from 1 PPD ?? Patches at home Last Assessment & Plan: Patches if needed. Patient precontemplative. Cessation tobacco health benefits discussed. Human immunodeficiency virus infection ([facility]) 08/04/2011 Overview (12/22/2023): ?? Followed by [facility] ID ?? Well controlled with Biktarvy ?? HBV immune 12/2021 Last Assessment & Plan: She is doing well. She has been taking Cabenuva and received it today. She has been undetectable viral load 04/2023. Would continue Cabenuva,which was given with 2 inch needle today. Await viral load for HIV. See as scheduled. Check CD4 count and viral load every 4-6 month HIV (human immunodeficiency virus infection) 03/2008 Overview (01/04/2022): Not been by provider today Human immunodeficiency virus [HIV] disease (diagnosed 2008, prior on odefsey; HSX) 03/07/2008 Generalized anxiety disorder 03/07/1958 Overview (12/22/2023): Assessment and Plan: Ishmael was engaged with active reflective listening and open-ended questions. Assessed symptoms, risks, and social supports with direct questions. Discussed current symptoms intensity and frequency. Emotions were normalized and validated. She identified caring for her nephews as coping mechanisms and support from her family as protective factors. Provided psychoeducation around Coping Mechanisms about depression and anxiety. Discussed OP therapy she agreed top referral. Provided education around integrated medicine and the options of follow up BE's as needed. Provided contact information should questions or concerns arise. Plan: Ishmael will engage in effective coping mechanisms discussed. Will be referred for Ind. Therapy and will continue to engage in Med. Management. Patient with lack of motivation, hopelessness, sleep disturbance, lack of energy, over eating, feeling like a failure, trouble concentrating, passive thoughts, persistent worry, unable to relax, unable to seat still, irritability fear of something bad would happens. Hx of AVH, Hx of SI, by cutting, taking pills, drinking perfume bottle. He denies SI, HI, or self-harm, in the context of living with parents, not been working and struggling financially. Patient will benefit from Ind. Therapy. At this time Ishmael Guadarrama meets criteria for Visit Diagnoses: Problem List Items Addressed This Visit Other Mixed anxiety and depressive disorder Cocaine abuse (CMS/HCC) Patient ready to address current needs Yes Strengths include Ishmael is in action stage of change and her motivation will serve as treatment engagement. PLAN: 1. Follow up with [facility]: Recommended for follow-up: During Id appts 2. Patient goal is to become mentally stable and sober 3. Behavioral Recommendations a. Ind. Therapy b. Engagement in ID Clinic c. Coping Mechanisms to address sxs. Last Assessment & Plan: She is seeing counseling today. She is not suicidal. Assessment & Plan (03/22/2024 4:09 PM EST): A: Symptoms under reasonable control P: Continue clonidine twice daily Monitor effectiveness for anxiety and cravings Assessment & Plan (12/29/2023 1:44 PM EDT): Anxiety/Irritability: Continue clonidine twice daily Monitor effectiveness for anxiety and cravings Migraine Asthma Mood disorder Encounters Date Type Department Care Team Description 03/22/2024 12:30 PM EST Behavioral Health Visit [facility] [address] [place] [address] [place] [phone] Kavya Martinez APRN Severe recurrent major depression w/psychotic features, mood-congruent (HCC-CMS) (Primary Dx); Generalized anxiety disorder; PTSD (post-traumatic stress disorder) 03/08/2024 12:00 PM EST Behavioral Health Visit [facility] [address] [place] [address] [place] [phone] Kavya Martinez APRN PTSD (post-traumatic stress disorder) (Primary Dx); Generalized anxiety disorder; Severe recurrent major depression w/psychotic features, mood-congruent (HCC-CMS) 02/23/2024 1:00 PM EST Behavioral Health Visit [facility] [address] [place] [phone] Kavya Martinez APRN Severe recurrent major depression w/psychotic features, mood-congruent (HCC-CMS) (Primary Dx); Generalized anxiety disorder from Last 3 Months Immunizations Name Administration Dates Next Due Flu, Preservative Free 11/12/2021 Hep A, adult 11/20/2009,09/01/2009 Hep B, Adult/Adol (ENERGIX/RECOMBIVAX) 2,11/20/2009,09/01/2009 INFLUENZA, SEASONAL, INJECTABLE 12/27/2013,11/24 MANOLO COVID-19 VACCINE 08/29/2020 MENINGOCOCCAL MCV4P (MENACTRA) 05/26/2017 MMR (MMR II/Priorix) 04/13/2012 PNEUMOCOCCAL CONJUGATE PCV 13 12/27/2013 PNEUMOCOCCAL CONJUGATE PCV 20 (Prevnar) 01/31/20 23 PNEUMOCOCCAL POLYSACCHARIDE PPV23 05/26/2017, [facility] State Funded Flu Vaccine 01/10/2013, 012 TDAP 02/04/2022,10/28/2011 Td(adult),2 Lf tetanus toxoi d,preservative free 09/01/2009 Family History Medical History Relation Name Comments No Known Problems Brother No Known Problems Mother Relation Name Status Comments Brother Alive Daughter has four kids t maria [place]ia away from [facility] 24 years ago, no connection to them. Father Mother Alive Social History Tobacco Use Types Packs/Day Years Used Date Smoking Tobacco: Every Day Cigarettes 1.5 32.1 Started: 1992 Smokeless Tobacco: Never Tobacco Cessation:Ready to Q uit: No; Counseling Given: Yes Alcohol Use Standard Drinks/Week Comments Never 0 (1 standard drink = 0.6 oz pur e alcohol) Social Connections Answer Date Recorded Connectedness 0 11/23/2023 Financial Resource Strain Answer Date R ecorded Financial Resource Strain 0 2021 Stress Answer Date Recorded Stress 0 01/04/2022 Physical Activity Answer Date Recorded Physical Activity 0 01/04/2022 Food Insecurity Answer Date Recorded Food 0 12/01/2023 Transportation Needs Answer Date Record ed Transportation 0 01/04/2022 Housing Stability Answer Date Recorded Housing 0 01/04/2022 Safety and Environment Answer Date Shlomo rded Safety 0 01/04/2022 Utilities Answer Date Recorded Utilities 0 01/04/2022 Employment Answer Date Recorded Stress 0 11/23/2023 Comments Unknown Sex and Gender Information Value Date Recorded Sex Assigned at Not on file Legal Sex Female 8:51 PM PDT Gender Identity Female 12/23/2021 8:51 PM PDT Sexual Orientation Choose not to disclose 2021 8:51 PM PDT Last Filed Vital Signs Vital Sign Reading Time Taken Comments Blood Pressure 153/89 04/28/2021 10:10 AM PST Pulse 103 04/28/2021 10:10 AM PST Temperature 36.4 ??C (97.6 ??F) 04/28/2021 10:[address] Respiratory Rate - - Oxygen Saturation 98% 11/01/2019 5:39 AM PDT Inhaled Oxygen Concentration - - Weight 47.8 kg (105 lb 6 oz) 04/28/2021 10:10 AM PST Height 147.4 cm (4' 10.05 ) 04/28/2021 10:10 AM PST Body Mass Index 21.99 04/28/2021 10:10 AM PST Plan of Treatment Upcoming Encounters Date Type Department Care Team ([facility] st Contact Info) Description 04/19/2024 1:30 PM EST Behavioral Health Visit [facility] [address] [place] [phone] Kavya Martinez, SHIRA [address] [facility] [place] [phone] Health Maintenance Due Date Last Done Comments Depression Monitoring 1976 LTBI Screening (#1) 1976 Relationship Safety Screening/Counseling 09/23/1991 Imm-Zoster, Recombinant (1 of 2) 09/23/1995 Imm-MMR (2 of 2 - Risk 2-dos e series) 05/11/2012 04/13/2012 Breast Cancer Screening (Mammogram) 2016 Imm-Meningococcal (2 - Risk 2-dose series) 07/21/2017 05/26/2017 CT Colonography 2021 Colonoscopy 2021 Colorectal Cancer Screening 2021 FIT/gFOBT 2021 Fecal DNA 2021 Flexible Sigmoidoscopy 2021 [id number] ( season) 2023 02/03/2022, 12/03/2021, 11/12/2021, Additional history exists Imm-Influenza (#1) 2023 11/12/2021, 1 , 01/10/2013, Additional history exists Alcohol and Drug Screen 03/07/2024 Lipid Screening 05/18/2024 05/19/2023, 04/08, 11/01/2019 Diabetes Screening 08/16/2024 08/17/2023, 0 04/28/2021, 04/28/2021, Additional history exists Tobacco Cessation Counseling (#1) 12/21/2024 Imm-DTaP/Tdap/Td (3 - Td or Tdap) 02/05/2032 02/04/2022, 10/28/2011, 09/01/2009 Imm-Hepatitis A Discontinued 11/20/2009, 09/01/2009 Imm-Hepatitis B Completed 07/01/2011, 11/05, 09/01/2009 Hepatitis C Screening Completed 11/01/2019 Imm-Pneumococcal Completed 04/06/2022, , 12/27/2013, Additional history exists Procedures Procedure Name Priority Date/Time Associated Diagnosis Comments A1C ROUTINE -GLYHB Routine 04/28/2021 10 :40 AM PST LIPID PANEL Routine 04/28/2021 10:40 AM PST HEPATITIS C ANTIBODY-HCVAB Routine 11/01/2019 5:24 AM PDT from Last 3 Months or Most Recently Relevant to Health Maintenance Results * (ABNORMAL) LIPID PANEL (04/28/2021 10:40 AM PST) TRIGLYCERIDES 68 0 - 149 mg/dL 04/30/2021 3:10 AM PST DATA CONVERSION LDL CHOL CALC (NIH) 53 0 - 99 mg/dL 04/30/2021 3:10 AM PST DATA CONVERSION HDL CHOLESTEROL 37(A) >39 mg/dL 3:10 AM PST DATA CONVERSION CHOLESTEROL, TOTAL 105 100 - 199 mg/dL 04/30/2021 3:10 AM PST DATA CONVERSION VLDL CHOLESTEROL JOSE L 15 5 - 40 mg/dL 04/30/2021 3:10 AM PST DATA CONVERSION 04/28/2021 10:4 0 AM PST [facility] Provider Default HIE LAB Final Resu lt DATA CONVERSION * (ABNORMAL) A1C ROUTINE -GLYHB (04/28/2021 10:40 AM PST) HEMOGLOBIN A1C 5.7(A) 4.8 - 5.6 % 04/29/2021 3:10 AM PST DATA CONVERSION 04/28/2021 10:4 0 AM PST [facility] Provider Default HIE LAB Final Resu lt DATA CONVERSION * HEPATITIS C ANTIBODY-HCVAB (11/01/2019 5:24 AM PDT) HEPATITIS C ANTIBODY NON-REACTI VE NON-REACTI VE 11/03/2019 11:00 AM PDT DATA CONVERSION SIGNAL TO CUT-OFF 0.03 <1.00 11/03/2019 11:00 AM PDT DATA CONVERSION 11/01/2019 5:24 AM PDT [facility] Provider Default HIE LAB Final Resu lt DATA CONVERSION from Last 3 Months or Most Recently Relevant to Health Maintenance Insurance [place] MEDICA[place] [facility] Care Teams Wind Turbine Electrical Engineer Relationship Specialty Start Date End Date Pcp, [facility] PCP - General 11/14/23
== END 2024-04-17 22:46 | disposition left against medical advice (07) ==
LOC: HO.ED 22:45
PROVIDERS: Physician Assistant; Emergency Provider Emergency Medicine; PCP Registered Nurse
DX: R06.02 Shortness of breath (principal); R42 Dizziness and giddiness; R11.2 Nausea with vomiting, unspecified; R10.2 Pelvic and perineal pain; F17.210 Nicotine dependence, cigarettes, uncomplicated; Z03.818 Encounter for observation for suspected exposure to other biological agents ruled out; Z79.899 Other long term (current) drug therapy
CPT/HCPCS: 0241U; 36415; 71045; 80053; 83690; 84484; 84702; 85025; 85610; 85730; 93005; 99281; 99283

== ENCOUNTER → 2024-04-17 15:37 | Outpatient (BNV) | payer MEDICAID, SELFPAY | PROVIDERS: Emergency Provider Emergency Medicine; PCP Registered Nurse; Visit Provider Internal Medicine Cardiovascular Disease | DX: R07.9 Chest pain, unspecified (principal); R94.31 Abnormal electrocardiogram [ECG] [EKG] | CPT/HCPCS: 93010 ==

== ENCOUNTER → 2024-04-17 15:39 | Outpatient (BNV) | payer MEDICAID, SELFPAY | PROVIDERS: PCP Registered Nurse; Visit Provider Radiology Diagnostic Radiology | DX: R06.02 Shortness of breath (principal) | CPT/HCPCS: 71045 ==

== ENCOUNTER 2024-05-03 13:15 | Outpatient (REF) | payer MEDICAID, SELFPAY ==
--- OUTSIDE RECORDS SUMMARY | 2024-05-03 15:46 | XMS_ITS | Clinical Summary ---
Author Organization [facility] Address [address] [place] [address] Care Team Providers Care Static Balancer Name Role Phone Pcp, Non-[facility] Primary Care [...] into the lungs daily. Same time Active QUEtiapine 150 mg tabIndications: Severe recurrent major depression w/psychotic features, mood-congruent ([facility]-CMS) Take 1 Tab PO nightly. 30 Tablet 5 Active cloNIDine (CATAPRES) 0.1 mg tabletIndicatio ns:Generalized anxiety disorder Take 1 Tablet by mouth 2 (two) times daily for 30 days 60 Tablet 5 05/20/19 25 Active cloNIDine (CATAPRES) 0.1 mg tabletIndicatio ns:Generalized anxiety disorder Take 1 Tablet by mouth 2 (two) times daily for 30 days 60 Tablet 5 04/19/19 25 Discontinu ed(Reorder (E-Cancel Not Sent)) QUEtiapine 150 mg tabIndications: Severe recurrent major depression w/psychotic features, mood-congruent (HCC-CMS) Take 1 Tab PO nightly. 30 Tablet 5 04/19/19 25 Discontinu ed(Reorder (E-Cancel Not Sent)) Active Problems Problem Noted Date Diagnosed Date Cervical stenosis (uterine cervix) 12/22/2023 History of cervical dysplasia 12/22/2023 HIV carrier (HCC-CMS) 12/22/2023 FH: total abdominal hysterec prachi and bilateral salpingo-oophorectomy 08/17/2023 Severe recurrent major depre ssion w/psychotic features, mood-congruent ([facility]) 06/07/2023 Overview (12/29/2023): Patient presents with a [...] Health Integration Plan Internal Follow up with [facility] 06/08 @ 11am [place] Out Diagnoses n/a Behavioral Health Diagnoses At this time Ishmael meets criteria for Visit Diagnoses: Problem List Items Addressed This Visit Generalized anxiety disorder PTSD (post-traumatic stress disorder) Cocaine abuse ([facility]) Severe major depression ([facility]) Assessment & Plan (04/19/2024 1:26 PM EST): Assessment: symptoms under control Plan Continue Seroquel to 150 mg nightly Follow- up in 4 weeks Monitor for auditory hallucinations and mood symptoms Assessment & Plan (03/22/2024 4:09 PM EST): [...] Rectal screening Pap done today. Severe obesity (HCC-CMS) 05/15/2023 Periodontal disease 08/20/2022 Symptomatic irreversible pulpitis 08/20/2022 History of cocaine use 05/25/2022 Overview (12/22/2023): Last Assessment & Plan: Continue Clonidine 0.1 mg BID. F/U with [employer] and cocaine support group. Dental caries 05/21/2022 Health care maintenance 04/09/2022 Overview (12/22/2023): Pap: 12/2021 NIL, HPV +, referred to C PROGRAMMER for colpo 02/2022- DENISE II, tx w/ cold knife cone 12/2022 ASCUS HPV +; ECC negative-->S/p YEYO. Needs yearly pap Anal pap: Needs yearly pap-->was followed by [facility] PROGRAMMER. Need records. Message sent to Infectious Disease [...] She will be referred urgently to new [facility] Psychiatric prescriber for first appt within [...] provider will not be an employee of [facility]. Therefore she gives consent to share PHI. She will also F/U with [facility] Clinician as usual. Call [facility] with any issues or concerns. All her questions were answered and I have wished her well. She agrees with the plan. Assessment & Plan (04/19/2024 1:27 PM EST): A: Symptoms under control P: Continue therapy Assessment & Plan (03/22/2024 4:10 PM EST): [...] 08/12/19 Overview (01/04/2022): pt previously resided in [place]

per portillo. [facility] no record found and should be treated.

RN and HIV coordinator unable to reach pt by phone. Positive depression screening 08/04/2018 Tobacco dependence syndrome 03/08/2012 Overview (12/22/2023): ?? Decreased from 3 PPD from 1 PPD ?? Patches at home Last Assessment & Plan: Patches if needed. Patient precontemplative. Cessation tobacco health benefits discussed. Human immunodeficiency virus infection ([facility]) 08/04/2011 Overview (12/22/2023): ?? Followed by [facility] ID ?? Well controlled with Biktarvy [...] treatment engagement. PLAN: 1. Follow up with [facility]: Recommended for follow-up: During Id appts 2. [...] Encounters Date Type Department Care Team Description 04/19/2024 1:30 PM EST Behavioral Health Visit [facility] [address] [place] [phone] Kavya Martinez APRN PTSD (post-traumatic stress disorder) (Primary Dx); Severe recurrent major depression w/psychotic features, mood-congruent (HCC-CMS); Generalized anxiety disorder 03/22/2024 12:30 PM EST Behavioral Health Visit [facility] [address] [place] [phone] Kavya Martinez APRN Severe recurrent major depression w/psychotic features, mood-congruent (HCC-CMS) (Primary Dx); Generalized anxiety disorder; PTSD (post-traumatic stress disorder) 03/08/2024 12:00 PM EST Behavioral Health Visit [facility] [address] [place] [phone] Kavya Martinez APRN PTSD (post-traumatic stress disorder) (Primary Dx); Generalized anxiety disorder; Severe recurrent major depression w/psychotic features, mood-congruent (HCC-CMS) 02/23/2024 1:00 PM EST Behavioral Health Visit [facility] [address] [place] [phone] Kavya Martinez APRN Severe recurrent major depression [...] 13 12/27/2013 PNEUMOCOCCAL CONJUGATE PCV 20 (Prevnar) 04/06/19 23 PNEUMOCOCCAL POLYSACCHARIDE PPV23 05/26/2017, [facility] State Funded Flu Vaccine 01/10/2013, 012 TDAP 02/04/2022,10/28/2011 Td(adult),2 Lf tetanus toxoi d,preservative free 09/01/2009 Family History Medical History Relation Name Comments No Known Problems Brother No Known Problems Mother Relation Name Status Comments Brother Alive Daughter has four kids t aken away from [facility] 24 years ago, no connection to them. Father Mother Alive Social History Tobacco Use Types Packs/Day Years Used Date Smoking Tobacco: Every Day Cigarettes 1.5 32.2 Started: 1992 Smokeless Tobacco: Never Tobacco Cessation:Ready [...] Upcoming Encounters Date Type Department Care Team (Late st Contact Info) Description 05/17/2024 2:00 PM EDT Behavioral Health Visit [facility] [address] [place] [phone] Kavya Martinez, SHIRA [address] [facility] [place] [phone] Health Maintenance Due Date Last Done Comments [...] 2021 Fecal DNA 2021 Flexible Sigmoidoscopy 2021 [id number] ( season) 2023 02/03/2022, 12/03/2021, 11/12/2021, Additional [...] DATA CONVERSION 04/28/2021 10:4 0 AM PST us [facility] Provider Default HIE LAB Final Resu lt DATA CONVERSION * (ABNORMAL) A1C ROUTINE -GLYHB (04/28/2021 10:40 AM PST) HEMOGLOBIN A1C 5.7(A) 4.8 - 5.6 % 04/29/2021 3:10 AM PST DATA CONVERSION 04/28/2021 10:4 0 AM PST [facility] Provider Default HIE LAB Final Resu lt DATA CONVERSION * HEPATITIS C ANTIBODY-HCVAB (11/01/2019 5:24 AM PDT) HEPATITIS C ANTIBODY NON-REACTI VE NON-REACTI VE 11/03/2019 11:00 AM PDT DATA CONVERSION SIGNAL TO CUT-OFF 0.03 <1.00 11/03/2019 11:00 AM PDT DATA CONVERSION 11/01/2019 5:24 AM PDT [facility] Provider Default HIE LAB Final Resu lt Performing Organization Address City/[facility] de Phone Number DATA CONVERSION from Last 3 Months or Most Recently Relevant to Health Maintenance Insurance [place] [facility] [employer] Care Teams Static Balancer Relationship Specialty Start Date End Date Pcp, Non-[facility] PCP - General 11/14/23
--- OUTSIDE RECORDS SUMMARY | 2024-05-03 15:46 | XMS_ITS | Encounter Summary ---
Author Organization [facility] Address [address] [place] [address] Care Team Providers Care Cigar Packer And Picker Name Role Phone Pcp, Non-[facility] Primary Care Provider Unavailabl e Reason for Visit * Reason Comments Follow Up Encounter Details Date Type Department Care Team (Latest Contact Info) Description 04/19/2024 1:30 PM EST Behavioral Health Visit [facility] [address] [place] [phone] Kavya Martinez, INFRASTRUCTURE ADMINISTRATOR [address] [facility] [place] [id number] PTSD (post-traumatic stress disorder) (Primary Dx); Severe recurrent major depression w/psychotic features, mood-congruent (HCC-CMS); Generalized anxiety disorder Social History Tobacco Use Types Packs/Day Years Used Date Smoking Tobacco: Every Day Cigarettes 1.5 32.2 Started: 1992 Smokeless Tobacco: Never Alcohol Use Standard Drinks/Week Comments Never 0 [...] not to disclose 2021 8:51 PM PDT documented as of this encounter Progress Notes * aKvya Martinez APRN - 04/19/2024 1:27 PM ESTAssociated Problem(s): PTSD (post- traumatic stress disorder) A: Symptoms under control P: Continue therapy * Kavya Martinez APRN - 04/19/2024 1:26 PM ESTAssociated Problem(s): Severe recurrent major depression w/psychotic features, mood-congruent (HCC-CMS) Assessment: symptoms under control Plan Continue Seroquel to 150 mg nightly Follow- up in 4 weeks Monitor for auditory hallucinations and mood symptoms * Kavya Martinez APRN - 04/19/2024 1:12 PM EST [place] OFFICE VISIT Name: Ishmael Guadarrama : 1975 PCP: Non-[facility] Pcp ASSESSMENT AND PLAN Problem List Items Addressed This Visit BH/MH Problems Severe recurrent major depression w/psychotic features, mood-congruent (HCC-CMS) (Chronic) Assessment: symptoms under control Plan Continue Seroquel to 150 mg nightly Follow- up in 4 weeks Monitor for auditory hallucinations and mood symptoms Relevant Medications QUEtiapine 150 mg tab Generalized anxiety disorder Relevant Medications cloNIDine (CATAPRES) 0.1 mg tablet PTSD (post-traumatic stress disorder) - Primary A: Symptoms under control P: Continue therapy Follow-up: No follow-ups on file. Kavya Martinez APRN 04/19/2024 1:12 PM EST REASON FOR VISIT No chief complaint on file. HPI/ROS Patient seen for medication follow-up, continues to do well on current regiment, denies any depressive, anxiety or PTSD symptoms, sleep is good, insight is good, denies SI/HI/Plan, denies AVH, thought process is linear, denies mood irritability, appetite is poor, taking Wegovy for weight loss, denies illicit drug use. PHQ No data to display Review of Systems Constitutional: Negative. HENT: Negative. Eyes: Negative. Respiratory: Negative. Cardiovascular: Negative. Breasts: Negative. Gastrointestinal: Negative. Endocrine: Negative. Genitourinary: Negative. Musculoskeletal: Negative. Skin: Negative. Allergic/Immunologic: Negative. Neurological: Negative. Hematological: Negative. Psychiatric/Behavioral: Negative. VITALS: There were no vitals filed for this visit. Physical Exam Neurological: Mental Status: She is alert and oriented to person, place, and time. Psychiatric: Attention and Perception: Attention and perception normal. Mood and Affect: Mood and affect normal. Speech: Speech normal. Behavior: Behavior normal. Behavior is cooperative. Thought Content: Thought content normal. Cognition and Memory: Cognition normal. Judgment: Judgment normal. Visit conducted via Telehealth with video.. Telehealth Provided Other than in Patient's Home. TELEMEDICINE ATTESTATION I verified the patient by the patients name, date of and insurance ID. I disclosed my identity and credentials. I reviewed, as appropriate, relevant history and medical records with the patient. I determined that I could provide the same standard of care and if I determined I could not do that during the telemedicine visit, I directed the patient to seek in person care. I discussed confidentiality rights with the patient. I disclosed my location and discussed the patient location. I discussed how the patient can see a clinician in-person in the event of an emergency or as otherwise needed. . Kavya Martinez APRN 04/19/2024 documented in this encounter Plan of Treatment Upcoming Encounters Date Type Department Care Team ([facility] st Contact Info) Description 05/17/2024 2:00 PM EDT Behavioral Health Visit [facility] [address] [place] [phone] Kavya Martinez APRN [address] [facility] [place] [id number] documented as of this encounter Visit Diagnoses Diagnosis PTSD (post-traumatic stress disorder)- Primary Posttraumatic stress disorder Severe recurrent major depression w/psychotic features, mood-congruent (HCC-CMS) Major depressive disorder, recurrent episode, severe, specified as with psychotic behavior Generalized anxiety disorder documented in this encounter Care Teams Cigar Packer And Picker Relationship Specialty Start Date End Date Pcp, Non-[facility] PCP - General 11/14/23 documented as of this encounter
[2024-05-03 16:48] LABS: Alanine Aminotransferase 42 U/L (0-31); Albumin Level 4.3 g/dL (3.5-5.0); Alkaline Phosphatase 100 U/L (39-117); Anion Gap 16 (12-20); Aspartate Amino Transferase 42 U/L (5-31); Bilirubin Total 0.4 mg/dL (0.0-1.0); Blood Urea Nitrogen 5 mg/dL (9-16); Calcium 9.4 mg/dL (8.4-10.2); Carbon Dioxide 18 mmol/L (22-29); Chloride 109 mmol/L (96-108); Estimated Glomerular Filt Rate > 60; Glucose Random 98 mg/dL (60-115); Potassium 3.9 mmol/L (3.3-5.1); Sodium 139 mmol/L (135-145); Total Protein 8.4 g/dL (6.5-8.0)
== END 2024-05-03 13:16 | disposition home or self-care (01) ==
LOC: HO.HHCL 13:15
PROVIDERS: Visit Provider Internal Medicine
DX: Z21 Asymptomatic human immunodeficiency virus [HIV] infection status (principal)
CPT/HCPCS: 36415; 80053; 82550

== ENCOUNTER 2024-05-14 09:18 | Outpatient (REF) | payer MEDICAID, SELFPAY ==
--- OUTSIDE RECORDS SUMMARY | 2024-05-14 09:54 | XMS_ITS | Clinical Summary ---
Author Organization [facility] Address [address] [place] [address] Care Team Providers Care Aqueduct And Reservoir Keeper Name Role Phone Pcp, Non-[facility] Primary Care [...] Severe recurrent major depression w/psychotic features, mood-congruent ([facility]-CMS) Take 1 Tab PO nightly. 30 Tablet [...] recurrent major depre ssion w/psychotic features, mood-congruent ([facility]) 06/07/2023 Overview (12/29/2023): Patient presents with a [...] Health Integration Plan Internal Follow up with [facility] 06/08 @ 11am [place] Out Diagnoses n/a Behavioral Health Diagnoses At this time Ishmael meets criteria for Visit Diagnoses: Problem List Items Addressed This Visit Generalized anxiety disorder PTSD (post-traumatic stress disorder) Cocaine abuse ([facility]) Severe major depression ([facility]) Assessment & Plan (04/19/2024 1:26 PM EST): [...] Continue Clonidine 0.1 mg BID. F/U with [employer] and cocaine support group. Dental caries 05/21/2022 Health care maintenance 04/09/2022 Overview (12/22/2023): Pap: 12/2021 NIL, HPV +, referred to GANG DRILL PRESS OPERATOR for colpo 02/2022- DENISE II, tx w/ cold knife cone 12/2022 ASCUS HPV +; ECC negative-->S/p YEYO. Needs yearly pap Anal pap: Needs yearly pap-->was followed by [facility] G[facility] DRILL PRESS OPERATOR. Need records. Message sent to Infectious Disease [...] She will be referred urgently to new [facility] Psychiatric prescriber for first appt within [...] provider will not be an employee of [facility]. Therefore she gives consent to share PHI. She will also F/U with [facility] Clinician as usual. Call [facility] with any issues or concerns. All [...] 08/12/19 Overview (01/04/2022): pt previously resided in [place]

per portillo. [facility] no record found and should be treated.

RN and HIV coordinator unable to reach pt by phone. Positive depression screening 08/04/2018 Tobacco dependence syndrome 03/08/2012 Overview (12/22/2023): ?? Decreased from 3 PPD from 1 PPD ?? Patches at home Last Assessment & Plan: Patches if needed. Patient precontemplative. Cessation tobacco health benefits discussed. Human immunodeficiency virus infection ([facility]) 08/04/2011 Overview (12/22/2023): ?? Followed by [facility] ID ?? Well controlled with Biktarvy [...] EST Behavioral Health Visit [facility] [address] [place] [phone] Kavya Martinez APRN PTSD (post-traumatic stress disorder) (Primary Dx); Severe recurrent major depression w/psychotic features, mood-congruent (HCC-CMS); Generalized anxiety disorder 03/22/2024 12:30 PM EST Behavioral Health Visit [facility] [address] [place] [phone] Kavya Martinez APRN Severe recurrent major depression w/psychotic features, mood-congruent (HCC-CMS) (Primary Dx); Generalized anxiety disorder; PTSD (post-traumatic stress disorder) 03/08/2024 12:00 PM EST Behavioral Health Visit [facility] [address] [place] [phone] Kavya Martinez APRN PTSD (post-traumatic stress disorder) (Primary Dx); Generalized anxiety disorder; Severe recurrent major depression w/psychotic features, mood-congruent (HCC-CMS) 02/23/2024 1:00 PM EST Behavioral Health Visit [facility] [address] [place] [phone] Kavya Martinez APRN Severe recurrent major depression [...] (Prevnar) 04/06/19 23 PNEUMOCOCCAL POLYSACCHARIDE PPV23 05/26/2017, [facility] State Funded Flu Vaccine 01/10/2013, 012 TDAP 02/04/2022,10/28/2011 Td(adult),2 Lf tetanus toxoi d,preservative free 09/01/2009 Family History Medical History Relation Name Comments No Known Problems Brother No Known Problems Mother Relation Name Status Comments Brother Alive Daughter has four kids t aken away from [facility] 24 years ago, no connection to them. [...] EDT Behavioral Health Visit [facility] [address] [place] [phone] Kavya Martinez, SHIRA [address] [facility] [place] [address] Health Maintenance Due Date Last Done Comments [...] 2021 Fecal DNA 2021 Flexible Sigmoidoscopy 2021 [id number] ( season) 2023 02/03/2022, 12/03/2021, 11/12/2021, Additional [...] CONVERSION 04/28/2021 10:4 0 AM PST us [facility] Provider Default HIE LAB Final Resu lt DATA CONVERSION * (ABNORMAL) A1C ROUTINE -GLYHB (04/28/2021 10:40 AM PST) HEMOGLOBIN A1C 5.7(A) 4.8 - 5.6 % 04/29/2021 3:10 AM PST DATA CONVERSION 04/28/2021 10:4 0 AM PST [facility] Provider Default HIE LAB Final Resu lt DATA CONVERSION * HEPATITIS C ANTIBODY-HCVAB (11/01/2019 5:24 AM PDT) HEPATITIS C ANTIBODY NON-REACTI VE NON-REACTI VE 11/03/2019 11:00 AM PDT DATA CONVERSION SIGNAL TO CUT-OFF 0.03 <1.00 11/03/2019 11:00 AM PDT DATA CONVERSION 11/01/2019 5:24 AM PDT [facility] Provider Default HIE LAB Final Resu lt Performing Organization Address City/[facility] de Phone Number DATA CONVERSION from Last 3 Months or Most Recently Relevant to Health Maintenance Insurance [place] MEDICAID [facility] [employer] Care Teams Aqueduct And Reservoir Keeper Relationship Specialty Start Date End Date Pcp, Non-[facility] PCP - General 11/14/23
--- OUTSIDE RECORDS SUMMARY | 2024-05-14 09:54 | XMS_ITS | Encounter Summary ---
Author Organization [facility] Address [address] [place] [address] Care Team Providers Care Disability Rater Name Role Phone Pcp, Non-[facility] Primary Care Provider Unavailabl e Reason for Visit * Reason Comments Follow Up Encounter Details Date Type Department Care Team (Latest Contact Info) Description 04/19/2024 1:30 PM EST Behavioral Health Visit [facility] [address] [place] [phone] Kavya Martinez, SUPERVISOR UNDERWRITING CLERKS [address] [facility][1] [place] [id number] PTSD (post-traumatic stress disorder) (Primary Dx); Severe [...] as of this encounter Progress Notes * Kavya Martinez APRN - 04/19/2024 1:27 PM ESTAssociated [...] Martinez APRN - 04/19/2024 1:12 PM EST [facility] OFFICE VISIT Name: Ishmael Guadarrama : 1975 PCP: Non-[facility] Pcp ASSESSMENT AND PLAN Problem List [...] Upcoming Encounters Date Type Department Care Team ([facility] st Contact Info) Description 05/17/2024 2:00 PM EDT Behavioral Health Visit [facility] [address] [place] [phone] Kavya Martinez APRN [address] [facility][1] [place] [id number] documented as of this encounter Visit Diagnoses Diagnosis PTSD (post-traumatic stress disorder)- Primary Posttraumatic stress disorder Severe recurrent major depression w/psychotic features, mood-congruent (HCC-CMS) Major depressive disorder, recurrent episode, severe, specified as with psychotic behavior Generalized anxiety disorder documented in this encounter Care Teams Disability Rater Relationship Specialty Start Date End Date Pcp, Non-[facility] PCP - General 11/14/23 documented as of this encounter
[2024-05-16 15:33] LABS: HIV RNA PCR Qn Copies NOT DETECTED copies/mL (NOT DETECTED); HIV RNA PCR Qn Log Copies NOT DETECTED (NOT DETECTED)
== END 2024-05-14 09:19 | disposition home or self-care (01) ==
LOC: HO.HHCL 09:18
PROVIDERS: Visit Provider Internal Medicine
DX: Z21 Asymptomatic human immunodeficiency virus [HIV] infection status (principal)
CPT/HCPCS: 36415; 87536

== ENCOUNTER 2024-05-18 09:48 | Emergency (ER) | payer MEDICAID, SELFPAY ==
--- NOTE | ~2024-05-18 | XR_ITS ---
EXAMINATION: XR CHEST 2 VIEWS HISTORY: cough, pain COMPARISON: Comparison is made with the prior examination dated 04/17/2024. FINDINGS: PA and lateral views of the chest are submitted. The lungs are expanded and clear. There is no pleural effusion, pneumothorax, or pulmonary vascular congestion. The heart is normal in size. The bones are intact. XR/XR chest 2V IMPRESSION: No acute cardiopulmonary abnormality. Electronically signed by: Kar Cochran MD 05/18/2024 10:42 AM EDT
[2024-05-18 10:22] VITALS: BP 125/69; PULSE 98; RESP 18; TEMP 36.6; O2SAT 97; BMI 35.7
--- NOTE | 2024-05-18 10:23 | ED_ITS ---
HPI - Nausea/Vomiting/Diarrhea General Chief complaint: General Medical Stated complaint: Vomiting 3 days, SOB Time Seen by Provider: 05/18/24 11:16 Source: patient Mode of arrival: ambulatory Limitations: no limitations History of Present Illness ED Provider: Monica Cisse PA-C HPI Narrative: Patient is a 48 year old female with a past medical history of HIV, asthma, and GERD who presents to the ED for fevers, nausea, vomiting, chest pain, and shortness of breath. She states that 3 days ago she began experiencing fevers, headaches, nausea, vomiting, and general malaise. The next day she states she began to experience left sided, dull chest pain and shortness of breath that is worse on exertion. She continues to have reported chest pain and shortness of breath. She used her albuterol inhaler x2 with relief this am. Last vomited this morning. last bowel movement yesterday. Denies abdominal pain, dysuria, hematuria. Denies recent sick contacts. Patient states that she is compliant with all of her medications including her anti-virals. MD elicited complaint: nausea, vomiting and other Onset (ago): day(s) Associated nausea: Yes Associated abdominal pain: No Location of pain: chest Radiation: does not radiate Pain consistency: constant Quality: dull Exacerbating factors: exertion Relieving factors: rest Associated symptoms: chest pain, fever/chills, headaches and nausea/vomiting Related Data Home Medications ?Medication ?Instructions ?Recorded ?Confirmed atovaquone 750 mg/5 mL oral 750 mg PO BID 02/18/22 10/24/23 suspension bictegravir 50 mg-emtricitabine 1 tab PO DAILY 02/18/22 10/24/23 200 mg-tenofovir alafenam 25 mg tablet (Biktarvy) blood pressure test kit-large #1 ea 02/18/22 10/24/23 rosuvastatin 20 mg tablet 20 mg PO BEDTIME 02/18/22 10/24/23 sumatriptan succinate 50 mg tablet 50 mg PO Q8H PRN migraine 02/18/22 10/24/23 chlorthalidone 25 mg tablet 25 mg PO QAM 09/17/22 10/24/23 quetiapine 400 mg tablet 400 mg PO BEDTIME 09/17/22 10/24/23 olmesartan 20 mg tablet 20 mg PO DAILY 01/04/23 10/24/23 Previous Rx's ?Medication ?Instructions ?Recorded calcium polycarbophil 625 mg 1,250 mg (2 x 625 mg) PO DAILY 30 02/02/23 tablet (FiberCon) days #60 tabs omeprazole 40 mg capsule,delayed 40 mg PO .bid #60 caps 05/27/23 release fluticasone furoate 200 1 inh inhalation DAILY 30 days #1 06/21/23 mcg-vilanterol 25 mcg/dose ea inhalation powder (Breo Ellipta) umeclidinium 62.5 mcg/actuation 1 inh inhalation DAILY 30 days #1 06/21/23 blister powder for inhalation ea (Incruse Ellipta) docusate sodium 100 mg capsule 200 mg (2 x 100 mg) PO BEDTIME #60 11/08/23 (Stool Softener) caps nmzgatgoyu-sivdhmsonogfe-ggakqlif 1 tab PO Q6H PRN haeadace #20 tabs 01/28/24 50 mg-325 mg-40 mg tablet ondansetron 4 mg disintegrating 4 mg PO Q6-8H PRN nausea and 01/28/24 tablet vomiting #7 tabs sumatriptan succinate 50 mg tablet 50 mg PO Q2H PRN migraine headache 01/28/24 (Imitrex) #10 tabs cefuroxime axetil 250 mg tablet 250 mg PO BID 7 days #14 tabs 05/18/24 Allergies Allergy/AdvReac Type Severity Reaction Status Date / Time hydrocodone [From VICODIN] Allergy Intermediate RASH, Verified 05/18/24 10:25 SWELLING Review of Systems 2 Constitutional: Constitutional: Reports as per HPI Eyes: Eyes: Reports no additional eye complaints, Denies blurry vision, Denies change in vision, Denies diplopia, Denies eye discharge, Denies loss of vision and Denies eye pain ENT: Denies dizziness Cardiovascular: Cardiovascular: Reports no additional cardiovascular complaints, Reports chest pain (now resolved), Denies lightheadedness, Denies Loss of Consciousness and Reports dyspnea (now resolved) Respiratory: Respiratory: Reports no additional respiratory complaints, Reports cough and Reports dyspnea (now resolved) Gastrointestinal: Gastrointestinal: Reports nausea and Reports vomiting Genitourinary: Genitourinary: Denies hematuria, Denies urinary frequency, Denies dysuria, Denies urinary incontinence, Denies urinary hesitancy and Denies urinary urgency Musculoskeletal: Musculoskeletal: Reports no additional musculoskeletal complaints, Denies numbness and Denies tingling Neurologic: Denies dizziness, Denies loss of vision, Denies numbness and Denies tingling Psychiatric: Psychiatric: Reports no additional psychiatric complaints Endocrine: Endocrine: Reports no additional endocrine complaints Hematologic/Lymphatic: Hematologic/Lymphatic: Reports no additional hematologic/lymphatic complaints Allergic/Immunologic: Allergic/Immunologic: Reports no additional allergic/immunologic complaints PMFSH Past Medical History Attestation statement: The following information was validated with the patient. Source: old records reviewed and nursing notes reviewed Medical History AIN grade I Morbid obesity Asthma MAURICE (obstructive sleep apnea) GERD (gastroesophageal reflux disease) HIV (human immunodeficiency virus infection) Surgical History Hx of colonoscopy History of partial hysterectomy History of esophagogastroduodenoscopy (EGD) Family History Family History Unknown No problems noted. Social History Social History Household Members Other:: Lives with her mother, 4 kids live in [place] Alcohol intake: former Patient Tobacco Use Status: Current everyday Tobacco user Cigarette Packs Per Day: 1.5 Cigarettes Per Day: 30.0 Years Smoked: 46 Smoked in Last 30 Days: Yes Use of substances other than those prescribed or required for medical reasons: No Advance Directives: No Advance Directives Information Provided: No Do you have a plan to hurt others: No Plan Patient : No Current occupational status: disabled Physical Exam 2 Vital Signs: Vital Signs: Last Vital Signs Temp 98.2 F 05/18/24 14:03 Pulse 74 05/18/24 14:03 Resp 15 05/18/24 14:03 BP 123/62 05/18/24 14:03 Pulse Ox 99 05/18/24 14:03 O2 Del Method Room Air 05/18/24 14:03 BMI result Body Mass Index 35.7 Const: General: cooperative, no acute distress, alert and awake Nutritional Appearance: well nourished Orientation/consciousness: patient oriented x3 Limitations: no limitations HEENT: Head: Yes normal to inspection and Yes atraumatic Ears: hearing grossly normal bilaterally and external ears normal General nose exam: Normal external nose present, no nasal discharge noted and no epistaxis Face and sinus: Yes normal facial exam, No abrasion and No laceration Mouth: Normal oral and palatal mucosa present, no drooling and no muffled voice Eyes: General: appearance normal, both eyes and all related structures P eriorbital: periorbital findings normal Eyelids: Yes eyelids normal C onjunctivae: conjunctivae normal Pupils: Equal, round and reactive pupils present EOM: EOMs intact bilaterally Neck: Neck: Yes normal visual inspection, Yes full ROM and Yes no lymphadenopathy Chest: Chest palpation & inspection: normal inspection of the chest Resp: Effort & Inspection: normal respiratory effort and able to speak in complete sentences Auscultation: clear to auscultation bilaterally Cardio: Rate: regular rate Rhythm: regular rhythm Heart sounds: S1 normal heart sound present, S2 normal heart sound present, no gallops, no murmurs and no rubs GI: Inspection: Yes normal to inspection Palpation (GI): Soft to palpation, not firm, nontender, no guarding and not rigid Neuro: General: patient oriented x3, moves all extremities and CN's II-XI intact bilaterally Cranial nerves: Yes Equal, round and reactive pupils present Cognition (Neuro): normal cognition Extrem: General: Yes normal to inspection, Yes full ROM and Yes capillary refill normal Psych: Appearance: grossly normal Mental Status: mental status grossly normal Affect: normal affect Attitude: cooperative Thought process: N ormal thought process present Thought content: Normal thought content present Insight: Good insight present (Psych) Course Course Course Narrative: 48 yo female with PMH of obesity, GERD, kidney stone, HIV - reports her viral load is detectable but very low, HTN, GERD, HLD, migraines, here with c/o feeling her chest is tight and feels SANDOVAL, felt feverish last night. Chest tightness and breathing worse when she walks. She had these symptoms before. She also reports nausea, vomiting, no diarrhea. Denies sick contacts, travel, abx use. She is compliant with all of her medications. At this time viral panel, labs, CXR, EKG. this is a RAPID medical screening exam the rest of the history and physical exam is to be done by the main provider. KATRIN Medications Administered Discontinued Medications Generic Name Dose Route Start Last Admin Trade Name Kenroy PRN Reason Stop Dose Admin Acetaminophen 975 mg 05/18/24 11:15 05/18/24 11:18 Acetaminophen 325 Mg Tablet PO 05/18/24 11:16 975 mg ONCE ONE Administration Albuterol/Ipratropium 3 ml 05/18/24 13:27 05/18/24 13:30 Albuterol/Iprat 2.5/0.5mg 3 Ml Ampul.Neb INHALE 05/18/24 13:28 3 ml ONCE ONE Administration Ceftriaxone Sodium 1 gm 05/18/24 12:16 05/18/24 12:51 Ceftriaxone Sodium 1 Gm Vial IVPUSH 05/18/24 12:17 1 gm ONCE ONE Administration Diphenhydramine HCl 25 mg 05/18/24 12:16 05/18/24 12:51 Diphenhydramine Hcl 50 Mg/Ml Vial IVPUSH 05/18/24 12:17 25 mg ONCE ONE Administration Sodium Chloride 1,000 mls @ 999 mls/hr 05/18/24 12:30 05/18/24 13:53 Ns IV 05/18/24 13:30 Infused .Q1H1M JUAN Infusion Ketorolac Tromethamine 15 mg 05/18/24 12:16 05/18/24 12:51 Ketorolac Tromethamine 15 Mg/Ml Vial IVPUSH 05/18/24 12:17 15 mg ONCE ONE Administration Methylprednisolone Sodium Succinate 60 mg 05/18/24 12:33 05/18/24 12:51 Methylprednisolone Sod Succ 125 Mg/2 Ml Vial IVPUSH 05/18/24 12:34 60 mg ONCE ONE Administration Medical Decision Making Medical Decision Making [facility] Narrative: Patient is a 48 year old assigned female at with a history of HIV, GERD, and asthma presenting to the emergency department today with nausea, vomiting, intermittent fevers, now resolved shortness of breath and chest pain. Patient's physical exam was unremarkable. Patient's blood work showed no gross abnormalities. Patient's urine showed evidence of a UTI. Patient's EKG was unremarkable. Patient's chest x-ray showed no acute process. Patient's clinical presentation is most consistent with a viral illness and a UTI. I explained my physical exam findings as well as all test results to the patient. I answered all questions asked by the patient. I stressed the importance of the patient taking her medication as directed (either prescribed or as the over the counter packaging recommends). I stressed the importance of the patient following up with her primary care provider. I stressed the importance of the patient returning to the emergency department immediately if her symptoms were to worsen or if she were to develop any dizziness, shortness of breath, difficulty breathing, chest pain, blurry vision, loss of vision, nausea, vomiting, abdominal pain, fever, chills, back pain, or any other complaints. Patient verbalized agreement and understanding with this treatment plan and discharge. Differential Diagnosis Differential Diagnoses: The differential diagnosis associated with the presentation includes Viral illness URI COVID-19 Influenza RSV UTI Admission/Observation Consideration of admission/observation: Escalation of care including admission/observation considered Patient would have been admitted to the hospital had her work up had any findings where hospital admission was appropriate and her clinical presentation warranted hospital admission. Lab Data [facility] Lab Attestation statement: I reviewed the patient's lab results. My interpretation of these results are in the [facility] Rationale portion of this note. 05/18/24 10:50 05/18/24 10:50 Labs: Lab Results 05/18/24 05/18/24 Range/Units 10:50 11:20 WBC 8.7 (4.8-10.8) X10*3/uL RBC 4.60 (4.20-5.50) X10*6/uL Hgb 15.1 (12.0-16.0) g/dl Hct 42.9 (37.0-47.0) % MCV 93.3 (80.0-98.0) fL MCH 32.8 (27.0-33.0) pg MCHC 35.2 H (31.0-35.0) g/dl RDW 14.4 (11.0-16.0) % Plt Count 146 L (160-400) X10*3/uL MPV 9.6 (9.4-12.3) fL Immature Gran % (Auto) 0.7 H (0.0-0.4) % Neut % (Auto) 65.3 (45-73) % Lymph % (Auto) 26.9 (20-40) % [place] % (Auto) 6.2 (2-11) % Eos % (Auto) 0.6 (0-4) % Baso % (Auto) 0.3 (0-2) % Lymph # (Auto) 2.3 (1.2-4.9) X10*3/uL [place] # (Auto) 0.5 (0.1-1.2) X10*3/uL Eos # (Auto) 0.1 (0.0-0.4) X10*3/uL Baso # (Auto) 0.0 (0.0-0.2) X10*3/uL Abs Immat Gran (auto) 0.06 H (0.00-0.03) X10*3/uL Absolute Neuts (auto) 5.7 (2.0-8.3) x10*3/uL Absolute Nucleated RBC 0.000 (0.0-0.012) X10*3/uL Nucleated RBC % (auto) 0.0 (0.0-0.2) /100WBC Sodium 140 (135-145) mmol/L Potassium 3.8 (3.3-5.1) mmol/L Chloride 107 (96-108) mmol/L Carbon Dioxide 23 (22-29) mmol/L Anion Gap 14 (12-20) BUN 5 L (9-16) mg/dL Creatinine 0.73 (0.5-1.4) mg/dL Estim Creat Clear Calc 87.1 Estimated GFR > 60 Random Glucose 127 H (60-115) mg/dL Calcium 9.1 (8.4-10.2) mg/dL Magnesium 1.6 (1.6-2.6) mg/dL Total Bilirubin 0.4 (0.0-1.0) mg/dL Direct Bilirubin 0.2 (0.0-0.5) mg/dL AST 42 H (5-31) U/L ALT 44 H (0-31) U/L Alkaline Phosphatase 97 (39-117) U/L Troponin I High Sens < 2.7 (<3.5-17.0) ng/L B-Natriuretic Peptide < 10 (<100) pg/mL Total Protein 8.3 H (6.5-8.0) g/dL Albumin 4.3 (3.5-5.0) g/dL Lipase 16 (8-78) U/L Urine Color Yellow Urine Appearance Cloudy Urine pH 6.0 (5.0-9.0) Ur Specific [place] 1.015 (1.005-1.025) Urine Protein 30 (1+) H (Neg-Trace) mg/dL Urine Glucose (UA) Negative (Negative) mg/dL Urine Ketones Trace (Negative) mg/dL Urine Blood Trace H (Negative) Urine Nitrite Positive H (Negative) Ur Leukocyte Esterase Large (3+) H (Negative) Urine RBC 3-5 H (0-2) /HPF Urine WBC 21-50 H (0-5) /HPF Ur Squamous Epith Cells 6-10 (0-2) /HPF Urine Bacteria 4+ (None Seen) Hyaline Casts 0-2 (0-2) /LPF Influenza Type A (PCR) NEGATIVE (Negative) Influenza Type B (PCR) NEGATIVE (Negative) RSV RNA Qual (PCR) NEGATIVE (Negative) SARS-CoV-2 RNA (RT-PCR) NEGATIVE (Negative) Independent Interpretation I performed an independent interpretation of an: EKG and Plain X-Ray Interpretation: My interpretation is in agreement with the radiologist's impression of this imaging study. L EXAMINATION: XR CHEST 2 VIEWS HISTORY: cough, pain COMPARISON: Comparison is made with the prior examination dated 04/17/2024. FINDINGS: PA and lateral views of the chest are submitted. The lungs are expanded and clear. There is no pleural effusion, pneumothorax, or pulmonary vascular congestion. The heart is normal in size. The bones are intact. XR/XR chest 2V IMPRESSION: No acute cardiopulmonary abnormality. Electronically signed by: Kar Cochran MD 05/18/2024 10:42 AM EDT Dictated By: Kar Cochran MD Signed By: Electronically signed by Kar Cochran MD 05/18/24 1042 I independently interpreted this EKG and am in agreement with the below findings: Vent. Rate: 99 BPM Atrial Rate: 99 BPM P-R Int: 138 ms QRS Dur: 70 ms QT Int: 362 ms P-R-T Axes: 24 14 13 degrees QTcB Int: 464 ms Normal sinus rhythm Nonspecific T wave abnormality When compared with ECG of 17-Apr-2024 15:44, Vent. rate has increased by 35 bpm Nonspecific T wave abnormality now evident in Lateral leads QT has lengthened DD/ 1042 I independently interpreted this EKG and am in agreement with the below findings: Vent. Rate: 74 BPM Atrial Rate: 74 BPM P-R Int: 176 ms QRS Dur: 76 ms QT Int: 392 ms P-R-T Axes: 32 23 31 degrees QTcB Int: 435 ms Normal sinus rhythm Normal ECG When compared with ECG of 18-May-2024 10:42, Nonspecific T wave abnormality no longer evident in Lateral leads DD/ 1255 Radiology Impression Discussion of test interpretation with radiology: I have reviewed the radiologist's reading. Prescription Management I considered prescription management with: Antibiotic (patient prescribed an antibiotic for UTI) Discharge Plan Discharge Clinical Impression: Viral illness, Urinary tract infection Patient Disposition: Home, Self-Care Instructions: Urinary Tract Infection in Women (DC), Viral Syndrome (ED) Additional Instructions: Your work up today was reassuring. Your urine did show evidence of infection - take your antibiotic as prescribed. Follow up with your primary care provider. Return to the emergency department immediately if your symptoms worsen or if you develop any numbness, tingling, dizziness, shortness of breath, difficulty breathing, chest pain, blurry vision, loss of vision, nausea, vomiting, abdominal pain, fever, chills, back pain, or any other complaints. Please see the information below about our Patient Portal. If you are not yet enrolled in the [facility] & [facility] Patient Portal, you will receive an enrollment email invitation following your visit to any [facility] care setting. You may also self-enroll in the Patient Portal by visiting our website: [email or web address] The following information is required to access the Patient Portal: - Your [facility] Medical Record Number - Your personal home email address (must match what is in your electronic medical record, Registration staff can assist with this) - Name - Date of Capabilities of the Patient Portal: - Message some providers - View upcoming appointments - Access your health summary, medical history, and visit history - View current conditions and allergies - View procedure and lab results - View your medications, including guidelines, side effects, and precautions - Complete pre-appointment questionnaires requested by your provider - Ready summary reports of your office visits and procedures To access the Patient Portal Mobile [employer], follow these directions: - Search [employer] in the [employer] Store or [employer] Store - Download the [employer] - Search for [facility] - Enter your login/password Prescriptions: New cefuroxime axetil 250 mg tablet 250 mg PO BID 7 Days Qty: 14 0RF No Action omeprazole 40 mg capsule,delayed release(DR/EC) 40 mg PO .bid Qty: 60 6RF fluticasone furoate-vilanterol [Breo Ellipta] 200-25 mcg/dose blister with device 1 inh inhalation DAILY 30 Days Qty: 1 6RF Incruse Ellipta 62.5 mcg/actuation blister with device 1 inh inhalation DAILY 30 Days Qty: 1 6RF docusate sodium [Stool Softener] 100 mg capsule 200 mg PO BEDTIME Qty: 60 5RF sumatriptan succinate [Imitrex] 50 mg tablet 50 mg PO Q2H PRN (Reason: migraine headache) Qty: 10 0RF Rx Instructions: do not exceed 2 doses per 24 hrs xsipvgxxth-fzelqriomaecs-tosj 50-325-40 mg tablet 1 tab PO Q6H PRN (Reason: haeadace) Qty: 20 0RF ondansetron 4 mg tablet,disintegrating 4 mg PO Q6-8H PRN (Reason: nausea and vomiting) Qty: 7 0RF olmesartan 20 mg tablet 20 mg PO DAILY Biktarvy 50-200-25 mg tablet 1 tab PO DAILY sumatriptan succinate 50 mg tablet 50 mg PO Q8H PRN (Reason: migraine) (DME) blood pressure test kit-large Kit See Rx Instructions .ROUTE .MEDSUPPLY Qty: 1 Rx Instructions: As directed rosuvastatin 20 mg tablet 20 mg PO BEDTIME atovaquone 750 mg/5 mL suspension 750 mg PO BID quetiapine 400 mg tablet 400 mg PO BEDTIME chlorthalidone 25 mg tablet 25 mg PO QAM calcium polycarbophil [FiberCon] 625 mg tablet 1,250 mg PO DAILY 30 Days Qty: 60 3RF Referrals: Nuvia,Fanny, ON SITE SOIL EVALUATOR [Primary Care Provider] - Interventions: ED Discharge Assessment Last Done: 05/18/24 14:03 Discharge Date/Time: 05/18/24 14:03 Print Language: Maori
--- NOTE | 2024-05-18 10:25 | ECG_ITS ---
Test Reason : cp Blood Pressure : */* mmHG Vent. Rate : 99 BPM Atrial Rate : 99 BPM P-R Int : 138 ms QRS Dur : 70 ms QT Int : 362 ms P-R-T Axes : 24 14 13 degrees QTcB Int : 464 ms Normal sinus rhythm Nonspecific T wave abnormality Abnormal ECG When compared with ECG of 17-Apr-2024 15:44, Vent. rate has increased by 35 bpm Nonspecific T wave abnormality now evident in Lateral leads QT has lengthened Referred By: Nguyen Spear Electronically Signed By: PHILL MARCIAL
[2024-05-18 11:04] LABS: MANUAL DIFF FLAG NO
[2024-05-18 11:10] LABS: Basophils Percent Auto 0.3 % (0-2); Eosinophils Absolute Auto 0.1 X10*3/uL (0.0-0.4); Eosinophils Percent Auto 0.6 % (0-4); Hematocrit 42.9 % (37.0-47.0); Hemoglobin 15.1 g/dl (12.0-16.0); Imm Gran Abs Auto 0.06 X10*3/uL (0.00-0.03); Imm Gran Pct Auto 0.7 % (0.0-0.4); Lymphocytes Absolute Auto 2.3 X10*3/uL (1.2-4.9); Lymphocytes Percent Auto 26.9 % (20-40); Mean Corpuscular HGB Conc 35.2 g/dl (31.0-35.0); Mean Corpuscular Hemoglobin 32.8 pg (27.0-33.0); Mean Corpuscular Volume 93.3 fL (80.0-98.0); Mean Platelet Volume 9.6 fL (9.4-12.3); Monocytes Absolute Auto 0.5 X10*3/uL (0.1-1.2); Monocytes Percent Auto 6.2 % (2-11); Neutrophils Absolute Auto 5.7 x10*3/uL (2.0-8.3); Neutrophils Percent Auto 65.3 % (45-73); Platelet Count 146 X10*3/uL (160-400); Red Cell Distribution Width 14.4 % (11.0-16.0); White Blood Count 8.7 X10*3/uL (4.8-10.8)
[2024-05-18] MEDS: Acetaminophen 325 MG TABLET 975 MG PO (11:18)
[2024-05-18 11:22] LABS: Alanine Aminotransferase 44 U/L (0-31); Albumin Level 4.3 g/dL (3.5-5.0); Alkaline Phosphatase 97 U/L (39-117); Anion Gap 14 (12-20); Aspartate Amino Transferase 42 U/L (5-31); Bilirubin Direct 0.2 mg/dL (0.0-0.5); Bilirubin Total 0.4 mg/dL (0.0-1.0); Blood Urea Nitrogen 5 mg/dL (9-16); Calcium 9.1 mg/dL (8.4-10.2); Carbon Dioxide 23 mmol/L (22-29); Chloride 107 mmol/L (96-108); Creatinine Clr Calc Pharmacy 87.1; Estimated Glomerular Filt Rate > 60; Glucose Random 127 mg/dL (60-115); Lipase 16 U/L (8-78); Magnesium 1.6 mg/dL (1.6-2.6); Potassium 3.8 mmol/L (3.3-5.1); Sodium 140 mmol/L (135-145); Total Protein 8.3 g/dL (6.5-8.0)
[2024-05-18 11:25] LABS: B Type Natriuretic Peptide < 10 pg/mL (<100)
[2024-05-18 11:26] LABS: Appearance Urine Cloudy; Color Urine Yellow; Glucose Urine UA Negative (Negative); Leukocyte Esterase Urine Large (3+) (Negative); Nitrite Urine Positive (Negative); Specific Gravity - Urine 1.015 (1.005-1.025); Urine Blood Trace (Negative); Urine Ketones Trace mg/dL (Negative); Urine Protein 30 (1+) mg/dL (Neg-Trace)
[2024-05-18 11:27] LABS: UMIC TRIGGER UACC YES
[2024-05-18 11:28] LABS: Troponin-I High Sensitivity < 2.7 ng/L (<3.5-17.0)
[2024-05-18 11:37] LABS: Bacteria Urine 4+ (None Seen); Hyaline Casts Urine 0-2 /LPF (0-2); UACC Culture Trigger YES; WBC Urine 21-50 /HPF (0-5)
[2024-05-18 12:23] LABS: Influenza A PCR NEGATIVE (Negative); Influenza B PCR NEGATIVE (Negative); Resp Syncy Virus RNA Qual PCR NEGATIVE (Negative); SARS COV2 PCR INHOUSE NEGATIVE (Negative)
--- NOTE | 2024-05-18 12:35 | ECG_ITS ---
Test Reason : chest pain Blood Pressure : */* mmHG Vent. Rate : 74 BPM Atrial Rate : 74 BPM P-R Int : 176 ms QRS Dur : 76 ms QT Int : 392 ms P-R-T Axes : 32 23 31 degrees QTcB Int : 435 ms Normal sinus rhythm Normal ECG When compared with ECG of 18-May-2024 10:42, Nonspecific T wave abnormality no longer evident in Lateral leads Referred By: Monica Cisse Electronically Signed By: PHILL MARCIAL
--- OUTSIDE RECORDS SUMMARY | 2024-05-18 12:46 | XMS_ITS | Encounter Summary ---
Author Organization [facility] Address [address] [place] [address] Care Team Providers Care Information Architect Name Role Phone Pcp, Non-[facility] Primary Care Provider Unavailabl e Reason for Visit * Reason Comments Follow Up Encounter Details Date Type Department Care Team (Latest Contact Info) Description 05/17/2024 2:00 PM EDT Behavioral Health Visit [facility] [address] [place] [phone] Kavya Martinez APRN [address] [facility] [place] [id number] Generalized anxiety disorder; Severe recurrent major depression w/psychotic features, mood-congruent (HCC-CMS) Social History Tobacco Use Types Packs/Day Years [...] of this encounter Progress Notes * Kavya Martinez, TRANSIT MIXER OPERATOR - 05/17/2024 2:[address] [facility] OFFICE VISIT Name: Ishmael Guadarrama : 1975 PCP: Non-hc Pcp ASSESSMENT AND PLAN Problem List Items Addressed This Visit BH/MH Problems Severe recurrent major depression w/psychotic features, mood-congruent (HCC-CMS) (Chronic) Relevant Medications QUEtiapine 150 mg tab Generalized anxiety disorder Relevant Medications cloNIDine (CATAPRES) 0.1 mg tablet Follow-up: Return in about 2 months (around 07/17/2024). Kavya Martinez, TRANSIT MIXER OPERATOR 05/17/2024 2:34 PM EDT REASON FOR VISIT Chief Complaint Patient presents with Follow Up HPI/ROS Patient seen for follow-up reports, not willing to join video call, visit done via phone, patient reports that she is doing well, denies depression, anxiety and significant stressor, compliant with meds and finds them effective, she is doing well with therapy. Sleep: No issues Appetite: improved, but still taking Wegovy Substances: Denies Safety: Denies SI/HI/plan Perception: Denies AVH Medical: none reported PHQ No data to display Review of [...] Judgment normal. Visit conducted via Telehealth with audio only.. Telehealth Provided Other than in Patient's Home. [...] as otherwise needed. . Kavya Martinez APRN 05/17/2024 documented in this encounter Plan of Treatment Upcoming Encounters Date Type Department Care Team ([facility] st Contact Info) Description 07/12/2024 1:30 PM EDT Behavioral Health Visit [facility] [address] [place] [phone] Kavya Martinez APRN [address] [facility] [address] documented as of this encounter Visit Diagnoses Diagnosis Generalized anxiety disorder Severe recurrent major depression w/psychotic features, mood-congruent ([facility]-CMS) Major depressive disorder, recurrent episode, severe, specified as with psychotic behavior documented in this encounter Care Teams Information Architect Relationship Specialty Start Date End Date Pcp, Non-[facility] PCP - General 11/14/23 documented as of this encounter
--- OUTSIDE RECORDS SUMMARY | 2024-05-18 12:46 | XMS_ITS | Encounter Summary ---
Author Organization [facility] Address [address] [place] [address] Care Team Providers Care Bandage Wrapping Machine Operator Name Role Phone Pcp, [facility] Primary Care Provider Unavailabl e Reason for Visit * Reason Comments Follow Up Encounter Details Date Type Department Care Team (Latest Contact Info) Description 04/19/2024 1:30 PM EST Behavioral Health Visit [facility] [address] [place] [phone] Kavya Martinez, FLEXBOARD OPERATOR [address] [facility] [place] [phone] PTSD (post-traumatic stress disorder) (Primary Dx); Severe [...] Martinez APRN - 04/19/2024 1:12 PM EST [facility] OFFICE VISIT Name: Ishmael Guadarrama : 1975 PCP: Non-[facility] Pcp ASSESSMENT AND PLAN Problem List [...] Upcoming Encounters Date Type Department Care Team ([facility] st Contact Info) Description 07/12/2024 1:30 PM EDT Behavioral Health Visit [facility] [address] [place] [phone] Kavya Martinez APRN [address] [facility] [place] [phone] documented as of this encounter Visit Diagnoses Diagnosis PTSD (post-traumatic stress disorder)- Primary Posttraumatic stress disorder Severe recurrent major depression w/psychotic features, mood-congruent (HCC-CMS) Major depressive disorder, recurrent episode, severe, specified as with psychotic behavior Generalized anxiety disorder documented in this encounter Care Teams Bandage Wrapping Machine Operator Relationship Specialty Start Date End Date Pcp, Non-[facility] PCP - General 11/14/23 documented as of this encounter
--- OUTSIDE RECORDS SUMMARY | 2024-05-18 12:46 | XMS_ITS | Clinical Summary ---
Author Organization [facility] Address [address] [place] [address] Care Team Providers Care Storage And Backup Administrator Name Role Phone Pcp, [facility] Primary Care [...] times daily for 30 days 60 Tablet 1 5 06/17/19 25 Active QUEtiapine 150 mg tabIndications: Severe recurrent major depression w/psychotic features, mood-congruent (HCC-CMS) Take 1 Tab PO nightly. 30 Tablet 1 5 Active cloNIDine (CATAPRES) 0.1 mg tabletIndicatio [...] 1 Tab PO nightly. 30 Tablet 5 05/18/19 25 Discontinu ed(Reorder (E-Cancel Not Sent)) cloNIDine (CATAPRES) 0.1 mg tabletIndicatio ns:Generalized anxiety disorder Take 1 Tablet by mouth 2 (two) times daily for 30 days 60 Tablet 5 05/18/19 25 Discontinu ed(Reorder (E-Cancel Not Sent)) Active Problems Problem Noted Date Diagnosed Date Cervical stenosis (uterine cervix) 12/22/2023 History of cervical dysplasia 12/22/2023 HIV carrier ([facility]) 12/22/2023 FH: total abdominal hysterec prachi and bilateral salpingo-oophorectomy 08/17/2023 Severe recurrent major depre ssion w/psychotic features, mood-congruent ([facility]) 06/07/2023 Overview (12/29/2023): Patient presents with a [...] Health Integration Plan Internal Follow up with [facility] 06/08 @ 11am Rule Out Diagnoses n/a Behavioral Health Diagnoses At this time Ishmael meets criteria for Visit Diagnoses: Problem List Items Addressed This Visit Generalized anxiety disorder PTSD (post-traumatic stress disorder) Cocaine abuse ([facility]) Severe major depression ([facility]) Assessment & Plan (04/19/2024 1:26 PM EST): [...] Rectal screening Pap done today. Severe obesity ([facility]) 05/15/2023 Periodontal disease 08/20/2022 Symptomatic irreversible pulpitis 08/20/2022 History of cocaine use 05/25/2022 Overview (12/22/2023): Last Assessment & Plan: Continue Clonidine 0.1 mg BID. F/U with Information Systems Architect and cocaine support group. Dental caries 05/21/2022 Health care maintenance 04/09/2022 Overview (12/22/2023): Pap: 12/2021 NIL, HPV +, referred to CARDIAC CATH LAB MANAGER for colpo 02/2022- DENISE II, tx w/ cold knife cone 12/2022 ASCUS HPV +; ECC negative-->S/p YEYO. Needs yearly pap Anal pap: Needs yearly pap-->was followed by [facility] CARDIAC CATH LAB MANAGER. Need records. Message sent to Infectious Disease [...] She will be referred urgently to new [facility] Psychiatric prescriber for first appt within 1-2 [...] provider will not be an employee of [facility]. Therefore she gives consent to share PHI. She will also F/U with [facility] Clinician as usual. Call [facility] with any issues or concerns. All her [...] 08/12/19 Overview (01/04/2022): pt previously resided in [place]

niko nath. [facility] no record found and should be treated.

RN and HIV coordinator unable to reach pt by phone. Positive depression screening 08/04/2018 Tobacco dependence syndrome 03/08/2012 Overview (12/22/2023): ?? Decreased from 3 PPD from 1 PPD ?? Patches at home Last Assessment & Plan: Patches if needed. Patient precontemplative. Cessation tobacco health benefits discussed. Human immunodeficiency virus infection ([facility]) 08/04/2011 Overview (12/22/2023): ?? Followed by [facility] ID ?? Well controlled with Biktarvy ?? [...] treatment engagement. PLAN: 1. Follow up with [facility]: Recommended for follow-up: During Id appts 2. [...] Encounters Date Type Department Care Team Description 05/17/2024 2:00 PM EDT Behavioral Health Visit [facility] [address] [place] [address] [place] [phone] Kavya [place] APRN Generalized anxiety disorder; Severe recurrent major depression w/psychotic features, mood-congruent (HCC-CMS) 04/19/2024 1:30 PM EST Behavioral Health Visit [facility] [address] [place] [address] [place] [phone] Kavya [place] APRN PTSD (post-traumatic stress disorder) (Primary Dx); Severe recurrent major depression w/psychotic features, mood-congruent (HCC-CMS); Generalized anxiety disorder 03/22/2024 12:30 PM EST Behavioral Health Visit [facility] [address] [place] [address] [place] [phone] Kavya [place] APRN Severe recurrent major depression w/psychotic features, mood-congruent (HCC-CMS) (Primary Dx); Generalized anxiety disorder; PTSD (post-traumatic stress disorder) 03/08/2024 12:00 PM EST Behavioral Health Visit [facility] [address] [place] [phone] JuanZuleykaKavyaSHIRA chowdhury PTSD (post-traumatic stress disorder) (Primary Dx); Generalized anxiety disorder; Severe recurrent major depression w/psychotic features, mood-congruent ([facility]) 02/23/2024 1:00 PM EST Behavioral Health Visit [facility] [address] [place] [phone] Kavya [place] APRN Severe recurrent major depression w/psychotic features, mood-congruent ([facility]) (Primary Dx); Generalized anxiety disorder from Last 3 Months Immunizations Name Administration Dates Next Due Flu, Preservative Free 11/12/2021 Hep A, adult 11/20/2009,09/01/2009 Hep B, Adult/Adol (ENERGIX/RECOMBIVAX) 2,11/20/2009,09/01/2009 INFLUENZA, SEASONAL, INJECTABLE 12/27/2013,11/24 MANOLO COVID-19 VACCINE 08/29/2020 MENINGOCOCCAL MCV4P (MENACTRA) 05/26/2017 MMR (MMR II/Priorix) 04/13/2012 PNEUMOCOCCAL CONJUGATE PCV 13 12/27/2013 PNEUMOCOCCAL CONJUGATE PCV 20 (Prevnar) 04/06/19 23 PNEUMOCOCCAL POLYSACCHARIDE PPV23 05/26/2017, [facility] Flu Vaccine 01/10/2013, 012 TDAP 02/04/2022,10/28/2011 Td(adult),2 Lf tetanus toxoi d,preservative free 09/01/2009 Family History Medical History Relation Name Comments No Known Problems Brother No Known Problems Mother Relation Name Status Comments Brother Alive Daughter has four kids t maria [place] away from [facility] 24 years ago, no connection to them. [...] Upcoming Encounters Date Type Department Care Team ([facility] Contact Info) Description 07/12/2024 1:30 PM EDT Behavioral Health Visit [facility] [address] [place] [phone] Kavya Martinez APRN [address] [facility] [place] [address] Health Maintenance Due Date Last Done Comments Depression Monitoring 1975 LTBI Screening (#1) 1975 Relationship Safety Screening/Counseling 09/23/1991 Imm-Zoster, Recombinant (1 of 2) 09/23/1995 Imm-MMR (2 of 2 - Risk 2-dos e series) 05/11/2012 04/13/2012 Breast Cancer Screening (Mammogram) 2016 CT Colonography 2021 Colonoscopy 2021 Colorectal Cancer Screening 2021 FIT/gFOBT 2021 Fecal DNA 2021 Flexible Sigmoidoscopy 2021 [id number] ( season) 2023 02/03/2022, 12/03/2021, 11/12/2021, Additional history exists Imm-Influenza (#1) 2023 11/12/2021, 1 , 01/10/2013, Additional history exists Alcohol and Drug Screen 03/07/2024 Lipid Screening 05/18/2024 05/19/2023, 04/08, 11/01/2019 Diabetes Screening 08/16/2024 08/17/2023, 0 04/28/2021, 04/28/2021, Additional history exists Tobacco Cessation Counseling (#1) 12/21/2024 Imm-Meningococcal (3 - Risk 2-dose series) 05/03/2029 05/03/2024, 05/26/2017 Imm-DTaP/Tdap/Td (3 - Td or Tdap) 02/05/2032 [...] DATA CONVERSION 04/28/2021 10:4 0 AM PST [facility] Provider Default HIE LAB Final Resu lt DATA CONVERSION * (ABNORMAL) A1C ROUTINE -GLYHB (04/28/2021 10:40 AM PST) Pathologist [facility] HEMOGLOBIN A1C 5.7(A) 4.8 - 5.6 % 04/29/2021 3:10 AM PST DATA CONVERSION 04/28/2021 10:4 0 AM PST [facility] Provider Default HIE LAB Final Resu lt Performing Organization Address City[facility]/ZIP Co de Phone Number DATA CONVERSION * HEPATITIS C ANTIBODY-HCVAB (11/01/2019 5:24 AM PDT) HEPATITIS C ANTIBODY NON-REACTI VE NON-REACTI VE 11/03/2019 11:00 AM PDT DATA CONVERSION SIGNAL TO CUT-OFF 0.03 <1.00 11/03/2019 11:00 AM PDT DATA CONVERSION 11/01/2019 5:24 AM PDT [facility] Provider Default HIE LAB Final Resu lt DATA CONVERSION from Last 3 Months or Most Recently Relevant to Health Maintenance Insurance [place] MEDICA[place] [facility] Care Teams Storage And Backup Administrator Relationship Specialty Start Date End Date Pcp, [facility] PCP - General 11/14/23
[2024-05-18] MEDS: 0.9 % Sodium Chloride 1,000 ML 999 ML IV (12:48)
[2024-05-18] MEDS: cefTRIAXone sodium 1 GM VIAL IVPUSH (12:51)
[2024-05-18] MEDS: methylPREDNISolone Sod Succ 125 MG/2 ML VIAL 60 MG IVPUSH (12:51)
[2024-05-18] MEDS: Ketorolac Tromethamine 15 MG/ML VIAL IVPUSH (12:51)
[2024-05-18] MEDS: diphenhydrAMINE HCL 50 MG/ML VIAL 25 MG IVPUSH (12:51)
[2024-05-18 13:30] VITALS: PULSE 77; RESP 18; O2SAT 95
[2024-05-18] MEDS: Albuterol/Iprat 2.5/0.5MG 3 ML AMPUL.NEB INHALE (13:30)
[2024-05-18 13:41] VITALS: BP 123/62; PULSE 74; RESP 15; TEMP 36.8; O2SAT 99
[2024-05-18 14:03] VITALS: BP 123/62; PULSE 74; RESP 15; TEMP 36.8; O2SAT 99
== END 2024-05-18 14:03 | disposition home or self-care (01) ==
PROVIDERS: Emergency Medicine; Emergency Provider Emergency Medicine; PCP Registered Nurse
DX: B34.9 Viral infection, unspecified (principal); N39.0 Urinary tract infection, site not specified; R11.2 Nausea with vomiting, unspecified; R50.9 Fever, unspecified; R06.02 Shortness of breath; R51.9 Headache, unspecified; R07.89 Other chest pain; R94.31 Abnormal electrocardiogram [ECG] [EKG]; F17.210 Nicotine dependence, cigarettes, uncomplicated; Z79.899 Other long term (current) drug therapy; Z03.818 Encounter for observation for suspected exposure to other biological agents ruled out
CPT/HCPCS: 0241U; 36415; 71046; 80048; 80076; 81001; 83690; 83735; 83880; 84484; 85025; 87086; 87088; 87186; 93005; 94640; 96361; 96374; 96375; 99284; 99285; J0696; J1200; J1885; J2919

== ENCOUNTER → 2024-05-18 10:25 | Outpatient (BNV) | payer MEDICAID, SELFPAY | PROVIDERS: PCP Registered Nurse; Visit Provider Radiology Diagnostic Radiology | DX: R07.9 Chest pain, unspecified (principal); R05.9 Cough, unspecified | CPT/HCPCS: 71046 ==

== ENCOUNTER → 2024-05-18 10:25 | Outpatient (BNV) | payer MEDICAID, SELFPAY | PROVIDERS: Emergency Provider Emergency Medicine; PCP Registered Nurse; Visit Provider Internal Medicine | DX: R07.9 Chest pain, unspecified (principal); R94.31 Abnormal electrocardiogram [ECG] [EKG] | CPT/HCPCS: 93010 ==

== ENCOUNTER 2024-07-14 12:57 | Emergency (ER) | payer MEDICAID, SELFPAY ==
--- NOTE | ~2024-07-14 | CT_ITS ---
CLINICAL HISTORY: abd pain CT abdomen and pelvis with contrast Comparison: CT/REG/SR - CT ABDOMEN PELVIS WO IV CON - 08/26/22 20:[address]/REG/SR - CT ABDOMEN PELVIS W IV CON - 07/13/22 13:42 EDT Findings: Minor atelectasis at the lung bases. Hypodense liver. Right liver 20.3 cm length. Cholecystectomy. Abdominal solid organs otherwise unremarkable. No urolithiasis. No bowel obstruction, pneumoperitoneum, or pneumatosis. Moderate stool. Hysterectomy. Ovaries appear unremarkable. Normal appendix. There are a few scattered areas of fatty induration in bilateral buttocks subcutaneous tissues. Likely iatrogenic. The bones are intact. IMPRESSION: 1. Fatty hepatomegaly. 2. Additional nonacute findings as above. This document has been electronically signed by: Kye Guy MD on 07/14/2024 17:14:14
[2024-07-14 13:08] VITALS: BP 137/84; PULSE 96; RESP 14; TEMP 36.3; O2SAT 99; BMI 35.8
--- NOTE | 2024-07-14 13:18 | ED.ABDPAIN ---
HPI - Abdominal Pain General Chief Complaint: Abdominal Pain Stated Complaint: abd pain sent for xray pcp Time Seen by Provider: 07/14/24 13:16 Source: patient and RN notes reviewed Mode of arrival: ambulatory Limitations: no limitations History of Present Illness ED Provider: Ellyn Tompkins PA-C HPI narrative: This is a 48-year-old female, with a past medical history of Gastric ulcers, GERD, HIV, MAURICE, who presents emergency department with concerns for abdominal pain x 2 months. Patient reports that over the last 2 months she has had ongoing abdominal pain that is constant, waxes and wanes in severity. Pain worsens after eating. She states that every time she eats she vomits. She also reports that she has had 3-4 episodes of watery like diarrhea. she states that she was seen by a walk-in clinic and was given a order form for a KUB x-ray in his here for the x-ray. She denies any fevers, chills, chest pain, shortness of breath, or urinary symptoms. She states that the omeprazole was switched to pantoprazole yesterday. She denies alcohol or drug use. Smokes marijuana approximately 2 months ago, denies frequent marijuana use. She is currently being followed for her HIV, states that her CD4 count was doing well last time it was checked. No other complaints or concerns at this time. MD elicited complaint: abdominal pain Pertinent past history: HIV Pain Consistency: constant Location: none Radiation: epigastric Migration to: no migration Exacerbating factors: eating Relieving factors: nothing Associated symptoms: nausea, vomiting and diarrhea Related Data Home Medications ?Medication ?Instructions ?Recorded ?Confirmed atovaquone 750 mg/5 mL oral 750 mg PO BID 02/18/22 10/24/23 suspension bictegravir 50 mg-emtricitabine 1 tab PO DAILY 02/18/22 10/24/23 200 mg-tenofovir alafenam 25 mg tablet (Biktarvy) blood pressure test kit-large #1 ea 02/18/22 10/24/23 rosuvastatin 20 mg tablet 20 mg PO BEDTIME 02/18/22 10/24/23 sumatriptan succinate 50 mg tablet 50 mg PO Q8H PRN migraine 02/18/22 10/24/23 chlorthalidone 25 mg tablet 25 mg PO QAM 09/17/22 10/24/23 quetiapine 400 mg tablet 400 mg PO BEDTIME 09/17/22 10/24/23 olmesartan 20 mg tablet 20 mg PO DAILY 01/04/23 10/24/23 Previous Rx's ?Medication ?Instructions ?Recorded calcium polycarbophil 625 mg 1,250 mg (2 x 625 mg) PO DAILY 30 02/02/23 tablet (FiberCon) days #60 tabs omeprazole 40 mg capsule,delayed 40 mg PO .bid #60 caps 05/27/23 release fluticasone furoate 200 1 inh inhalation DAILY 30 days #1 06/21/23 mcg-vilanterol 25 mcg/dose ea inhalation powder (Breo Ellipta) umeclidinium 62.5 mcg/actuation 1 inh inhalation DAILY 30 days #1 06/21/23 blister powder for inhalation ea (Incruse Ellipta) docusate sodium 100 mg capsule 200 mg (2 x 100 mg) PO BEDTIME #60 11/08/23 (Stool Softener) caps dwoybbgdkf-dcaxbytsdgnfb-ajvxbjzw 1 tab PO Q6H PRN haeadace #20 tabs 01/28/24 50 mg-325 mg-40 mg tablet ondansetron 4 mg disintegrating 4 mg PO Q6-8H PRN nausea and 01/28/24 tablet vomiting #7 tabs sumatriptan succinate 50 mg tablet 50 mg PO Q2H PRN migraine headache 01/28/24 (Imitrex) #10 tabs cefuroxime axetil 250 mg tablet 250 mg PO BID 7 days #14 tabs 05/18/24 Allergies Allergy/AdvReac Type Severity Reaction Status Date / Time hydrocodone [From VICODIN] Allergy Intermediate RASH, Verified 07/14/24 13:09 SWELLING Review of Systems Review of Systems Yes all other systems are reviewed and are negative Constitutional: Reports as per HPI [facility] Past Medical History Medical History AIN grade I Morbid obesity Asthma MAURICE (obstructive sleep apnea) GERD (gastroesophageal reflux disease) HIV (human immunodeficiency virus infection) Surgical History Hx of colonoscopy History of partial hysterectomy History of esophagogastroduodenoscopy (EGD) Family History Family History Unknown No problems noted. Social History Social History Household Members Other:: Lives with her mother, 4 kids live in [place] Alcohol intake: former Patient Tobacco Use Status: Current everyday Tobacco user Cigarette Packs Per Day: 1.5 Cigarettes Per Day: 30.0 Years Smoked: 46 Current occupational status: disabled Physical Exam ED Vital Signs: Vital Signs - 24 hr 07/14/24 13:08 07/14/24 14:24 07/14/24 16:15 Temperature 97.3 F 97.4 F 97.3 F Pulse Rate 96 84 91 Respiratory Rate 14 16 16 Blood Pressure 137/84 117/71 135/66 Pulse Oximetry 99 100 98 Oxygen Delivery Method Room Air Room Air Room Air 07/14/24 18:03 07/14/24 18:27 Temperature 97.5 F 97.5 F Pulse Rate 79 79 Respiratory Rate 20 20 Blood Pressure 137/61 137/61 Pulse Oximetry 97 97 Oxygen Delivery Method Room Air Room Air BMI result Body Mass Index 35.8 Const General: cooperative, comfortable and no acute distress Orientation/consciousness: patient oriented x3 Limitations: no limitations HENMT Head: Yes normal to inspection, Yes normocephalic and Yes atraumatic Ears: hearing grossly normal bilaterally General nose exam: Normal external nose present Face and sinus: Yes normal facial exam Mouth: Normal oral and palatal mucosa present, oropharynx normal and moist mucous membranes Throat: Yes posterior oropharynx normal Eyes General: appearance normal, both eyes and all related structures Eyelids: Yes eyelids normal Conjunctivae: conjunctivae normal Sclerae: sclerae normal Pupils: Equal, round and reactive pupils present EOM: EOMs intact bilaterally Neck Neck: Yes normal visual inspection, Yes full ROM and Yes no lymphadenopathy Lymphatic: no lymphadenopathy noted Chest Chest palpation & inspection: normal inspection of the chest Resp Effort & Inspection: normal respiratory effort and able to speak in complete sentences Auscultation: clear to auscultation bilaterally, no crackles, no rales, no rhonchi and no wheezes Cardio Rate: regular rate Rhythm: regular rhythm Heart sounds: S1 normal heart sound present and S2 normal heart sound present GI Other: patient has tenderness palpation in the epigastrium, no right upper quadrant pain. No rebound or guarding. Normoactive bowel sounds present in all 4 quadrants. Inspection: Yes normal to inspection Skin General skin exam: no rashes or lesions noted Trauma: no lacerations or abrasions Wounds: no wounds Neuro General: patient oriented x3 and moves all extremities Cranial nerves: Yes Equal, round and reactive pupils present Extrem General: Yes normal to inspection Right upper extremity: normal to inspection Left upper extremity: normal to inspection Right lower extremity: normal to inspection Left lower extremity: normal to inspection Medical Decision Making Medical Decision Making [facility] Narrative: This is a 48-year-old female who presents emergency department with concerns for abdominal pain last 2 months. On arrival, vital signs within normal limits. She is speaking full sentences under no acute distress. She does have point tenderness palpation in the epigastrium. She did have a cholecystectomy. On arrival, patient is well-appearing, appears to be in no acute distress. Vital signs within normal limits. Abdomen is soft, with tenderness palpation in the epigastrium. She does have a history of ulcers. Denies any hemoptysis, bloody or black stool. Differential diagnoses include acute gastritis, gastroenteritis, diverticulosis, diverticulitis. plan: labs, UA, CT abdomen and pelvis, plus or minus pain medication antiemetics Course: patient with no leukocytosis, stable H&H, chemistry with no significant electrolyte derangement, no evidence of SHAWNA. Troponin x2 negative, beta quant less than 2, urine does not appear to be infected. Negative viral swabs. Abdominal CAT scan revealing fatty liver, otherwise unremarkable. Discussed overall workup today. She received 2 doses of morphine and Zofran, she is feeling much better. I also advised patient that she would benefit from a GI cocktail, she refuses. She would like to be discharged. She will follow-up with the GI specialist on Tuesday. Given strict return precautions. She understands and agrees with plan. Patient stable for discharge. Differential Diagnosis Differential Diagnoses: The differential diagnosis associated with the presentation includes See above Admission/Observation Consideration of admission/observation: Escalation of care including admission/observation considered Lab Data [facility] Lab Attestation statement: I reviewed the patient's lab results. see MDM and course 07/14/24 14:18 07/14/24 15:16 Labs: Lab Results 07/14/24 07/14/24 07/14/24 Range/Units 14:18 15:10 15:16 WBC 8.6 (4.8-10.8) X10*3/uL RBC 4.10 L (4.20-5.50) X10*6/uL Hgb 13.7 (12.0-16.0) g/dl Hct 39.8 (37.0-47.0) % MCV 97.1 (80.0-98.0) fL MCH 33.4 H (27.0-33.0) pg MCHC 34.4 (31.0-35.0) g/dl RDW 14.0 (11.0-16.0) % Plt Count 165 (160-400) X10*3/uL MPV 9.1 L (9.4-12.3) fL Immature Gran % (Auto) 0.5 H (0.0-0.4) % Neut % (Auto) 50.3 (45-73) % Lymph % (Auto) 42.2 H (20-40) % [place] % (Auto) 6.1 (2-11) % Eos % (Auto) 0.6 (0-4) % Baso % (Auto) 0.3 (0-2) % Lymph # (Auto) 3.6 (1.2-4.9) X10*3/uL [place] # (Auto) 0.5 (0.1-1.2) X10*3/uL Eos # (Auto) 0.1 (0.0-0.4) X10*3/uL Baso # (Auto) 0.0 (0.0-0.2) X10*3/uL Abs Immat Gran (auto) 0.04 H (0.00-0.03) X10*3/uL Absolute Neuts (auto) 4.3 (2.0-8.3) x10*3/uL Absolute Nucleated RBC 0.000 (0.0-0.012) X10*3/uL Nucleated RBC % (auto) 0.0 (0.0-0.2) /100WBC Sodium 140 (135-145) mmol/L Potassium 3.9 (3.3-5.1) mmol/L Chloride 109 H (96-108) mmol/L Carbon Dioxide 20 L (22-29) mmol/L Anion Gap 15 (12-20) BUN 6 L (9-16) mg/dL Creatinine 0.71 (0.5-1.4) mg/dL Estim Creat Clear Calc 89.8 Estimated GFR > 60 Random Glucose 81 (60-115) mg/dL Calcium 9.1 (8.4-10.2) mg/dL Magnesium 1.8 (1.6-2.6) mg/dL Total Bilirubin 0.3 (0.0-1.0) mg/dL Direct Bilirubin 0.1 (0.0-0.5) mg/dL AST 30 (5-31) U/L ALT 24 (0-31) U/L Alkaline Phosphatase 72 (39-117) U/L Troponin I High Sens 4.3 D (<3.5-17.0) ng/L Total Protein 7.2 (6.5-8.0) g/dL Albumin 4.1 (3.5-5.0) g/dL Lipase 26 (8-78) U/L Beta HCG, Quant < 2 mIU/mL Urine Color Yellow Urine Appearance Turbid Urine pH 7.0 (5.0-9.0) Ur Specific [place] 1.015 (1.005-1.025) Urine Protein Trace (Neg-Trace) mg/dL Urine Glucose (UA) Negative (Negative) mg/dL Urine Ketones Trace (Negative) mg/dL Urine Blood Negative (Negative) Urine Nitrite Negative (Negative) Ur Leukocyte Esterase Negative (Negative) Influenza Type A (PCR) NEGATIVE (Negative) Influenza Type B (PCR) NEGATIVE (Negative) RSV RNA Qual (PCR) NEGATIVE (Negative) SARS-CoV-2 RNA (RT-PCR) NEGATIVE (Negative) 07/14/24 Range/Units 17:01 WBC (4.8-10.8) X10*3/uL RBC (4.20-5.50) X10*6/uL Hgb (12.0-16.0) g/dl Hct (37.0-47.0) % MCV (80.0-98.0) fL MCH (27.0-33.0) pg MCHC (31.0-35.0) g/dl RDW (11.0-16.0) % Plt Count (160-400) X10*3/uL MPV (9.4-12.3) fL Immature Gran % (Auto) (0.0-0.4) % Neut % (Auto) (45-73) % Lymph % (Auto) (20-40) % [place] % (Auto) (2-11) % Eos % (Auto) (0-4) % Baso % (Auto) (0-2) % Lymph # (Auto) (1.2-4.9) X10*3/uL [place] # (Auto) (0.1-1.2) X10*3/uL Eos # (Auto) (0.0-0.4) X10*3/uL Baso # (Auto) (0.0-0.2) X10*3/uL Abs Immat Gran (auto) (0.00-0.03) X10*3/uL Absolute Neuts (auto) (2.0-8.3) x10*3/uL Absolute Nucleated RBC (0.0-0.012) X10*3/uL Nucleated RBC % (auto) (0.0-0.2) /100WBC Sodium (135-145) mmol/L Potassium (3.3-5.1) mmol/L Chloride (96-108) mmol/L Carbon Dioxide (22-29) mmol/L Anion Gap (12-20) BUN (9-16) mg/dL Creatinine (0.5-1.4) mg/dL Estim Creat Clear Calc Estimated GFR Random Glucose (60-115) mg/dL Calcium (8.4-10.2) mg/dL Magnesium (1.6-2.6) mg/dL Total Bilirubin (0.0-1.0) mg/dL Direct Bilirubin (0.0-0.5) mg/dL AST (5-31) U/L ALT (0-31) U/L Alkaline Phosphatase (39-117) U/L Troponin I High Sens 3.9 (<3.5-17.0) ng/L Total Protein (6.5-8.0) g/dL Albumin (3.5-5.0) g/dL Lipase (8-78) U/L Beta HCG, Quant mIU/mL Urine Color Urine Appearance Urine pH (5.0-9.0) Ur Specific [place] (1.005-1.025) Urine Protein (Neg-Trace) mg/dL Urine Glucose (UA) (Negative) mg/dL Urine Ketones (Negative) mg/dL Urine Blood (Negative) Urine Nitrite (Negative) Ur Leukocyte Esterase (Negative) Influenza Type A (PCR) (Negative) Influenza Type B (PCR) (Negative) RSV RNA Qual (PCR) (Negative) SARS-CoV-2 RNA (RT-PCR) (Negative) Independent Interpretation I performed an independent interpretation of an: EKG Interpretation: EKG normal sinus rhythm at a ventricular rate at 93 beats per minute, DC interval 150, QT QTC 354/440, no STEMI. Radiology Impression Discussion of test interpretation with radiology: I have reviewed the radiologist's reading. Radiologist Impression: Findings: Minor atelectasis at the lung bases. Hypodense liver. Right liver 20.3 cm length. Cholecystectomy. Abdominal solid organs otherwise unremarkable. No urolithiasis. No bowel obstruction, pneumoperitoneum, or pneumatosis. Moderate stool. Hysterectomy. Ovaries appear unremarkable. Normal appendix. There are a few scattered areas of fatty induration in bilateral buttocks subcutaneous tissues. Likely iatrogenic. The bones are intact. IMPRESSION: 1. Fatty hepatomegaly. 2. Additional nonacute findings as above. This document has been electronically signed by: Kye Guy MD on 07/14/2024 17:14:14 Dictated By: Kye Guy MD Medications Administered Discontinued Medications Generic Name Dose Route Start Last Admin Trade Name Freq PRN Reason Stop Dose Admin Famotidine 20 mg 07/14/24 17:34 07/14/24 18:26 Famotidine 20 Mg Tablet PO 07/14/24 17:35 Not Given ONCE ONE Sodium Chloride 1,000 mls @ 999 mls/hr 07/14/24 14:51 07/14/24 16:48 Ns IVCONT 07/14/24 15:51 Infused .Q1H1M ONE Infusion Iohexol 100 ml 07/14/24 16:09 07/14/24 16:09 Iohexol 350 Mg/Ml 100 Ml Infus..Btl IV 07/14/24 16:10 85 ml ONCE ONE Administration Lidocaine HCl 15 ml 07/14/24 17:34 07/14/24 18:26 Lidocaine Hcl Viscous 2 % 15 Ml Solution MUCOUS MEM 07/14/24 17:35 Not Given ONCE ONE Morphine Sulfate 4 mg 07/14/24 14:50 07/14/24 15:25 Morphine Sulfate 4 Mg/Ml Cartridge IVPUSH 07/14/24 14:51 4 mg ONCE ONE Administration Protocol Morphine Sulfate 4 mg 07/14/24 16:32 07/14/24 16:55 Morphine Sulfate 4 Mg/Ml Cartridge IVPUSH 07/14/24 16:33 4 mg ONCE ONE Administration Protocol Ondansetron HCl 4 mg 07/14/24 14:50 07/14/24 14:59 Ondansetron Hcl 4 Mg/2 Ml Vial IVPUSH 07/14/24 14:51 4 mg ONCE ONE Administration Discharge Plan Discharge Clinical Impression: Abdominal pain Patient Disposition: Home, Self-Care Instructions: Abdominal Pain (ED) Additional Instructions: You were seen in the emergency department due to abdominal pain. Your CT scan does show evidence of a fatty enlarged liver. Please follow-up with the GI specialist regarding this. It is unclear what is causing you to have the symptoms however the tassel making machine operator may be better suited to further evaluate your abdominal pain. Please called tassel making machine operator on Tuesday for follow-up. You tested negative for COVID, flu, and RSV. Continue taking your pantoprazole. if any new or worsening symptoms occur including but not limited to severe chest pain, shortness for breath, worsening abdominal pain, please seek emergent care. Prescriptions: No Action omeprazole 40 mg capsule,delayed release(DR/EC) 40 mg PO .bid Qty: 60 6RF fluticasone furoate-vilanterol [Breo Ellipta] 200-25 mcg/dose blister with device 1 inh inhalation DAILY 30 Days Qty: 1 6RF Incruse Ellipta 62.5 mcg/actuation blister with device 1 inh inhalation DAILY 30 Days Qty: 1 6RF docusate sodium [Stool Softener] 100 mg capsule 200 mg PO BEDTIME Qty: 60 5RF sumatriptan succinate [Imitrex] 50 mg tablet 50 mg PO Q2H PRN (Reason: migraine headache) Qty: 10 0RF Rx Instructions: do not exceed 2 doses per 24 hrs ixoczjhvhk-thgbhdsvbwwmr-jgbr 50-325-40 mg tablet 1 tab PO Q6H PRN (Reason: haeadace) Qty: 20 0RF ondansetron 4 mg tablet,disintegrating 4 mg PO Q6-8H PRN (Reason: nausea and vomiting) Qty: 7 0RF olmesartan 20 mg tablet 20 mg PO DAILY cefuroxime axetil 250 mg tablet 250 mg PO BID 7 Days Qty: 14 0RF Biktarvy 50-200-25 mg tablet 1 tab PO DAILY sumatriptan succinate 50 mg tablet 50 mg PO Q8H PRN (Reason: migraine) (DME) blood pressure test kit-large Kit See Rx Instructions .ROUTE .MEDSUPPLY Qty: 1 Rx Instructions: As directed rosuvastatin 20 mg tablet 20 mg PO BEDTIME atovaquone 750 mg/5 mL suspension 750 mg PO BID quetiapine 400 mg tablet 400 mg PO BEDTIME chlorthalidone 25 mg tablet 25 mg PO QAM calcium polycarbophil [FiberCon] 625 mg tablet 1,250 mg PO DAILY 30 Days Qty: 60 3RF Referrals: [facility] [place] Gastroenterology Services [Provider Group] Interventions: ED Discharge Assessment Last Done: 07/14/24 18:27 Discharge Date/Time: 07/14/24 18:27 Print Language: Estonian
--- NOTE | 2024-07-14 13:30 | ECG_ITS ---
Test Reason : abdominal pain Blood Pressure : */* mmHG Vent. Rate : 93 BPM Atrial Rate : 93 BPM P-R Int : 150 ms QRS Dur : 76 ms QT Int : 354 ms P-R-T Axes : 27 11 29 degrees QTcB Int : 440 ms Normal sinus rhythm Minimal voltage criteria for LVH, may be normal variant ( R in aVL ) Borderline ECG When compared with ECG of 18-May-2024 12:55, No significant change was found Referred By: Ellyn Tompkins Electronically Signed By: PHILL MARCIAL
[2024-07-14 14:23] LABS: MANUAL DIFF FLAG NO
[2024-07-14 14:24] VITALS: BP 117/71; PULSE 84; RESP 16; TEMP 36.3; O2SAT 100
[2024-07-14 14:24] LABS: Basophils Percent Auto 0.3 % (0-2); Eosinophils Absolute Auto 0.1 X10*3/uL (0.0-0.4); Eosinophils Percent Auto 0.6 % (0-4); Hematocrit 39.8 % (37.0-47.0); Hemoglobin 13.7 g/dl (12.0-16.0); Imm Gran Abs Auto 0.04 X10*3/uL (0.00-0.03); Imm Gran Pct Auto 0.5 % (0.0-0.4); Lymphocytes Absolute Auto 3.6 X10*3/uL (1.2-4.9); Lymphocytes Percent Auto 42.2 % (20-40); Mean Corpuscular HGB Conc 34.4 g/dl (31.0-35.0); Mean Corpuscular Hemoglobin 33.4 pg (27.0-33.0); Mean Corpuscular Volume 97.1 fL (80.0-98.0); Mean Platelet Volume 9.1 fL (9.4-12.3); Monocytes Absolute Auto 0.5 X10*3/uL (0.1-1.2); Monocytes Percent Auto 6.1 % (2-11); Neutrophils Absolute Auto 4.3 x10*3/uL (2.0-8.3); Neutrophils Percent Auto 50.3 % (45-73); Platelet Count 165 X10*3/uL (160-400); White Blood Count 8.6 X10*3/uL (4.8-10.8)
[2024-07-14 14:44] LABS: Troponin-I High Sensitivity 4.3 ng/L (<3.5-17.0)
[2024-07-14] MEDS: ondansetron HCL 4 MG/2 ML VIAL IVPUSH (14:59)
[2024-07-14] MEDS: 0.9 % Sodium Chloride 1,000 ML 999 ML IVCONT (15:01)
[2024-07-14 15:02] LABS: Influenza A PCR NEGATIVE (Negative); Influenza B PCR NEGATIVE (Negative); Resp Syncy Virus RNA Qual PCR NEGATIVE (Negative); SARS COV2 PCR INHOUSE NEGATIVE (Negative)
[2024-07-14] MEDS: Morphine Sulfate 4 MG/ML CARTRIDGE IVPUSH ×2 (15:25→16:55)
[2024-07-14 15:26] LABS: Appearance Urine Turbid; Color Urine Yellow; Glucose Urine UA Negative (Negative); Leukocyte Esterase Urine Negative (Negative); Nitrite Urine Negative (Negative); Specific Gravity - Urine 1.015 (1.005-1.025); Urine Blood Negative (Negative); Urine Ketones Trace mg/dL (Negative); Urine Protein Trace mg/dL (Neg-Trace)
[2024-07-14 15:48] LABS: Alanine Aminotransferase 24 U/L (0-31); Albumin Level 4.1 g/dL (3.5-5.0); Alkaline Phosphatase 72 U/L (39-117); Anion Gap 15 (12-20); Aspartate Amino Transferase 30 U/L (5-31); Bilirubin Direct 0.1 mg/dL (0.0-0.5); Bilirubin Total 0.3 mg/dL (0.0-1.0); Blood Urea Nitrogen 6 mg/dL (9-16); Calcium 9.1 mg/dL (8.4-10.2); Carbon Dioxide 20 mmol/L (22-29); Chloride 109 mmol/L (96-108); Creatinine Clr Calc Pharmacy 89.8; Estimated Glomerular Filt Rate > 60; Glucose Random 81 mg/dL (60-115); HCG Quantitative < 2 mIU/mL; Lipase 26 U/L (8-78); Magnesium 1.8 mg/dL (1.6-2.6); Potassium 3.9 mmol/L (3.3-5.1); Sodium 140 mmol/L (135-145); Total Protein 7.2 g/dL (6.5-8.0)
[2024-07-14] MEDS: iohexoL 350 MG/ML 100 ML INFUS..BTL IV (16:09)
[2024-07-14 16:15] VITALS: BP 135/66; PULSE 91; RESP 16; TEMP 36.3; O2SAT 98
[2024-07-14 17:26] LABS: Troponin-I High Sensitivity 3.9 ng/L (<3.5-17.0)
[2024-07-14 18:03] VITALS: BP 137/61; PULSE 79; RESP 20; TEMP 36.4; O2SAT 97
[2024-07-14 18:27] VITALS: BP 137/61; PULSE 79; RESP 20; TEMP 36.4; O2SAT 97
== END 2024-07-14 18:27 | disposition home or self-care (01) ==
PROVIDERS: Physician Assistant Medical; Emergency Provider Emergency Medicine; PCP Registered Nurse
DX: R10.9 Unspecified abdominal pain (principal); R10.2 Pelvic and perineal pain; R19.7 Diarrhea, unspecified; R94.31 Abnormal electrocardiogram [ECG] [EKG]; R11.0 Nausea; F12.90 Cannabis use, unspecified, uncomplicated; Z79.899 Other long term (current) drug therapy; Z03.818 Encounter for observation for suspected exposure to other biological agents ruled out
CPT/HCPCS: 0241U; 36415; 74177; 80048; 80076; 81003; 83690; 83735; 84484; 84702; 85025; 93005; 96361; 96374; 96375; 96376; 99284; J2270; J2405; Q9967

== ENCOUNTER → 2024-07-14 13:29 | Outpatient (BNV) | payer MEDICAID, SELFPAY | PROVIDERS: Emergency Provider Emergency Medicine; PCP Registered Nurse; Visit Provider Radiology Diagnostic Radiology | DX: R10.84 Generalized abdominal pain (principal) | CPT/HCPCS: 74177 ==

== ENCOUNTER → 2024-07-14 13:30 | Outpatient (BNV) | payer MEDICAID, SELFPAY | PROVIDERS: Emergency Provider Emergency Medicine; PCP Registered Nurse; Visit Provider Internal Medicine | DX: R94.31 Abnormal electrocardiogram [ECG] [EKG] (principal); R10.9 Unspecified abdominal pain | CPT/HCPCS: 93010 ==

== ENCOUNTER 2024-08-09 09:18 | Emergency (ER) | payer MEDICAID, SELFPAY ==
--- NOTE | ~2024-08-09 | XR_ITS ---
EXAMINATION: XR CHEST CLINICAL INFORMATION: dyspnea COMPARISON: 05/18/2024. TECHNIQUE: Frontal view of the chest was obtained. FINDINGS: The cardiac, hilar, and mediastinal contours are normal. The lungs are clear bilaterally. No pneumothorax or effusion. No focal osseous or soft tissue abnormality. No evidence of free intraperitoneal air. XR/XR chest 1V IMPRESSION: Normal chest. No evidence of free intraperitoneal air. Electronically signed by: Yosef Stephens MD 08/09/2024 12:13 PM EDT
[2024-08-09 09:45] VITALS: BP 137/67; PULSE 93; RESP 18; TEMP 36.1; O2SAT 98; BMI 35.2
--- NOTE | 2024-08-09 10:19 | ED_ITS ---
HPI - Abdominal Pain General Chief Complaint: Abdominal Pain Stated Complaint: Abd pain, vomiting Time Seen by Provider: 08/09/24 10:18 Source: patient Mode of arrival: ambulatory Limitations: no limitations History of Present Illness ED Provider: HPI narrative: 48-year-old woman with history of gastritis, acid reflux, HIV which is under good control, continues to smoke tobacco and drink caffeine, has a appointment with the GI provider in October, has been worsening pain despite her PPIs at home, was sent to the ER by PCP. No chest pain or shortness of breath, has not really modified her diet much. Related Data Home Medications ?Medication ?Instructions ?Recorded ?Confirmed atovaquone 750 mg/5 mL oral 750 mg PO BID 02/18/22 10/24/23 suspension bictegravir 50 mg-emtricitabine 1 tab PO DAILY 02/18/22 10/24/23 200 mg-tenofovir alafenam 25 mg tablet (Biktarvy) blood pressure test kit-large #1 ea 02/18/22 10/24/23 rosuvastatin 20 mg tablet 20 mg PO BEDTIME 02/18/22 10/24/23 sumatriptan succinate 50 mg tablet 50 mg PO Q8H PRN migraine 02/18/22 10/24/23 chlorthalidone 25 mg tablet 25 mg PO QAM 09/17/22 10/24/23 quetiapine 400 mg tablet 400 mg PO BEDTIME 09/17/22 10/24/23 olmesartan 20 mg tablet 20 mg PO DAILY 01/04/23 10/24/23 Previous Rx's ?Medication ?Instructions ?Recorded calcium polycarbophil 625 mg 1,250 mg (2 x 625 mg) PO DAILY 30 02/02/23 tablet (FiberCon) days #60 tabs omeprazole 40 mg capsule,delayed 40 mg PO .bid #60 caps 05/27/23 release fluticasone furoate 200 1 inh inhalation DAILY 30 days #1 06/21/23 mcg-vilanterol 25 mcg/dose ea inhalation powder (Breo Ellipta) umeclidinium 62.5 mcg/actuation 1 inh inhalation DAILY 30 days #1 06/21/23 blister powder for inhalation ea (Incruse Ellipta) docusate sodium 100 mg capsule 200 mg (2 x 100 mg) PO BEDTIME #60 11/08/23 (Stool Softener) caps ggtjejszca-fitllbqxrssow-podaycan 1 tab PO Q6H PRN haeadace #20 tabs 01/28/24 50 mg-325 mg-40 mg tablet ondansetron 4 mg disintegrating 4 mg PO Q6-8H PRN nausea and 01/28/24 tablet vomiting #7 tabs sumatriptan succinate 50 mg tablet 50 mg PO Q2H PRN migraine headache 01/28/24 (Imitrex) #10 tabs cefuroxime axetil 250 mg tablet 250 mg PO BID 7 days #14 tabs 05/18/24 sucralfate 1 gram tablet (Carafate) 1 g PO Q6H 7 days #28 tabs 08/09/24 Allergies Allergy/AdvReac Type Severity Reaction Status Date / Time hydrocodone [From VICODIN] Allergy Intermediate RASH, Verified 08/09/24 09:47 SWELLING Review of Systems Constitutional: Reports as per [facility] Past Medical History Medical History AIN grade I Morbid obesity Asthma MAURICE (obstructive sleep apnea) GERD (gastroesophageal reflux disease) HIV (human immunodeficiency virus infection) Surgical History Hx of colonoscopy History of partial hysterectomy History of esophagogastroduodenoscopy (EGD) Family History Family History Unknown No problems noted. Social History Social History Household Members Other:: Lives with her mother, 4 kids live in [place] Alcohol intake: former Patient Tobacco Use Status: Current everyday Tobacco user Cigarette Packs Per Day: 1.5 Cigarettes Per Day: 30.0 Years Smoked: 46 Smoked in Last 30 Days: Yes Use of substances other than those prescribed or required for medical reasons: No Advance Directives: No Advance Directives Information Provided: Yes Current occupational status: disabled Physical Exam ED Vital Signs: Vital Signs - 24 hr 08/09/24 09:45 08/09/24 10:32 Temperature 97 F 98.3 F Pulse Rate 93 97 Respiratory Rate 18 16 Blood Pressure 137/67 145/71 H Pulse Oximetry 98 95 Oxygen Delivery Method Room Air Room Air BMI result Body Mass Index 35.2 Const Other: * Gen: ?In discomfort * HEENT: PERRLA, EOMI, MMM, * Neck: Supple, no LAD * CV: RRR, no obvious murmurs appreciated * Resp: ?No wheezing rales rhonchi no stridor moving air well * Abd: Epigastric tenderness, negative Soliman's sign, no tenderness in the lower quadrants, bowel sounds present * MSK: FROM, strength 5/5 all extremities * Skin: Warm, dry, intact, * Neuro: ?Alert and oriented x3, moving upper and lower extremities symmetrically, no obvious facial asymmetry noted Medical Decision Making Medical Decision Making [facility] Narrative: Did not feel that patient is requires CT abdomen pelvis at this time, we will obtain upright x-ray to make sure there is no free air, she has history of gastritis, poor diet, smokes tobacco and drinks caffeine, HIV under control, we will treat symptomatically re-evaluate, anticipate discharge, I did have a discussion with her regarding dietary modifications. 11:47 re-evaluated, better but still having discomfort, we will medicate more, awaiting x-ray. Discussed that her blood work has been reassuring. Differential Diagnosis Differential Diagnoses: The differential diagnosis associated with the presentation includes Cholecystitis, pancreatitis, hepatitis, gastritis, cholangitis, choledocholithiasis, SBO, ACS Admission/Observation Consideration of admission/observation: Escalation of care including admission/observation considered Lab Data [facility] Lab Attestation statement: I reviewed the patient's lab results. 08/09/24 10:28 08/09/24 10:28 Labs: Lab Results 08/09/24 08/09/24 Range/Units 10:28 11:10 WBC 8.7 (4.8-10.8) X10*3/uL RBC 4.48 (4.20-5.50) X10*6/uL Hgb 14.4 (12.0-16.0) g/dl Hct 42.3 (37.0-47.0) % MCV 94.4 (80.0-98.0) fL MCH 32.1 (27.0-33.0) pg MCHC 34.0 (31.0-35.0) g/dl RDW 13.5 (11.0-16.0) % Plt Count 166 (160-400) X10*3/uL MPV 9.2 L (9.4-12.3) fL Immature Gran % (Auto) 0.7 H (0.0-0.4) % Neut % (Auto) 60.8 (45-73) % Lymph % (Auto) 31.6 (20-40) % Dillon % (Auto) 6.1 (2-11) % Eos % (Auto) 0.5 (0-4) % Baso % (Auto) 0.3 (0-2) % Lymph # (Auto) 2.7 (1.2-4.9) X10*3/uL Dillon # (Auto) 0.5 (0.1-1.2) X10*3/uL Eos # (Auto) 0.0 (0.0-0.4) X10*3/uL Baso # (Auto) 0.0 (0.0-0.2) X10*3/uL Abs Immat Gran (auto) 0.06 H (0.00-0.03) X10*3/uL Absolute Neuts (auto) 5.3 (2.0-8.3) x10*3/uL Absolute Nucleated RBC 0.000 (0.0-0.012) X10*3/uL Nucleated RBC % (auto) 0.0 (0.0-0.2) /100WBC Sodium 140 (135-145) mmol/L Potassium 3.9 (3.3-5.1) mmol/L Chloride 109 H (96-108) mmol/L Carbon Dioxide 23 (22-29) mmol/L Anion Gap 12 (12-20) BUN 8 L (9-16) mg/dL Creatinine 0.74 (0.5-1.4) mg/dL Estim Creat Clear Calc 85.3 Estimated GFR > 60 Random Glucose 116 H (60-115) mg/dL Calcium 9.9 D (8.4-10.2) mg/dL Total Bilirubin 0.5 (0.0-1.0) mg/dL Direct Bilirubin 0.2 (0.0-0.5) mg/dL AST 35 H (5-31) U/L ALT 32 H (0-31) U/L Alkaline Phosphatase 85 (39-117) U/L Total Protein 7.9 (6.5-8.0) g/dL Albumin 4.7 (3.5-5.0) g/dL Lipase 27 26 (8-78) U/L Beta-Hydroxybutyrate 0.24 (0.02-0.27) mmol/L Independent Interpretation I performed an independent interpretation of an: EKG (94 beats per minute, otherwise normal ECG without dysrhythmia, AV timothy blocks or ST-T changes to suspect underlying ACS, my independent interpretation) and Plain X-Ray (My independent chest xray interpretation: Lungs: Lungs are clear bilaterally without evidence of focal consolidation, pleural effusion, or pneumothorax. Cardiac silhouette is unremarkable, no obvious mediastinal widening, no obvious bony abnormalities such as fractures. Impression: Normal chest X-r) Medications Administered Discontinued Medications Generic Name Dose Route Start Last Admin Trade Name Freq PRN Reason Stop Dose Admin Al Hydroxide/Mg Hydroxide 30 ml 08/09/24 10:32 08/09/24 11:33 Magnesium Hydrox/Alum Hydrox 30 Ml Oral.Susp PO 08/09/24 10:33 30 ml ONCE ONE Administration Sodium Chloride 1,000 mls @ 999 mls/hr 08/09/24 10:45 08/09/24 11:23 Ns IV 08/09/24 11:45 999 mls/hr .Q1H1M JUAN Administration Lidocaine HCl 15 ml 08/09/24 10:32 08/09/24 11:33 Lidocaine Hcl Viscous 2 % 15 Ml Solution PO 08/09/24 10:33 15 ml ONCE ONE Administration Morphine Sulfate 4 mg 08/09/24 10:32 08/09/24 11:33 Morphine Sulfate 4 Mg/Ml Cartridge IVPUSH 08/09/24 10:33 4 mg ONCE ONE Administration Protocol Morphine Sulfate 4 mg 08/09/24 11:48 08/09/24 11:58 Morphine Sulfate 4 Mg/Ml Cartridge IVPUSH 08/09/24 11:49 4 mg ONCE ONE Administration Protocol Ondansetron HCl 4 mg 08/09/24 10:32 08/09/24 11:22 Ondansetron Hcl 4 Mg/2 Ml Vial IVPUSH 08/09/24 10:33 4 mg ONCE ONE Administration Sucralfate 1 gm 08/09/24 10:32 08/09/24 11:33 Sucralfate Oral Suspension 1 Gm/10 Ml Oral.Susp PO 08/09/24 10:33 1 gm ONCE ONE Administration Discharge Plan Discharge Clinical Impression: GERD (gastroesophageal reflux disease), Epigastric abdominal pain Patient Disposition: Home, Self-Care Instructions: Epigastric Pain (ED) Additional Instructions: Your EKG, chest x-ray, blood work has been reassuring You have longstanding history of abdominal issues, you are scheduled to see a specialist, until you see a specialist I would recommend that you have a total remake of your diet including cutting out acidity altogether which means no tobacco, no caffeine, having a healthy breakfast I would recommend old male for now, no fried food. Otherwise no matter what medications you going to take your symptoms are just not going to improve. But you do need endoscopy and a GI specialist involved in your care. For the next 1 week Carafate 1 pill 20 minutes before any meal. Continue all your other medications on regular basis. Prescriptions: New sucralfate [Carafate] 1 gram tablet 1 g PO Q6H 7 Days Qty: 28 0RF No Action omeprazole 40 mg capsule,delayed release(DR/EC) 40 mg PO .bid Qty: 60 6RF fluticasone furoate-vilanterol [Breo Ellipta] 200-25 mcg/dose blister with device 1 inh inhalation DAILY 30 Days Qty: 1 6RF Incruse Ellipta 62.5 mcg/actuation blister with device 1 inh inhalation DAILY 30 Days Qty: 1 6RF docusate sodium [Stool Softener] 100 mg capsule 200 mg PO BEDTIME Qty: 60 5RF sumatriptan succinate [Imitrex] 50 mg tablet 50 mg PO Q2H PRN (Reason: migraine headache) Qty: 10 0RF Rx Instructions: do not exceed 2 doses per 24 hrs tjeimzrvmj-mtkcaxtfhdwjf-fpaj 50-325-40 mg tablet 1 tab PO Q6H PRN (Reason: haeadace) Qty: 20 0RF ondansetron 4 mg tablet,disintegrating 4 mg PO Q6-8H PRN (Reason: nausea and vomiting) Qty: 7 0RF olmesartan 20 mg tablet 20 mg PO DAILY cefuroxime axetil 250 mg tablet 250 mg PO BID 7 Days Qty: 14 0RF Biktarvy 50-200-25 mg tablet 1 tab PO DAILY sumatriptan succinate 50 mg tablet 50 mg PO Q8H PRN (Reason: migraine) (DME) blood pressure test kit-large Kit See Rx Instructions .ROUTE .MEDSUPPLY Qty: 1 Rx Instructions: As directed rosuvastatin 20 mg tablet 20 mg PO BEDTIME atovaquone 750 mg/5 mL suspension 750 mg PO BID quetiapine 400 mg tablet 400 mg PO BEDTIME chlorthalidone 25 mg tablet 25 mg PO QAM calcium polycarbophil [FiberCon] 625 mg tablet 1,250 mg PO DAILY 30 Days Qty: 60 3RF Referrals: Fanny Pedersen, STEAM CRANE OPERATOR [Primary Care Provider] - Print Language: Albanian
[2024-08-09 10:32] VITALS: BP 145/71; PULSE 97; RESP 16; TEMP 36.8; O2SAT 95
--- NOTE | 2024-08-09 10:32 | ECG_ITS ---
Test Reason : EPIGASTRIC PAIN Blood Pressure : */* mmHG Vent. Rate : 94 BPM Atrial Rate : 94 BPM P-R Int : 156 ms QRS Dur : 74 ms QT Int : 348 ms P-R-T Axes : 31 18 15 degrees QTcB Int : 435 ms Normal sinus rhythm Normal ECG When compared with ECG of 14-Jul-2024 13:32, No significant change was found Referred By: Jonn Beach Electronically Signed By: PHILL MARCIAL
[2024-08-09 10:37] LABS: MANUAL DIFF FLAG NO
[2024-08-09 10:43] LABS: Basophils Percent Auto 0.3 % (0-2); Eosinophils Percent Auto 0.5 % (0-4); Hematocrit 42.3 % (37.0-47.0); Hemoglobin 14.4 g/dl (12.0-16.0); Imm Gran Abs Auto 0.06 X10*3/uL (0.00-0.03); Imm Gran Pct Auto 0.7 % (0.0-0.4); Lymphocytes Absolute Auto 2.7 X10*3/uL (1.2-4.9); Lymphocytes Percent Auto 31.6 % (20-40); Mean Corpuscular Hemoglobin 32.1 pg (27.0-33.0); Mean Corpuscular Volume 94.4 fL (80.0-98.0); Mean Platelet Volume 9.2 fL (9.4-12.3); Monocytes Absolute Auto 0.5 X10*3/uL (0.1-1.2); Monocytes Percent Auto 6.1 % (2-11); Neutrophils Absolute Auto 5.3 x10*3/uL (2.0-8.3); Neutrophils Percent Auto 60.8 % (45-73); Platelet Count 166 X10*3/uL (160-400); Red Blood Count 4.48 X10*6/uL (4.20-5.50); Red Cell Distribution Width 13.5 % (11.0-16.0); White Blood Count 8.7 X10*3/uL (4.8-10.8)
[2024-08-09 10:56] LABS: Alanine Aminotransferase 32 U/L (0-31); Albumin Level 4.7 g/dL (3.5-5.0); Alkaline Phosphatase 85 U/L (39-117); Anion Gap 12 (12-20); Aspartate Amino Transferase 35 U/L (5-31); Bilirubin Direct 0.2 mg/dL (0.0-0.5); Bilirubin Total 0.5 mg/dL (0.0-1.0); Blood Urea Nitrogen 8 mg/dL (9-16); Calcium 9.9 mg/dL (8.4-10.2); Carbon Dioxide 23 mmol/L (22-29); Chloride 109 mmol/L (96-108); Creatinine Clr Calc Pharmacy 85.3; Estimated Glomerular Filt Rate > 60; Glucose Random 116 mg/dL (60-115); Lipase 27 U/L (8-78); Potassium 3.9 mmol/L (3.3-5.1); Sodium 140 mmol/L (135-145); Total Protein 7.9 g/dL (6.5-8.0)
[2024-08-09] MEDS: ondansetron HCL 4 MG/2 ML VIAL IVPUSH (11:22)
[2024-08-09] MEDS: 0.9 % Sodium Chloride 1,000 ML 999 ML IV (11:23)
[2024-08-09 11:28] LABS: Beta-Hydroxybutyrate 0.24 mmol/L (0.02-0.27); Lipase 26 U/L (8-78)
[2024-08-09] MEDS: Magnesium Hydrox/Alum Hydrox 30 ML ORAL.SUSP PO (11:33)
[2024-08-09] MEDS: Sucralfate Oral Suspension 1 GM/10 ML ORAL.SUSP PO (11:33)
[2024-08-09] MEDS: Lidocaine HCl Viscous 2 % 15 ML SOLUTION PO (11:33)
[2024-08-09] MEDS: Morphine Sulfate 4 MG/ML CARTRIDGE IVPUSH ×2 (11:33→11:58)
[2024-08-09 12:29] VITALS: BP 138/67; PULSE 95; RESP 16; TEMP 36.3; O2SAT 95
[2024-08-09 12:33] VITALS: BP 138/67; PULSE 95; RESP 16; TEMP 36.3; O2SAT 95
--- OUTSIDE RECORDS SUMMARY | 2024-08-09 12:40 | XMS_ITS | Clinical Summary ---
Author Organization [facility] Address [address] [place] [address] Care Team Providers Care Head Teller Name Role Phone Pcp, Non-[facility] Primary Care [...] by mouth 2 (two) times daily for 90 days 180 Tablet 5 10/18/19 25 Active QUEtiapine 150 mg tabIndications: Severe recurrent major depression w/psychotic features, mood-congruent ([facility]) Take 1 Tablet by mouth nightly at bedtime for 90 days 90 Tablet 5 10/18/19 25 Active cloNIDine (CATAPRES) 0.1 mg tabletIndicatio ns:Generalized anxiety disorder TAKE 1 TABLET BY MOUTH TWICE DAILY 60 Tablet 1 5 07/20/19 25 Discontinu ed(Reorder (E-Cancel Not Sent)) QUEtiapine 150 mg tabIndications: Severe recurrent major depression w/psychotic features, mood-congruent (HCC-CMS) TAKE 1 TABLET BY MOUTH AT BEDTIME 30 Tablet 1 5 07/20/19 25 Discontinu ed(Reorder (E-Cancel Not Sent)) Active Problems Problem Noted Date Diagnosed Date Cervical stenosis (uterine cervix) 12/22/2023 History of cervical dysplasia 12/22/2023 HIV carrier (HCC-CMS) 12/22/2023 FH: total abdominal hysterec prachi and bilateral salpingo-oophorectomy 08/17/2023 Severe recurrent major depre ssion w/psychotic features, mood-congruent ([facility]) 06/07/2023 Overview (12/29/2023): Patient presents with a [...] Health Integration Plan Internal Follow up with [facility] 06/08 @ 11am Rule Out Diagnoses n/a Behavioral Health Diagnoses At this time Ishmael meets criteria for Visit Diagnoses: Problem List Items Addressed This Visit Generalized anxiety disorder PTSD (post-traumatic stress disorder) Cocaine abuse ([facility]) Severe major depression ([facility]) Assessment & Plan (07/19/2024 3:54 PM EDT): Assessment: symptoms under control Plan Continue Seroquel to 150 mg nightly Follow- up in 4 weeks Monitor for auditory hallucinations and mood symptoms Assessment & Plan (04/19/2024 1:26 PM EST): [...] Pap done today. Severe obesity ([facility]) 05/15/2023 Periodontal disease 08/20/2022 Symptomatic irreversible pulpitis 08/20/2022 History of cocaine use 05/25/2022 Overview (12/22/2023): Last Assessment & Plan: Continue Clonidine 0.1 mg BID. F/U with Sausage Inspector and cocaine support group. Dental caries 05/21/2022 Health care maintenance 04/09/2022 Overview (12/22/2023): Pap: 12/2021 NIL, HPV +, referred to [facility] for colpo 02/2022- DENISE II, tx w/ cold knife cone 12/2022 ASCUS HPV +; ECC negative-->S/p YEYO. Needs yearly pap Anal pap: Needs yearly pap-->was followed by [facility]. Need records. Message sent to Infectious Disease [...] She will be referred urgently to new [facility] Psychiatric prescriber for first appt within [...] provider will not be an employee of [facility]. Therefore she gives consent to share PHI. She will also F/U with [facility] Clinician as usual. Call [facility] with any issues or concerns. All her questions were answered and I have wished her well. She agrees with the plan. Assessment & Plan (07/19/2024 3:55 PM EDT): A: Symptoms under control P: Continue therapy Assessment & Plan (04/19/2024 1:27 PM EST): [...] 08/12/19 Overview (01/04/2022): pt previously resided in [place]

per [facility] no record found and should be treated.

RN and HIV coordinator unable to reach pt by phone. Positive depression screening 08/04/2018 Tobacco dependence syndrome 03/08/2012 Overview (12/22/2023): ?? Decreased from 3 PPD from 1 PPD ?? Patches at home Last Assessment & Plan: Patches if needed. Patient precontemplative. Cessation tobacco health benefits discussed. Human immunodeficiency virus infection ([facility]) 08/04/2011 Overview (12/22/2023): ?? Followed by [facility] ID ?? Well controlled with Biktarvy [...] virus [HIV] disease (diagnosed 2008, prior on casey; HSX) 03/07/2008 Generalized anxiety disorder 03/07/1958 Overview [...] treatment engagement. PLAN: 1. Follow up with [facility]: Recommended for follow-up: During Id appts 2. [...] PM EDT Behavioral Health Visit [facility] [address] [place] [address] [place] [phone] Kavya Martinez APRN Generalized anxiety disorder; Severe recurrent major depression w/psychotic features, mood-congruent ([facility]) from Last 3 Months Immunizations Immunization Administration Dates Next Due Flu, Preservative Free 11/12/2021 Hep A, adult 11/20/2009,09/01/2009 Hep B, Adult/Adol (ENERGIX/RECOMBIVAX) 2,11/20/2009,09/01/2009 INFLUENZA, SEASONAL, INJECTABLE 12/27/2013,11/24 MANOLO COVID-19 VACCINE 08/29/2020 MENINGOCOCCAL MCV4P (MENACTRA) 05/26/2017 MMR (MMR II/Priorix) 04/13/2012 PNEUMOCOCCAL CONJUGATE PCV 13 12/27/2013 PNEUMOCOCCAL CONJUGATE PCV 20 (Prevnar) 04/06/19 23 PNEUMOCOCCAL POLYSACCHARIDE PPV23 (Pneumovax 23) 05/26/2017,11/24/2009 [facility] State Funded Flu Vaccine 01/10/2013, 012 TDAP 02/04/2022,10/28/2011 Td(adult),2 Lf tetanus toxoi d,preservative free 09/01/2009 Family History Medical History Relation Name Comments No Known Problems Brother No Known Problems Mother Relation Name Status Comments Brother Alive Daughter has four kids t maria antonia away from [facility] 24 years ago, no connection to them. Father Mother Alive Social History Tobacco Use Types Packs/Day Years Used Date Smoking Tobacco: Every Day Cigarettes 1.5 32.4 Started: 1992 Smokeless Tobacco: Never Tobacco Cessation:Ready [...] Care Team (Late st Contact Info) Description 10/11/2024 2:00 PM EDT Behavioral Health Visit [facility] [address] [place] [phone] Kavya Martinez, SUGAR REFINERY SUPERVISOR [address] [facility] [place] [phone] Health Maintenance Due Date Last Done Comments Anxiety Screening 1976 Depression Monitoring 1976 LTBI Screening (#1) 1976 Relationship Safety Screening/Counseling 09/23/1991 Imm-Zoster, Recombinant (1 of 2) 09/23/1995 Imm-MMR (2 of 2 - Risk 2-dose series) 05/11/2012 04/13/2012 Breast Cancer Screening (Mammogram) 2016 CT Colonography 2021 Colonoscopy 2021 Colorectal Cancer Screening 2021 FIT/gFOBT 2021 Fecal DNA 2021 Flexible Sigmoidoscopy 2021 [id number] ( season) 2023 02/03/2022, 12/03/2021, 11/12/2021, Additional history exists Alcohol and Drug Screen 03/07/2024 Lipid Screening 05/18/2024 05/19/2023, 04/08, 11/01/2019 Diabetes Screening 08/16/2024 08/17/2023, 0 08/17/2023, 08/17/2023, Additional history exists Imm-Influenza (Season Ended) 2024 11/12/2021, 12/27/2013, 01/10/2013, Additional history exists Tobacco Cessation Counseling (#1) 12/21/2024 Imm-Meningococcal (3 - Risk 2-dose series) 05/03/2029 05/03/2024, 05/26/2017 Imm-DTaP/Tdap/Td (3 - Td or Tdap) 02/05/2032 02/04/2022, 10/28/2011, 09/01/2009 Imm-Hepatitis A Discontinued 11/20/2009, 09/01/2009 Imm-Hepatitis B Completed 07/01/2011, 11/05, 09/01/2009 Hepatitis C Screening Completed 11/01/2019 Imm-Pneumococcal Completed 04/06/2022, , 12/27/2013, Additional history exists Imm-HIB Aged Out No longer eligi ble based on patient's age to complete this topic Procedures Procedure Name Priority Date/Time Associated Diagnosis [...] DATA CONVERSION 04/28/2021 10:4 0 AM PST [facility] Provider Default HIE LAB Final Resu lt Performing Organization Address City/State/[facility] de Phone Number DATA CONVERSION * (ABNORMAL) A1C ROUTINE -GLYHB (04/28/2021 10:40 AM PST) HEMOGLOBIN A1C 5.7(A) 4.8 - 5.6 % 04/29/2021 3:10 AM PST DATA CONVERSION 04/28/2021 10:4 0 AM PST [facility] Provider Default HIE LAB Final Resu lt DATA CONVERSION * HEPATITIS C ANTIBODY-HCVAB (11/01/2019 5:24 AM PDT) HEPATITIS C ANTIBODY NON-REACTI VE NON-REACTI VE 11/03/2019 11:00 AM PDT DATA CONVERSION SIGNAL TO CUT-OFF 0.03 <1.00 11/03/2019 11:00 AM PDT DATA CONVERSION 11/01/2019 5:24 AM PDT us [facility] Provider Default HIE LAB Final Resu lt DATA CONVERSION from Last 3 Months or Most Recently Relevant to Health Maintenance Insurance [place] MEDICA[place] [facility] Care Teams Head Teller Relationship Specialty Start Date End Date Pcp, Non-[facility] PCP - General 11/14/23
== END 2024-08-09 12:33 | disposition home or self-care (01) ==
PROVIDERS: Emergency Provider Emergency Medicine; PCP Registered Nurse
DX: K21.9 Gastro-esophageal reflux disease without esophagitis (principal); R10.13 Epigastric pain; R10.2 Pelvic and perineal pain; R11.2 Nausea with vomiting, unspecified; F17.210 Nicotine dependence, cigarettes, uncomplicated; Z79.899 Other long term (current) drug therapy
CPT/HCPCS: 36415; 71045; 80053; 80076; 82010; 82248; 83690; 85025; 93005; 96361; 96374; 96375; 99284; 99285; J2270; J2405

== ENCOUNTER → 2024-08-09 10:32 | Outpatient (BNV) | payer MEDICAID, SELFPAY | PROVIDERS: Emergency Provider Emergency Medicine; PCP Registered Nurse; Visit Provider Internal Medicine | DX: R10.13 Epigastric pain (principal) | CPT/HCPCS: 93010 ==

== ENCOUNTER → 2024-08-09 10:34 | Outpatient (BNV) | payer MEDICAID, SELFPAY | PROVIDERS: Emergency Provider Emergency Medicine; PCP Registered Nurse; Visit Provider Radiology Diagnostic Radiology | DX: R06.00 Dyspnea, unspecified (principal) | CPT/HCPCS: 71045 ==

== ENCOUNTER 2024-08-10 12:18 | Outpatient (REF) | payer MEDICAID, SELFPAY ==
--- OUTSIDE RECORDS SUMMARY | 2024-08-10 12:34 | XMS_ITS | Clinical Summary ---
Author Organization [facility] Address [address] [place] [address] Care Team Providers Care Employment Clerk Name Role Phone Pcp, Non-Lchc Primary Care [...] Severe recurrent major depression w/psychotic features, mood-congruent ([facility]) Take 1 Tablet by mouth nightly at [...] recurrent major depre ssion w/psychotic features, mood-congruent ([facility]) 06/07/2023 Overview (12/29/2023): Patient presents with a [...] Health Integration Plan Internal Follow up with [facility] 06/08 @ 11am Rule Out Diagnoses n/a Behavioral Health Diagnoses At this time Ishmael meets criteria for Visit Diagnoses: Problem List Items Addressed This Visit Generalized anxiety disorder PTSD (post-traumatic stress disorder) Cocaine abuse ([facility]) Severe major depression ([facility]) Assessment & Plan (07/19/2024 3:54 PM EDT): [...] Rectal screening Pap done today. Severe obesity ([facility]) 05/15/2023 Periodontal disease 08/20/2022 Symptomatic irreversible pulpitis 08/20/2022 History of cocaine use 05/25/2022 Overview (12/22/2023): Last Assessment & Plan: Continue Clonidine 0.1 mg BID. F/U with Otologist and cocaine support group. Dental caries 05/21/2022 Health care maintenance 04/09/2022 Overview (12/22/2023): Pap: 12/2021 NIL, HPV +, referred to [facility] for colpo 02/2022- DENISE II, tx w/ cold knife cone 12/2022 ASCUS HPV +; ECC negative-->S/p YEYO. Needs yearly pap Anal pap: Needs yearly pap-->was followed by [facility]. Need records. Message sent to Infectious [...] She will be referred urgently to new [facility] Psychiatric prescriber for first appt within 1-2 [...] provider will not be an employee of [facility]. Therefore she gives consent to share PHI. She will also F/U with [facility] Clinician as usual. Call [facility] with any issues or concerns. All her [...] 08/12/19 Overview (01/04/2022): pt previously resided in [place]

per [facility] [...] health benefits discussed. Human immunodeficiency virus infection ([facility]) 08/04/2011 Overview (12/22/2023): ?? Followed by [facility] ID ?? Well controlled with Biktarvy ?? [...] EDT Behavioral Health Visit [facility] [address] [place] [address] [place] [phone] Kavya Martinez APRN Generalized anxiety disorder; Severe recurrent major depression w/psychotic features, mood-congruent ([facility]) from Last 3 Months Immunizations Immunization Administration Dates Next Due Flu, Preservative Free 11/12/2021 Hep A, adult 11/20/2009,09/01/2009 Hep B, Adult/Adol (ENERGIX/RECOMBIVAX) 2,11/20/2009,09/01/2009 INFLUENZA, SEASONAL, INJECTABLE 12/27/2013,11/24 MANOLO COVID-19 VACCINE 08/29/2020 MENINGOCOCCAL MCV4P (MENACTRA) 05/26/2017 MMR (MMR II/Priorix) 04/13/2012 PNEUMOCOCCAL CONJUGATE PCV 13 12/27/2013 PNEUMOCOCCAL CONJUGATE PCV 20 (Prevnar) 04/06/19 23 PNEUMOCOCCAL POLYSACCHARIDE PPV23 (Pneumovax 23) 05/26/2017,11/24/2009 [facility] State Funded Flu Vaccine 01/10/2013, 012 TDAP 02/04/2022,10/28/2011 Td(adult),2 Lf tetanus toxoi d,preservative free 09/01/2009 Family History Medical History Relation Name Comments No Known Problems Brother No Known Problems Mother Relation Name Status Comments Brother Alive Daughter has four kids t maria antonia away from [facility] 24 years ago, no connection to [...] EDT Behavioral Health Visit [facility] [address] [place] [phone] Kavya Martinez, DIGITAL MEDIA PLANNER [address] [facility] [place] [phone] Health Maintenance Due Date Last Done Comments Anxiety Screening 1976 Depression Monitoring 1976 LTBI Screening (#1) 1976 Relationship Safety Screening/Counseling 09/23/1991 Imm-Zoster, Recombinant (1 of 2) 09/23/1995 Imm-MMR (2 of 2 - Risk 2-dose series) 05/11/2012 04/13/2012 Breast Cancer Screening (Mammogram) 2016 CT Colonography 2021 Colonoscopy 2021 Colorectal Cancer Screening 2021 FIT/gFOBT 2021 Fecal DNA 2021 Flexible Sigmoidoscopy 2021 [id number] ( season) 2023 02/03/2022, 12/03/2021, 11/12/2021, Additional [...] DATA CONVERSION 04/28/2021 10:4 0 AM PST [facility] Provider Default HIE LAB Final Resu lt Performing Organization Address City/State/[facility] de Phone Number DATA CONVERSION * (ABNORMAL) A1C ROUTINE -GLYHB (04/28/2021 10:40 AM PST) HEMOGLOBIN A1C 5.7(A) 4.8 - 5.6 % 04/29/2021 3:10 AM PST DATA CONVERSION 04/28/2021 10:4 0 AM PST [facility] Provider Default HIE LAB Final Resu lt DATA CONVERSION * HEPATITIS C ANTIBODY-HCVAB (11/01/2019 5:24 AM PDT) HEPATITIS C ANTIBODY NON-REACTI VE NON-REACTI VE 11/03/2019 11:00 AM PDT DATA CONVERSION SIGNAL TO CUT-OFF 0.03 <1.00 11/03/2019 11:00 AM PDT DATA CONVERSION 11/01/2019 5:24 AM PDT us [facility] Provider Default HIE LAB Final Resu lt DATA CONVERSION from Last 3 Months or Most Recently Relevant to Health Maintenance Insurance [place] MEDICAID [facility] Care Teams Employment Clerk Relationship Specialty Start Date End Date Pcp, Non-Lchc PCP - General 11/14/23
[2024-08-13 15:32] LABS: HIV RNA PCR Qn Copies 89 copies/mL (NOT DETECTED); HIV RNA PCR Qn Log Copies 1.95 (NOT DETECTED)
== END 2024-08-10 12:19 | disposition home or self-care (01) ==
LOC: HO.HHCL 12:18
PROVIDERS: Visit Provider Internal Medicine
DX: Z21 Asymptomatic human immunodeficiency virus [HIV] infection status (principal)
CPT/HCPCS: 36415; 82550; 87536

== ENCOUNTER → 2024-08-16 13:30 | Outpatient (BNV) | payer MEDICAID, SELFPAY | PROVIDERS: PCP Registered Nurse; Visit Provider Internal Medicine | DX: Z12.31 Encounter for screening mammogram for malignant neoplasm of breast (principal) | CPT/HCPCS: 77063; 77067 ==

== ENCOUNTER 2024-08-16 13:33 | Outpatient (REF) | payer MEDICAID, SELFPAY ==
--- OUTSIDE RECORDS SUMMARY | 2024-08-16 15:52 | XMS_ITS | Clinical Summary ---
Author Organization [facility] Address [address] [place] [address] Care Team Providers Care Deputy Sheriff Bailiff Name Role Phone Pcp, Non-Lchc Primary Care [...] Severe recurrent major depression w/psychotic features, mood-congruent ([facility]) Take 1 Tablet by mouth nightly at [...] recurrent major depre ssion w/psychotic features, mood-congruent ([facility]) 06/07/2023 Overview (12/29/2023): Patient presents with a [...] Health Integration Plan Internal Follow up with [facility] 06/08 @ 11am Rule Out Diagnoses n/a Behavioral Health Diagnoses At this time Ishmael meets criteria for Visit Diagnoses: Problem List Items Addressed This Visit Generalized anxiety disorder PTSD (post-traumatic stress disorder) Cocaine abuse ([facility]) Severe major depression ([facility]) Assessment & Plan (07/19/2024 3:54 PM EDT): [...] Rectal screening Pap done today. Severe obesity ([facility]) 05/15/2023 Periodontal disease 08/20/2022 Symptomatic irreversible pulpitis 08/20/2022 History of cocaine use 05/25/2022 Overview (12/22/2023): Last Assessment & Plan: Continue Clonidine 0.1 mg BID. F/U with [employer] and cocaine support group. Dental caries 05/21/2022 Health care maintenance 04/09/2022 Overview (12/22/2023): Pap: 12/2021 NIL, HPV +, referred to [facility] for colpo 02/2022- DENISE II, tx w/ cold knife cone 12/2022 ASCUS HPV +; ECC negative-->S/p YEYO. Needs yearly pap Anal pap: Needs yearly pap-->was followed by [facility]. Need records. Message sent to Infectious Disease [...] She will be referred urgently to new [facility] Psychiatric prescriber for first appt within [...] provider will not be an employee of [facility]. Therefore she gives consent to share PHI. She will also F/U with [facility] Clinician as usual. Call [facility] with any issues or concerns. All [...] (01/04/2022): pt previously resided in [place]

per [facility] no record found and should be treated.

RN and HIV coordinator unable to reach pt by phone. Positive depression screening 08/04/2018 Tobacco dependence syndrome 03/08/2012 Overview (12/22/2023): ?? Decreased from 3 PPD from 1 PPD ?? Patches at home Last Assessment & Plan: Patches if needed. Patient precontemplative. Cessation tobacco health benefits discussed. Human immunodeficiency virus infection ([facility]) 08/04/2011 Overview (12/22/2023): ?? Followed by [facility] ID ?? Well controlled with Biktarvy [...] treatment engagement. PLAN: 1. Follow up with [facility]: Recommended for follow-up: During Id appts 2. [...] PM EDT Behavioral Health Visit [facility] [address] [place] [address] [place] [phone] Kavya Martinez APRN Generalized anxiety disorder; Severe recurrent major depression w/psychotic features, mood-congruent ([facility]) from Last 3 Months Immunizations Immunization Administration Dates Next Due Flu, Preservative Free 11/12/2021 Hep A, adult 11/20/2009,09/01/2009 Hep B, Adult/Adol (ENERGIX/RECOMBIVAX) 2,11/20/2009,09/01/2009 INFLUENZA, SEASONAL, INJECTABLE 12/27/2013,11/24 MANOLO COVID-19 VACCINE 08/29/2020 MENINGOCOCCAL MCV4P (MENACTRA) 05/26/2017 MMR (MMR II/Priorix) 04/13/2012 PNEUMOCOCCAL CONJUGATE PCV 13 12/27/2013 PNEUMOCOCCAL CONJUGATE PCV 20 (Prevnar) 04/06/19 23 PNEUMOCOCCAL POLYSACCHARIDE PPV23 (Pneumovax 23) 05/26/2017,11/24/2009 [facility] State Funded Flu Vaccine 01/10/2013, 012 TDAP 02/04/2022,10/28/2011 Td(adult),2 Lf tetanus toxoi d,preservative free 09/01/2009 Family History Medical History Relation Name Comments No Known Problems Brother No Known Problems Mother Relation Name Status Comments Brother Alive Daughter has four kids t maria antonia away from [facility] 24 years ago, no [...] EDT Behavioral Health Visit [facility] [address] [place] [phone] Kavya Martinez, BREASTER [address] [facility] [place] [phone] Health Maintenance Due Date Last Done Comments Anxiety Screening 1976 Depression Monitoring 1976 LTBI Screening (#1) 1976 Relationship Safety Screening/Counseling 09/23/1991 Imm-Zoster, Recombinant (1 of 2) 09/23/1995 Imm-MMR (2 of 2 - Risk 2-dose series) 05/11/2012 04/13/2012 Breast Cancer Screening (Mammogram) 2016 CT Colonography 2021 Colonoscopy 2021 Colorectal Cancer Screening 2021 FIT/gFOBT 2021 Fecal DNA 2021 Flexible Sigmoidoscopy 2021 [id number]-06 ( season) 2023 02/03/2022, 12/03/2021, 11/12/2021, Additional [...] LAB Final Resu lt Performing Organization Address City/State/[facility] de Phone Number DATA CONVERSION * (ABNORMAL) [...] DATA CONVERSION 11/01/2019 5:24 AM PDT us [facility] Provider Default HIE LAB Final Resu lt DATA CONVERSION from Last 3 Months or Most Recently Relevant to Health Maintenance Insurance [place] [facility] Care Teams Deputy Sheriff Bailiff Relationship Specialty Start Date End Date Pcp, Non-Lchc PCP - General 11/14/23
== END 2024-08-16 13:34 | disposition home or self-care (01) ==
LOC: HO.MAMMO 13:33
PROVIDERS: PCP Registered Nurse; Visit Provider Registered Nurse
DX: Z12.31 Encounter for screening mammogram for malignant neoplasm of breast (principal)
CPT/HCPCS: 77063; 77067

== ENCOUNTER 2024-10-03 13:36 | Outpatient (REF) | payer MEDICAID, SELFPAY ==
--- NOTE | ~2024-10-03 | MM_ITS ---
EXAMINATION: MM DIAGNOSTIC DIGITAL BREAST TOMOSYNTHESIS, LEFT Limited left breast ultrasound. CLINICAL INFORMATION: Call back from screening for focal asymmetry in the lower central left breast anterior depth. Patient describes previous bruises on left breast which has since healed. COMPARISON: Mammography: A relevant priors on PACS. TECHNIQUE: Digital breast tomosynthesis is performed in both the craniocaudal and mediolateral oblique views along with computer-aided detection (CAD). Synthesized 2D images are generated from the tomosynthesis. FINDINGS: There are scattered areas of fibroglandular density (ACR BI-RADS breast composition Category b). Focal asymmetry in the lower central left breast anterior depth persist on additional imaging projections. There are no significant masses, abnormal calcifications, or other abnormalities. Targeted color Doppler ultrasound in the left breast scanning from 40 8:00 demonstrates normal fibroglandular breast tissue. There is an area of hyperechoic mixed echogenicity in the left breast at 5:00 3 cm from the nipple measuring 11 x 7 x 6 mm this could represent a evolving hematoma. MM/MM tomosynthesis added views L IMPRESSION: Mixed hyperechoic and hypoechoic oval mass in the left breast at 5:00 3 cm from the nipple correlating with the focal asymmetry on mammography which could represent a hematoma given patient's history of trauma and other bruises in the left breast. Recommend 3 month follow-up for further evaluation and resolution. ASSESSMENT: BI-RADS BI-RADS 3 - Probably benign finding(s) - 6 month follow-up suggested 3 month follow-up ultrasound recommended. RECOMMENDATION: 1-3 Months F/U Results were discussed with the patient at time of visit. Recommend 3 month follow-up ultrasound for further evaluation and follow-up to resolution to exclude underlying malignancy. This patient's information was entered into a reminder system with a target due date for their next mammogram. Electronically signed by: So Cruz DO 10/03/2024 02:31 PM EDT
== END 2024-10-03 13:37 | disposition home or self-care (01) ==
LOC: HO.MAMMO 13:36
PROVIDERS: PCP Registered Nurse; Visit Provider Registered Nurse
DX: N64.89 Other specified disorders of breast (principal)
CPT/HCPCS: 76642; 77061; 77065

== ENCOUNTER → 2024-10-03 14:00 | Outpatient (BNV) | payer MEDICAID, SELFPAY | PROVIDERS: PCP Registered Nurse; Visit Provider Internal Medicine | DX: K76.0 Fatty (change of) liver, not elsewhere classified (principal); N63.23 Unspecified lump in the left breast, lower outer quadrant | CPT/HCPCS: 74177; 76642; 77061; 77065 ==

== ENCOUNTER 2024-10-03 14:31 | Emergency (ER) | payer MEDICAID, SELFPAY ==
--- NOTE | ~2024-10-03 | CT_ITS ---
CLINICAL HISTORY: Rt sided pain and tenderness Exam: CT Abdomen and Pelvis With IV Contrast Comparison: 07/14/2024 Findings: The liver is enlarged with fatty infiltration. No biliary abnormalities. The gallbladder is surgically absent. The spleen is normal in size No pancreatic ductal dilatation No hydronephrosis no urinary tract calculi or obstruction Normal bowel caliber. No inflammatory bowel disease. No diverticulitis. The appendix is normal. No free fluid/free air No vascular abnormalities. No adenopathy. Bladder outline is smooth. There has been hysterectomy. No suspicious skeletal lesions. Impression : Enlarged fatty liver. Otherwise unremarkable. This document has been electronically signed by: Kevon Muñoz MD on 10/03/2024 19:45:16
[2024-10-03 14:39] VITALS: BP 133/70; PULSE 98; RESP 16; TEMP 36.5; O2SAT 99; BMI 36.6
[2024-10-03 16:00] VITALS: BP 112/62; PULSE 93; RESP 22; TEMP 36.5; O2SAT 100
--- NOTE | 2024-10-03 16:56 | ED.GENADULT ---
HPI - General Adult General Chief complaint: Abdominal Pain Stated complaint: abd pain, vomiting blood Time Seen by Provider: 10/03/24 16:55 History of Present Illness ED Provider: Vamsi KAUR narrative: The patient is a 49-year-old woman with well-controlled HIV who has been having problems with the abdominal pain for several months and is scheduled to have an appointment with a forest pathology associate professor in October. She was last seen in the emergency room almost 2 months ago on August 09 for epigastric abdominal pain that was felt to be related to gastritis. She was prescribed sucralfate. She says that she has had some worsening pain over the last couple of weeks which has been much worse over the last 3 days and which she feels is very different from the pain that she had when she was here in early August. She says this pain is mostly on the right side of her abdomen and she feels that her abdomen is significantly more distended than it has been in the past. She has no history of significant liver disease that she is aware of. She denies alcohol use. She has not had any swelling in her legs. No definite fever. She has had nausea and vomiting over the last few days. She went to her primary care doctor's office today and was referred to the emergency room. A friend then drove her to the emergency room. She reports a history of a cholecystectomy. She also has a midline infraumbilical scar that she says was done for control. Related Data Home Medications ?Medication ?Instructions ?Recorded ?Confirmed atovaquone 750 mg/5 mL oral 750 mg PO BID 02/18/22 10/24/23 suspension bictegravir 50 mg-emtricitabine 1 tab PO DAILY 02/18/22 10/24/23 200 mg-tenofovir alafenam 25 mg tablet (Biktarvy) blood pressure test kit-large #1 ea 02/18/22 10/24/23 rosuvastatin 20 mg tablet 20 mg PO BEDTIME 02/18/22 10/24/23 sumatriptan succinate 50 mg tablet 50 mg PO Q8H PRN migraine 02/18/22 10/24/23 chlorthalidone 25 mg tablet 25 mg PO QAM 09/17/22 10/24/23 quetiapine 400 mg tablet 400 mg PO BEDTIME 09/17/22 10/24/23 olmesartan 20 mg tablet 20 mg PO DAILY 01/04/23 10/24/23 Previous Rx's ?Medication ?Instructions ?Recorded calcium polycarbophil 625 mg 1,250 mg (2 x 625 mg) PO DAILY 30 02/02/23 tablet (FiberCon) days #60 tabs omeprazole 40 mg capsule,delayed 40 mg PO .bid #60 caps 05/27/23 release fluticasone furoate 200 1 inh inhalation DAILY 30 days #1 06/21/23 mcg-vilanterol 25 mcg/dose ea inhalation powder (Breo Ellipta) umeclidinium 62.5 mcg/actuation 1 inh inhalation DAILY 30 days #1 06/21/23 blister powder for inhalation ea (Incruse Ellipta) docusate sodium 100 mg capsule 200 mg (2 x 100 mg) PO BEDTIME #60 11/08/23 (Stool Softener) caps hmqbmiowra-vkznnmnicftrv-mtpmxhvj 1 tab PO Q6H PRN haeadace #20 tabs 01/28/24 50 mg-325 mg-40 mg tablet ondansetron 4 mg disintegrating 4 mg PO Q6-8H PRN nausea and 01/28/24 tablet vomiting #7 tabs sumatriptan succinate 50 mg tablet 50 mg PO Q2H PRN migraine headache 01/28/24 (Imitrex) #10 tabs cefuroxime axetil 250 mg tablet 250 mg PO BID 7 days #14 tabs 05/18/24 sucralfate 1 gram tablet (Carafate) 1 g PO Q6H 7 days #28 tabs 08/09/24 Allergies Allergy/AdvReac Type Severity Reaction Status Date / Time hydrocodone (From VICODIN) Allergy Intermediate RASH, Verified 10/03/24 14:41 SWELLING Review of Systems Review of Systems: Yes all other systems are reviewed and are negative [facility] Past Medical History Medical History AIN grade I Morbid obesity Asthma MAURICE (obstructive sleep apnea) GERD (gastroesophageal reflux disease) HIV (human immunodeficiency virus infection) Surgical History Hx of colonoscopy History of partial hysterectomy History of esophagogastroduodenoscopy (EGD) Family History Family History Unknown No problems noted. Social History Social History Household Members Other:: Lives with her mother, 4 kids live in [place] Alcohol intake: former Patient Tobacco Use Status: Current everyday Tobacco user Cigarette Packs Per Day: 1.5 Cigarettes Per Day: 30.0 Years Smoked: 46 Smoked in Last 30 Days: Yes Use of substances other than those prescribed or required for medical reasons: No Advance Directives: No Advance Directives Information Provided: Yes Do you have a plan to hurt others: No Plan Current occupational status: disabled Physical Exam ED Vital Signs: Vital Signs - 24 hr 10/03/24 17:14 10/03/24 18:27 10/03/24 20:07 Temperature 97.5 F 97.5 F Pulse Rate 94 94 Respiratory Rate 20 16 16 Blood Pressure 128/59 L 128/59 L Pulse Oximetry 100 100 Oxygen Delivery Method Room Air Room Air BMI result Body Mass Index 36.6 Const Other: The patient is a somewhat chronically ill-appearing 49-year-old. She was awake and alert, pleasant and cooperative. Orientation/consciousness: patient oriented x3 HENMT Other: The face is symmetrical. ?Mucous membranes moist. Eyes Other: Pupils are round equal, conjunctivae are clear, extraocular movements intact Neck Neck: Yes normal visual inspection, Yes full ROM and Yes no lymphadenopathy Resp Effort & Inspection: normal respiratory effort Auscultation: clear to auscultation bilaterally Cardio Other: No murmur heard Rate: regular rate Rhythm: regular rhythm Heart sounds: S1 normal heart sound present and S2 normal heart sound present GI Other: The patient has a protuberant abdomen. She is tender in the right side. Skin Other: Skin is dry and unremarkable Neuro General: patient oriented x3, tone normal, no focal motor deficits and CN's II-XI intact bilaterally Extrem Other: There is no calf swelling or tenderness. No asymmetry. No peripheral edema. Medications Administered Discontinued Medications Generic Name Dose Route Start Last Admin Trade Name Freq PRN Reason Stop Dose Admin Droperidol 0.625 mg 10/03/24 17:03 10/03/24 17:14 Droperidol 5 Mg/2 Ml Vial IVPUSH 10/03/24 17:04 0.625 mg ONCE ONE Administration Sodium Chloride 1,000 mls @ 999 mls/hr 10/03/24 17:15 10/03/24 18:20 Ns IV 10/03/24 18:15 Infused .Q1H1M JUAN Infusion Iohexol 100 ml 10/03/24 18:40 10/03/24 18:40 Iohexol 350 Mg/Ml 100 Ml Infus..Btl IV 10/03/24 18:41 100 ml ONCE ONE Administration Morphine Sulfate 4 mg 10/03/24 17:03 10/03/24 17:14 Morphine Sulfate 4 Mg/Ml Cartridge IVPUSH 10/03/24 17:04 4 mg ONCE ONE Administration Protocol Medical Decision Making Medical Decision Making MDM Narrative: The patient is a 49-year-old woman with a controlled I HIV who presented with 3 days of right-sided abdominal pain. She initially looked quite uncomfortable. She was tender in the right abdomen. She also felt that her abdomen was much larger than it has been recently. Labs were done that were unremarkable and a CT scan of the abdomen and pelvis was done as well. The CT shows fatty liver but no other acute findings. The patient seemed to feel much better after treatment and seemed comfortable being discharged at that point. She has a an appointment with the gastroenterology in about 2 weeks and she is encouraged to keep this appointment. Lab Data 10/03/24 17:11 10/03/24 17:11 Labs: Lab Results 10/03/24 10/03/24 Range/Units 17:11 18:29 WBC 10.2 (4.8-10.8) X10*3/uL RBC 4.12 L (4.20-5.50) X10*6/uL Hgb 13.6 (12.0-16.0) g/dl Hct 38.7 (37.0-47.0) % MCV 93.9 (80.0-98.0) fL MCH 33.0 (27.0-33.0) pg MCHC 35.1 H (31.0-35.0) g/dl RDW 13.8 (11.0-16.0) % Plt Count 186 (160-400) X10*3/uL MPV 8.9 L (9.4-12.3) fL Immature Gran % (Auto) 0.8 H (0.0-0.4) % Neut % (Auto) 55.3 (45-73) % Lymph % (Auto) 37.3 (20-40) % [place] % (Auto) 5.5 (2-11) % Eos % (Auto) 0.7 (0-4) % Baso % (Auto) 0.4 (0-2) % Lymph # (Auto) 3.8 (1.2-4.9) X10*3/uL [place] # (Auto) 0.6 (0.1-1.2) X10*3/uL Eos # (Auto) 0.1 (0.0-0.4) X10*3/uL Baso # (Auto) 0.0 (0.0-0.2) X10*3/uL Abs Immat Gran (auto) 0.08 H (0.00-0.03) X10*3/uL Absolute Neuts (auto) 5.7 (2.0-8.3) x10*3/uL Absolute Nucleated RBC 0.000 (0.0-0.012) X10*3/uL Nucleated RBC % (auto) 0.0 (0.0-0.2) /100WBC Sodium 139 (135-145) mmol/L Potassium 3.8 (3.3-5.1) mmol/L Chloride 107 (96-108) mmol/L Carbon Dioxide 24 (22-29) mmol/L Anion Gap 12 (12-20) BUN 8 L (9-16) mg/dL Creatinine 0.66 (0.5-1.4) mg/dL Estim Creat Clear Calc 96.8 Estimated GFR > 60 Random Glucose 95 (60-115) mg/dL Calcium 8.8 D (8.4-10.2) mg/dL Magnesium 1.9 (1.6-2.6) mg/dL Total Bilirubin 0.4 (0.0-1.0) mg/dL Direct Bilirubin 0.1 (0.0-0.5) mg/dL AST 31 (5-31) U/L ALT 29 (0-31) U/L Alkaline Phosphatase 85 (39-117) U/L C-Reactive Protein 0.65 H (< or = 0.50) mg/dL Total Protein 7.3 (6.5-8.0) g/dL Albumin 4.3 (3.5-5.0) g/dL Lipase 22 (8-78) U/L Urine Color Yellow Urine Appearance Clear Urine pH 6.5 (5.0-9.0) Ur Specific [place] 1.015 (1.005-1.025) Urine Protein Negative (Neg-Trace) mg/dL Urine Glucose (UA) Negative (Negative) mg/dL Urine Ketones Trace (Negative) mg/dL Urine Blood Negative (Negative) Urine Nitrite Negative (Negative) Ur Leukocyte Esterase Negative (Negative) Discharge Plan Discharge Clinical Impression: Right sided abdominal pain, Fatty liver Patient Disposition: Home, Self-Care Additional Instructions: Your testing in the emergency room today does not show any dangerous process. Your blood testing is reassuring. Your CAT scan shows some fat in your liver but no acutely dangerous process. Please plan on keeping your appointment with your forest pathology associate professor in 2 weeks. Stay in touch with your regular doctor as needed for additional advice. Return to the emergency room if significantly worse. Prescriptions: No Action omeprazole 40 mg capsule,delayed release(DR/EC) 40 mg PO .bid Qty: 60 6RF fluticasone furoate-vilanterol [Breo Ellipta] 200-25 mcg/dose blister with device 1 inh inhalation DAILY 30 Days Qty: 1 6RF Incruse Ellipta 62.5 mcg/actuation blister with device 1 inh inhalation DAILY 30 Days Qty: 1 6RF docusate sodium [Stool Softener] 100 mg capsule 200 mg PO BEDTIME Qty: 60 5RF sumatriptan succinate [Imitrex] 50 mg tablet 50 mg PO Q2H PRN (Reason: migraine headache) Qty: 10 0RF Rx Instructions: do not exceed 2 doses per 24 hrs iewyciputt-vlqfbjlaagfma-jztk 50-325-40 mg tablet 1 tab PO Q6H PRN (Reason: haeadace) Qty: 20 0RF ondansetron 4 mg tablet,disintegrating 4 mg PO Q6-8H PRN (Reason: nausea and vomiting) Qty: 7 0RF sucralfate [Carafate] 1 gram tablet 1 g PO Q6H 7 Days Qty: 28 0RF olmesartan 20 mg tablet 20 mg PO DAILY cefuroxime axetil 250 mg tablet 250 mg PO BID 7 Days Qty: 14 0RF Biktarvy 50-200-25 mg tablet 1 tab PO DAILY sumatriptan succinate 50 mg tablet 50 mg PO Q8H PRN (Reason: migraine) (DME) blood pressure test kit-large Kit See Rx Instructions .ROUTE .MEDSUPPLY Qty: 1 Rx Instructions: As directed rosuvastatin 20 mg tablet 20 mg PO BEDTIME atovaquone 750 mg/5 mL suspension 750 mg PO BID quetiapine 400 mg tablet 400 mg PO BEDTIME chlorthalidone 25 mg tablet 25 mg PO QAM calcium polycarbophil [FiberCon] 625 mg tablet 1,250 mg PO DAILY 30 Days Qty: 60 3RF Referrals: [facility] [Provider Group, Gastroenterology] [place]Fanny, CORRECTIONS COUNSELOR [Primary Care Provider, Medical] Interventions: ED Discharge Assessment Last Done: 10/03/24 20:07 Discharge Date/Time: 10/03/24 20:07 Print Language: Monegasque
[2024-10-03 17:14] VITALS: RESP 20
[2024-10-03 17:16] LABS: MANUAL DIFF FLAG NO
[2024-10-03 17:19] LABS: Hematocrit 38.7 % (37.0-47.0); Hemoglobin 13.6 g/dl (12.0-16.0); Imm Gran Abs Auto 0.08 X10*3/uL (0.00-0.03); Imm Gran Pct Auto 0.8 % (0.0-0.4); Lymphocytes Absolute Auto 3.8 X10*3/uL (1.2-4.9); Mean Corpuscular HGB Conc 35.1 g/dl (31.0-35.0); Mean Corpuscular Hemoglobin 33.0 pg (27.0-33.0); Mean Corpuscular Volume 93.9 fL (80.0-98.0); NRBC Abs Auto 0.000 X10*3/uL (0.0-0.012); NRBC Pct Auto 0.0 /100WBC (0.0-0.2); Platelet Count 186 X10*3/uL (160-400); Red Blood Count 4.12 X10*6/uL (4.20-5.50); White Blood Count 10.2 X10*3/uL (4.8-10.8)
[2024-10-03 17:32] LABS: Alanine Aminotransferase 29 U/L (0-31); Albumin Level 4.3 g/dL (3.5-5.0); Alkaline Phosphatase 85 U/L (39-117); Anion Gap 12 (12-20); Aspartate Amino Transferase 31 U/L (5-31); Blood Urea Nitrogen 8 mg/dL (9-16); Calcium 8.8 mg/dL (8.4-10.2); Carbon Dioxide 24 mmol/L (22-29); Chloride 107 mmol/L (96-108); Creatinine Clr Calc Pharmacy 96.8; Estimated Glomerular Filt Rate > 60; Lipase 22 U/L (8-78); Magnesium 1.9 mg/dL (1.6-2.6); Potassium 3.8 mmol/L (3.3-5.1); Sodium 139 mmol/L (135-145); Total Protein 7.3 g/dL (6.5-8.0)
[2024-10-03 18:27] VITALS: BP 128/59; PULSE 94; RESP 16; TEMP 36.4; O2SAT 100
[2024-10-03 18:34] LABS: Appearance Urine Clear; Glucose Urine UA Negative (Negative); PH 6.5 (5.0-9.0); Specific Gravity - Urine 1.015 (1.005-1.025)
[2024-10-03] MEDS: iohexoL 350 MG/ML 100 ML INFUS..BTL IV (18:40)
[2024-10-03 20:07] VITALS: BP 128/59; PULSE 94; RESP 16; TEMP 36.4; O2SAT 100
== END 2024-10-03 20:07 | disposition home or self-care (01) ==
PROVIDERS: Emergency Provider Emergency Medicine; PCP Registered Nurse
DX: K76.0 Fatty (change of) liver, not elsewhere classified (principal); R10.9 Unspecified abdominal pain; R10.13 Epigastric pain; B20 Human immunodeficiency virus [HIV] disease; K21.9 Gastro-esophageal reflux disease without esophagitis; Z79.899 Other long term (current) drug therapy
CPT/HCPCS: 36415; 74177; 80048; 80076; 81003; 83690; 83735; 85025; 86140; 96361; 96374; 96375; 99284; 99285; J1790; J2270; Q9967

== ENCOUNTER 2024-10-15 16:01 | Outpatient (AMB) | payer MEDICAID, SELFPAY ==
--- OUTSIDE RECORDS SUMMARY | 2024-10-11 14:00 | XMS_ITS | Encounter Summary ---
Author Organization [facility] Address [address] [place] [address] Care Team Providers Care Area Representative Name Role Phone Pcp, Non-[facility] Primary Care Provider Unavailabl e Reason for Visit * Reason Comments Follow Up Encounter Details Date Type Department Care Team ([facility] st Contact Info) Description 10/11/2024 2:00 PM EDT Behavioral Health Visit [facility] [address] [place] [phone] Kavya Martinez APRN [address] [facility] [place] [id number] Social History Tobacco Use Types Packs/Day Years [...] Martinez APRN - 10/11/2024 2:21 PM EDT [facility] OFFICE VISIT Name: Ishmael Guadarrama : 1975 PCP: Non-[facility] Pcp ASSESSMENT AND PLAN Problem [...] Upcoming Encounters Date Type Department Care Team ([facility] st Contact Info) Description 11/29/2024 4:00 PM EDT Behavioral Health Visit [facility] [address] [place] [phone] Kavya Martinez APRN [address] [facility] [place] [id number] documented as of this encounter Visit Diagnoses Diagnosis Severe recurrent major depression w/psychotic features, mood-congruent (CMS & [facility]-HCC)- Primary Major depressive disorder, recurrent episode, severe, specified as with psychotic behavior PTSD (post-traumatic stress disorder) Posttraumatic stress disorder Generalized anxiety disorder documented in this encounter Care Teams Area Representative Relationship Specialty Start Date End Date Pcp, Non-hc PCP - General 11/14/23 documented as of this encounter
--- NOTE | 2024-10-15 16:12 | A.OFFVIS_ITS ---
Vital Signs 10/15/24 16:13 Height 4 ft 11 in Weight 174 lb BMI 35.1 BP 130/64 Blood Pressure Location Rt brachial Position Sitting Pulse 86 Pulse Source Pulse Oximeter Pulse Oximetry (%) 98 Oxygen Delivery Method Room Air Intake Visit Reasons: fatty liver, abd pain pt l/s 01/27 Intake Note: Est pt for initial visit with new provider. Last seen by NATALIYA 2022. Procedure in 2 024. [facility] mgmt. CC: C.O. epigastric pain becoming progressively worse over the last few months. Pt denies any additional sx but is reporting that she is due for colo/egd. Electronic Plotting System Operator Required: No Electronic Plotting System Operator Services: Electronic Plotting System Operator Offered & Declined Accompanied by: Self / Same As Patient Allergies hydrocodone (From VICODIN) Allergy (Intermediate, Verified 10/15/24 16:13) RASH, SWELLING HPI HPI fatty liver, abd pain pt l/s 01/27: Details: COLONOSCOPY Findings: Terminal Ileum-normal Cecum:normal Ascending Colon: normal Transverse Colon -normal Descending Colon:normal Sigmoid Colon: normal Rectum: Retroflexion with small internal hemorrhoids seen, grade I Anorectum - normal Intervention: none Colon preparation: [place] Bowel Preparation Scale Right colon; 1-2 (cecum with thick debris) Transverse colon: 3 Left colon; 3 (0 = Unprepared colon segment with mucosa not seen due to solid stool that cannot be cleared. 1 = Portion of mucosa of the colon segment seen, but other areas of the colon segment not well seen due to staining, residual stool and/or opaque liquid. 2 = Minor amount of residual staining, small fragments of stool and/or opaque liquid, but mucosa of colon segment seen well. 3 = Entire mucosa of colon segment seen well with no residual staining, small fragments of stool or opaque liquid) Impression and Post Procedure Diagnosis: internal hemorrhoids Plan: High fiber diet leaflet Avoid straining at stool, epsom salts and sitz bath, anusol supps or cream Repeat Colonoscopy in 1-2 years due to fair right sided prep or earlier if clinically indicated TODAY'S VISIT Patient is here today for requested visit. Previously seen by Chelsy FALL. Had colonoscopy done in July of 2023. Patient had suboptimal prep and was recommended to return for colorectal screening in 1-2 years. Patient reports that in the past several months she has been having epigastric pain postprandially. Patient states that no matter what she eats she will have a epigastric pain, abdominal bloating. Currently she is taking omeprazole twice a day. Was originally taking pantoprazole, however PCP switched her to omeprazole. Neither pantoprazole or omeprazole was helping her. Patient reports also epigastric pain pain in the left upper quadrant and severe bloa ting. Patient reports that she is not moving her bowels same. Sometimes postprandial diarrhea and sometimes feels like she is unable to empty completely even when she has the diarrhea. Patient also reports to be constipated. Denies melena, hematochezia, unintentional weight loss or ribbon like stools. Patient was seen few times in the ER last visit was couple weeks ago. Patient went to ED for nausea, vomiting, epigastric pain and right upper quadrant pain. Patient had CT scan which showed fatty liver otherwise no acute processes found. Patient had no leukocytosis, normal lipase and liver enzymes. [facility] Medical History AIN grade I Morbid obesity Asthma MAURICE (obstructive sleep apnea) GERD (gastroesophageal reflux disease) HIV (human immunodeficiency virus infection) Surgical History Hx of colonoscopy History of partial hysterectomy History of esophagogastroduodenoscopy (EGD) Family History Unknown No problems noted. Social History Household Members Other:: Lives with her mother, 4 kids live in [place] Alcohol intake: former Patient Tobacco Use Status: Current everyday Tobacco user Cigarette Packs Per Day: 1.5 Cigarettes Per Day: 30.0 Years Smoked: 46 Current occupational status: disabled Physical Exam Vital Signs: Last Vital Signs Pulse 86 10/15/24 16:13 BP 130/64 10/15/24 16:13 Pulse Ox 98 10/15/24 16:13 Oxygen Delivery Method Room Air 10/15/24 16:13 BMI result Body Mass Index 35.1 Results Reviewed Results Reviewed: CT SCAN OF ABDOMEN AND PELVIS 10/03/2024 Findings: The liver is enlarged with fatty infiltration. No biliary abnormalities. The gallbladder is surgically absent. The spleen is normal in size No pancreatic ductal dilatation No hydronephrosis no urinary tract calculi or obstruction Normal bowel caliber. No inflammatory bowel disease. No diverticulitis. The appendix is normal. No free fluid/free air No vascular abnormalities. No adenopathy. Bladder outline is smooth. There has been hysterectomy. No suspicious skeletal lesions. Impression : Enlarged fatty liver. Otherwise unremarkable. Assessment & Plan Assessment & Plan (1) GERD (gastroesophageal reflux disease): Code(s): K21.9 - Gastro-esophageal reflux disease without esophagitis Category: Medical Qualifiers: Esophagitis presence: esophagitis presence not specified Qualified Code(s): K21.9 - Gastro-esophageal reflux disease without esophagitis (2) Chronic constipation: Code(s): K59.09 - Other constipation Category: Medical (3) Postprandial epigastric pain: Code(s): R10.13 - Epigastric pain (4) Postprandial abdominal bloating: Code(s): R14.0 - Abdominal distension (gaseous) Plan Patient will start Nexium and stop pantoprazole. Patient will take sucralfate at bedtime. Avoid dietary triggers and late night snacking. Staying upright for minimum 3 hours after meals discussed with patient. Patient will try to take Citrucel to help her bulk her stools. Increase fluid intake and activity to promote better bowel motility. Patient will return in 7 weeks and we will discuss going for colonoscopy and upper endoscopy. Will check vitamin-D, B12, folate, thyroid study and transglutaminase. She is agreeable to current plan of care and verbalizes understanding of instructions. She was given the opportunity to ask questions and all questions answered. Thank you for allowing me to participate in her care Orders: Orders Vitamin D 25-OH (D2 and D3) Today E55.9 - Vitamin D deficiency, unspecified Transglutaminase IgA Today R10.9 - Unspecified abdominal pain TSH reflex Free T4 Today K59.00 - Constipation, unspecified Vitamin B12 and Folate Today R19.7 - Diarrhea, unspecified Medications: New methylcellulose (laxative) (Citrucel) 500 mg PO DAILY 30 tabs 2RF K59.00 - Constipation, unspecified esomeprazole magnesium (Nexium) 40 mg PO DAILY 30 caps 2RF K21.9 - Gastro-esophageal reflux disease without esophagitis Changed From sucralfate (Carafate) 1 g PO Q6H 7 days 28 tabs 0RF To sucralfate (Carafate) 1 g PO BEDTIME 30 tabs 3RF Coding Level of Care Code Est Pt Level 4 (00290) Complex EM visit Add On G2211 Diagnoses Gastroesophageal reflux disease, unspecified whether esophagitis present K21.9 Esophagitis presence: esophagitis presence not specified Chronic constipation K59.09 Postprandial epigastric pain R10.13 Postprandial abdominal bloating R14.0 Time Spent (min) 40 Comment 25 minutes spent with patient and additional 15 minutes spent reviewing her records
[2024-10-15 16:13] VITALS: BP 130/64; PULSE 86; O2SAT 98; BMI 35.1
== END 2024-10-15 16:36 | disposition home or self-care (01) ==
PROVIDERS: PCP Registered Nurse; Visit Provider Nurse Practitioner Family
DX: K21.9 Gastro-esophageal reflux disease without esophagitis (principal); K59.09 Other constipation; R10.13 Epigastric pain; R14.0 Abdominal distension (gaseous)
CPT/HCPCS: 99214

== ENCOUNTER → 2024-10-15 16:01 | Outpatient (BNVA) | payer MEDICAID, SELFPAY | PROVIDERS: PCP Registered Nurse; Visit Provider Nurse Practitioner Family | DX: K21.9 Gastro-esophageal reflux disease without esophagitis (principal); K59.04 Chronic idiopathic constipation; R10.13 Epigastric pain; R14.0 Abdominal distension (gaseous); E55.9 Vitamin D deficiency, unspecified | CPT/HCPCS: 99212 ==

== ENCOUNTER 2024-10-16 12:38 | Outpatient (REF) | payer MEDICAID, SELFPAY ==
--- OUTSIDE RECORDS SUMMARY | 2024-10-11 14:00 | XMS_ITS | Encounter Summary ---
Author Organization [facility] Address [address] [place] [address] Care Team Providers Care Insurance Special Agent Name Role Phone Pcp, Non-[facility] Primary Care Provider Unavailabl e Reason for Visit * Reason Comments Follow Up Encounter Details Date Type Department Care Team ([facility] st Contact Info) Description 10/11/2024 2:00 PM EDT Behavioral Health Visit [facility] [address] [place] [phone] Kavya Martinez APRN [address] [facility] [place] [id number] Social History Tobacco Use Types Packs/Day Years Used Date Smoking Tobacco: Every Day Cigarettes 1.5 32.6 Started: 1992 Smokeless Tobacco: Never Alcohol Use [...] Progress Notes * Kavya Martinez APRN - 10/11/2024 2:26 PM EDTAssociated Problem(s): PTSD (post- traumatic stress disorder) A: Symptoms under control P: Continue therapy Bi monthly Continue Clonidine. * Kavya Martinez APRN - 10/11/2024 2:24 PM EDTAssociated Problem(s): Severe recurrent major depression w/psychotic features, mood-congruent (CMS & HHS-HCC) Assessment: symptoms under control Plan Continue Seroquel to 150 mg nightly Continue Therapy Bi- monthly. Follow- up in 12 weeks Monitor for auditory hallucinations and mood symptoms * Kavya Martinez APRN - 10/11/2024 2:21 PM EDT [facility] OFFICE VISIT Name: Ishmael Guadarrama : 1975 PCP: Non-[facility] Pcp ASSESSMENT AND PLAN Problem List Items Addressed This Visit BH/MH Problems Severe recurrent major depression w/psychotic features, mood-congruent (CMS & HHS-HCC) - Primary (Chronic) Assessment: symptoms under control Plan Continue Seroquel to 150 mg nightly Continue Therapy Bi- monthly. Follow- up in 12 weeks Monitor for auditory hallucinations and mood symptoms Relevant Medications QUEtiapine 150 mg tab Generalized anxiety disorder Relevant Medications cloNIDine (CATAPRES) 0.1 mg tablet PTSD (post-traumatic stress disorder) A: Symptoms under control P: Continue therapy Bi monthly Continue Clonidine. Follow-up: Return in about 4 weeks (around 11/08/2024). Kavya Martinez APRN 07/19/2024 3:40 PM EDT REASON FOR VISIT Chief Complaint Patient presents with Follow Up HPI/ROS Patient seen for follow up, she is doing well with current regiment, reports remission of symptoms,mood continue to be stable, enjoying the summer with family, has been visit her mother, going to the pool, currently visiting brother. Patient denies any stressors. Sleep: No issues with falling or staying asleep Appetite: no issues Substances: Patient denies substance use Safety: Denies SI/HI/plan Perception: Denies AVH Medical: None reported. PHQ No data to display Review of [...] as otherwise needed. . Kavya Martinez APRN 10/11/2024 documented in this encounter Plan of Treatment Upcoming Encounters Date Type Department Care Team ([facility] st Contact Info) Description 11/29/2024 4:00 PM EDT Behavioral Health Visit [facility] [address] [place] [phone] Kavya Martinez APRN [address] [facility] [place] [id number] documented as of this encounter Visit Diagnoses Diagnosis Severe recurrent major depression w/psychotic features, mood-congruent (CMS & [facility]-HCC)- Primary Major depressive disorder, recurrent episode, severe, specified as with psychotic behavior PTSD (post-traumatic stress disorder) Posttraumatic stress disorder Generalized anxiety disorder documented in this encounter Care Teams Insurance Special Agent Relationship Specialty Start Date End Date Pcp, Non-hc PCP - General 11/14/23 documented as of this encounter
[2024-10-16 14:01] LABS: Folate 7.6 ng/mL (> or = 4.0); Vitamin B12 286 pg/mL (200-900)
[2024-10-21 13:58] LABS: Vitamin D 25-OH, D2 <4 ng/mL; Vitamin D 25-OH, D3 20 ng/mL; Vitamin D 25-OH, Total 20 ng/mL (30-100)
== END 2024-10-16 12:39 | disposition home or self-care (01) ==
LOC: HO.LAB 12:38
PROVIDERS: PCP Registered Nurse; Visit Provider Nurse Practitioner Family
DX: E55.9 Vitamin D deficiency, unspecified (principal); K59.00 Constipation, unspecified; R19.7 Diarrhea, unspecified; R10.9 Unspecified abdominal pain
CPT/HCPCS: 36415; 82306; 82607; 82746; 84443; 86364

== ENCOUNTER 2024-12-13 09:45 | Outpatient (REF) | payer MEDICAID, SELFPAY ==
[2024-12-13 11:48] LABS: Alanine Aminotransferase 20 U/L (0-31); Albumin Level 4.3 g/dL (3.5-5.0); Alkaline Phosphatase 90 U/L (39-117); Anion Gap 13 (12-20); Aspartate Amino Transferase 32 U/L (5-31); Blood Urea Nitrogen 9 mg/dL (9-16); Calcium 9.0 mg/dL (8.4-10.2); Carbon Dioxide 23 mmol/L (22-29); Chloride 109 mmol/L (96-108); Cholesterol 144 mg/dL (<200); Estimated Glomerular Filt Rate > 60; HDL Cholesterol 29 mg/dL (>40); Potassium 4.1 mmol/L (3.3-5.1); Sodium 141 mmol/L (135-145); Total Protein 7.6 g/dL (6.5-8.0); Triglycerides 132 mg/dL (<150)
[2024-12-13 12:27] LABS: HBS Num1 466.35 mIU/mL (0-7.99); HBsAGNum1 0.50 S/CO (0.00-0.99); Hepatitis B Surface Antigen Negative (Negative); ~HepC Num1 0.07 S/CO (0.00-0.79); ~Hepatitis B Surface Antibody REACTIVE (Nonreactive); ~Hepatitis C Antibody Nonreactive (Nonreactive)
[2024-12-13 13:38] LABS: Reflex LDLD? No
[2024-12-17 00:19] LABS: TS Negative Control Passed; TS Panel A 0; TS Panel B 0; TS Positive Control Passed; TSpotTB Negative (Negative)
[2024-12-17 23:27] LABS: Rapid Plasma Reagin Ab Titer 1:4
== END 2024-12-13 09:46 | disposition home or self-care (01) ==
LOC: HO.HHCL 09:45
PROVIDERS: PCP Registered Nurse; Visit Provider Internal Medicine
DX: B20 Human immunodeficiency virus [HIV] disease (principal)
CPT/HCPCS: 36415; 80053; 80061; 86481; 86592; 86593; 86706; 86803; 87340

== ENCOUNTER 2025-01-03 12:39 | Outpatient (REF) | payer MEDICAID, SELFPAY ==
--- OUTSIDE RECORDS SUMMARY | 2024-12-29 23:59 | XMS_ITS | Continuity of Care Document ---
Author Organization [facility] Address [address] [place] [id number]- Care Team Providers Care Limited Radiology Technician Name Role Phone [place] SHEET METAL INSTALLER, [place] Primary Care Physician [phone] Encounter [facility] Date(s): 11/29/24 - 12/29/[address] [address]- Attending Physician: Funmi Loera Admitting Physician: Funmi Loera Referring Physician: Funmi Loera Referring Physician: Arlen Norton Encounter Type: Triage Allergies, Adverse Reactions, Alerts Substance Criticality Severity Reaction Reaction Severity Status Vicodin rash Active Medications albuterol CFC free 90 mcg/inh inhalation aerosol 2, puffs, Inhalation, Every 4 hours, PRN, # 9 Gm, Refills 0, Maintenance, 06/17/23 10:22:00 AM EDT, Aerosol Start Date: 06/17/23 Status: Ordered Medication Dispense Status: Completed Quantity: 9.0 Unit: g Total Allowed Fills: 1 Fills Dispensed: 0 Breo Ellipta 200 mcg-25 mcg/inh inhalation powder 1 puffs, Inhalation, Daily in AM, 0 Refills, Maintenance, 06/17/23 10:26:00 AM EDT, Powder, Partial fill upon patient request if the prescription is for a schedule II opioid drug. Start Date: 06/17/23 Status: Ordered Medication Dispense Status: Completed Total Allowed Fills: 1 Fills Dispensed: 0 Cabenuva 600/900 intramuscular suspension, extended release INJECT 6 ML INTRAMUSCULARLY EVERY 8 WEEKS Start Date: 06/17/23 Status: Ordered Medication Dispense Status: Completed Total Allowed Fills: 1 Fills Dispensed: 0 cloNIDine 0.1 mg oral tablet 0.1 mg, 1, tablet, By Mouth, 2 times a day, # 180 tablet, Refills 0, Maintenance, 04/19/22 8:07:00 AM EST, Partial fill upon patient request if the prescription is for a schedule II opioid drug. Start Date: 04/19/22 Status: Ordered Medication Dispense Status: Completed Quantity: 180.0 Unit: tablet Total Allowed Fills: 1 Fills Dispensed: 0 ibuprofen 800 mg oral tablet 800 mg, 1, tablet, By Mouth, Every 8 hours, # 90 tablet, Refills 0, Tot. Refills 0, Maintenance, 06/20/23 4:04:00 PM EDT, Route to Pharmacy Electronically, [facility], Partial fill upon patient request if the prescription is for a schedule II opioid drug., 150, cm, 06/20/23 7:24:00 EDT, Height, 93, kg, 06/20/23 7:24:00 EDT, Dry Weight Start Date: 06/20/23 Status: Ordered Medication Dispense Status: Completed Quantity: 90.0 Unit: tablet Total Allowed Fills: 1 Fills Dispensed: 0 Incruse Ellipta 62.5 mcg/inh inhalation powder 1 each, Inhalation, Every 24 hours, doses should be taken at least 24 hours apart, # 30 each, 0 Refills, Maintenance, 06/17/23 10:25:00 AM EDT, Powder, Partial fill upon patient request if the prescription is for a schedule II opioid drug. Start Date: 06/17/23 Status: Ordered Medication Dispense Status: Completed Quantity: 30.0 Unit: each Total Allowed Fills: 1 Fills Dispensed: 0 olmesartan 20 mg oral tablet 2 tablet = 40 mg, By Mouth, Daily in AM, # 30 tablet, 0 Refills, Maintenance, 04/21/23 2:50:00 PM EST, Tablet, Partial fill upon patient request if the prescription is for a schedule II opioid drug. Start Date: 04/21/23 Status: Ordered Medication Dispense Status: Completed Quantity: 30.0 Unit: tablet Total Allowed Fills: 1 Fills Dispensed: 0 SEROquel 200 mg oral tablet 200 mg, 1, tablet, By Mouth, 2 times a day, in am and midday; 600mg at night, # 60 tablet, Refills 0, Maintenance, 04/21/23 2:51:00 PM EST, Partial fill upon patient request if the prescription is fora schedule II opioid drug. Start Date: 04/21/23 Status: Ordered Medication Dispense Status: Completed Quantity: 60.0 Unit: tablet Total Allowed Fills: 1 Fills Dispensed: 0 SUMAtriptan 50 mg oral tablet 1 tablet = 50 mg, By Mouth, Daily, PRN for migraine headache, may repeat dose after 2 hours up to amaximum of 2, # 18 tablet, 0 Refills, Maintenance, 04/19/22 8:08:00 AM EST, Tablet, Partial fill upon patient request if the prescription is for a schedule II opioid drug. Start Date: 04/19/22 Status: Ordered Medication Dispense Status: Completed Quantity: 18.0 Unit: tablet Total Allowed Fills: 1 Fills Dispensed: 0 Tylenol 325 mg oral tablet 975 mg, 3, tablet, By Mouth, Every 6 hours, PRN, # 50 tablet, Refills 0, Tot. Refills 0, Maintenance, for pain, 06/20/23 4:04:00 PM EDT, Route to Pharmacy Electronically, [facility], Partial fill upon patient request if the prescription is for a schedule II opioid drug., 150, cm, 06/20/23 7:24:00 EDT, Height, 93, kg, 06/20/23 7:24:00 EDT, Dry Weight Start Date: 06/20/23 Status: Ordered Medication Dispense Status: Completed Quantity: 50.0 Unit: tablet Total Allowed Fills: 1 Fills Dispensed: 0 Problem List Condition Confirmation Course Effective Dates Status H ealth Status Informant DENISE II (cervical intraepithelial neoplasia II) Confirmed Active History of cervical dysplasia Confirmed Active History of total hysterectomy Confirmed Active HIV carrier Confirmed Active Obese class II Confirmed Active VAIN I (vaginal intraepithelial neoplasia grade I) Confirmed Active Social History Social History Type Response Smoking Status 10 or more cigarette s (1/2 pack or more)/day in last 30 days; Interested in cessation: No; Tobacco use times per day: 1 1/2 PACK PER DAY; entered on: 05/24/23 Sex Sex Representation Female (finding) Laboratory * Event Display: Non BH Lab Results Authored Date: * Event Display: Non BH Lab Results Authored Date: Patient Care team information Care Team Personnel Name: Catalina Acosta Position: S Outreach Member Role: Lifetime Consulting Physician Name: Fanny Pedersen NP Position: Reference Physician Member Role: PCP Address: [address] [place] [id number] Telecom: Care Team Related Persons Name: MELQUIADES RAMOS Insurance Providers Guarantor name: RANJITTERI LOUIE [facility] Plan Information #: 1 Payer: [employer] Payer Identifier: BOBBY Member Number: [id number] Group Number: NA Subscriber Identifier: BOBBY Relationship to Subscriber: self Coverage Type: MEDICAID Coverage Verification Date: Telecom: NA Address:
--- NOTE | ~2025-01-03 | US_ITS ---
EXAMINATION: US DIAGNOSTIC ULTRASOUND BREAST, LEFT CLINICAL INFORMATION: 3 month follow-up for hyperechoic heterogeneous area in the left breast at 5:00 3 cm from the nipple in a patient with a history of trauma to that area.. COMPARISON: Comparison is made with relevant prior imaging. TECHNIQUE: Ultrasound of the breast is performed with real-time son scale imaging and color Doppler. FINDINGS: Targeted color Doppler ultrasound scanning at 5:00 3 cm from the nipple demonstrates slight decrease in size of previously seen heterogeneous hyperechoic area measuring today 7 x 4 x 7 mm previously measuring 11 x 7 x 6 mm. Results are discussed with the patient at time of visit. US/US Breast LT Limited Mamm Only IMPRESSION: Heterogeneous hyperechoic area 5:00 3 cm from the nipple slightly decreased from prior. Ultrasound guided core needle biopsy versus one more 3 month follow-up is offered to the patient. Patient prefers 3 month follow-up benign biopsy if this area still persists. Recommend 3 month follow-up ultrasound with mammogram to further evaluate size and morphology. If this area is not resolved, ultrasound guided core needle biopsy should be considered for histologic confirmation. ASSESSMENT: BI-RADS 3: Probably Benign RECOMMENDATION: Diagnostic ultrasound and mammography 3 months. Electronically signed by: So Cruz DO 01/03/2025 01:15 PM EDT
== END 2025-01-03 12:40 | disposition home or self-care (01) ==
LOC: HO.MAMMO 12:39
PROVIDERS: PCP Registered Nurse; Visit Provider Registered Nurse
DX: R92.2 Inconclusive mammogram (principal)
CPT/HCPCS: 76642

== ENCOUNTER → 2025-01-03 13:30 | Outpatient (BNV) | payer MEDICAID, SELFPAY | PROVIDERS: PCP Registered Nurse; Visit Provider Internal Medicine | DX: R92.30 Dense breasts, unspecified (principal) | CPT/HCPCS: 76642 ==

== ENCOUNTER 2025-01-11 10:49 | Outpatient (REF) | payer MEDICAID, SELFPAY ==
[2025-01-11 13:16] LABS: MANUAL DIFF FLAG NO
[2025-01-11 13:33] LABS: Hematocrit 40.2 % (37.0-47.0); Hemoglobin 13.5 g/dl (12.0-16.0); Imm Gran Abs Auto 0.07 X10*3/uL (0.00-0.03); Imm Gran Pct Auto 0.8 % (0.0-0.4); Lymphocytes Absolute Auto 3.4 X10*3/uL (1.2-4.9); Mean Corpuscular HGB Conc 33.6 g/dl (31.0-35.0); Mean Corpuscular Hemoglobin 32.0 pg (27.0-33.0); Mean Corpuscular Volume 95.3 fL (80.0-98.0); NRBC Abs Auto 0.000 X10*3/uL (0.0-0.012); NRBC Pct Auto 0.0 /100WBC (0.0-0.2); Platelet Count 178 X10*3/uL (160-400); Red Blood Count 4.22 X10*6/uL (4.20-5.50); White Blood Count 8.3 X10*3/uL (4.8-10.8)
[2025-01-13 04:24] LABS: HBsAGNum1 0.65 S/CO (0.00-0.99); Hepatitis B Surface Antigen Negative (Negative); ~HepC Num1 0.08 S/CO (0.00-0.79); ~Hepatitis B Surface Antibody REACTIVE (Nonreactive); ~Hepatitis C Antibody Nonreactive (Nonreactive)
[2025-01-15 20:52] LABS: HIV RNA PCR Qn Copies 147 copies/mL (NOT DETECTED); HIV RNA PCR Qn Log Copies 2.17 (NOT DETECTED)
[2025-01-17 15:19] LABS: Absolute CD3 Count 2297 cells/uL (840-3060); Absolute CD8 Count 1225 cells/uL (180-1170); Percent CD3 Cells 75 % (57-85); Percent CD8 Cells 40 % (12-42)
== END 2025-01-11 10:50 | disposition home or self-care (01) ==
LOC: HO.HHCL 10:49
PROVIDERS: PCP Registered Nurse; Visit Provider Internal Medicine
DX: Z11.59 Encounter for screening for other viral diseases (principal); B20 Human immunodeficiency virus [HIV] disease
CPT/HCPCS: 36415; 82550; 83036; 85025; 86359; 86360; 86706; 86803; 87340; 87536